=== PATIENT | male | born 1935 | race Caucasian/White ===

== ENCOUNTER → 2017-06-21 | Day surgery (SDC) | payer OTHER ==
[2017-05-25 10:30] VITALS: Ht 170.2 cm; Wt 83.2 kg
[~2017-06-21] VITALS: Ht 170.2 cm; Wt 83.2 kg
[~2017-06-21] MED LIST: 500ML BSS 0.3ML EPI 1:1000PF IRRIG ONE; ACETAMINOPHEN 325 MG TAB PO PRN; AMVISC PLUS 0.8ML SYRINGE INT OCU ONE; ASPEC81 PO; ATOR-24 PO; ATROPINE SULFATE 0.1 MG/ML 5ML SYR IV PRN; BSS FLUSH ONE; CINN500T PO; DORZ1SOL OPB; EpHEDrine SULFATE INJ 50 MG/ML AMP IV PRN; EpINEphrine INJ 1MG/ML AMP 1 MG/ML AMP ONE; FENTANYL CITRATE INJ 50 MCG/1 ML 2 ML VIAL IV PRN; FLV1 PO; GLC/500 PO; Glyburide PO; LACTATED RINGER'S 1000ML 500 ML IV SCH; LIDOCAINE 3.5% OPH GEL PER APPLICATION CHARGE ONE; LIDOCAINE HCL 1% MPF 2 ML VIAL ONE; LISI40TA PO; MIDAZOLAM HCL 1 MG/ML 2ML VIAL ONE; MULT-506 PO; OCUCOAT 1 ML SOLN IO ONE; OMEG10007 PO; ONDANSETRON INJ 2 MG/ML 2 ML VIAL IV PRN; POVIDONE-IODINE OP SOLN 30 ML BTL ONE; PROPARACAINE 0.5% OP SOLN PER DROP CHARGE OPL SCH; TOBRAMYCIN/DEXAMETHASONE OPH OINT PER APPLN CHARGE ONE
[2017-06-21] MEDS: PHENYLEPHRINE HCL 2.5% OP SOLN PER DROP CHARGE OPL SCH ×2 (06:40→06:46)
[2017-06-21] MEDS: TROPICAMIDE 1% OP SOLN PER DROP CHARGE OPL SCH ×2 (06:41→06:48)
[2017-06-21] MEDS: CYCLOPENTOLATE HCL 1% OP SOLN PER DROP CHARGE OPL SCH ×2 (06:43→06:49)
[2017-06-21] MEDS: KETOROLAC 0.5% OP SOLN PER DROP CHARGE OPL SCH ×2 (06:44→06:50)
[2017-06-21] MEDS: GATIFLOXACIN OP SOLN PER DROP CHARGE OPL SCH ×2 (06:45→07:02)
--- NOTE | 2017-06-21 06:56 | History & Physical Bridge - [place] ---
H&P Re-Evaluation Bridge Note: I have examined the patient, reviewed the History & Physical and in the interval since the performance of the History & Physical I have noted the following changes of clinical significance: No changes noted
--- NOTE | 2017-06-21 07:46 | Discharge Instructions-SurgCtr ---
Discharge Instructions Date of Service Jun 21, 2017. Visit Reason for Visit: Cataract Left Eye Discharge Discharge Diagnosis / Problem: cataract Discharge Goals Goal(s): Improve function Activity Recommendations Activity Limitations: per Instructions/Follow-up section Anesthesia . Post Anesthesia Instructions: If you have had General Anesthesia or IV Sedation: * Do not drive today. * Resume driving when surgeon permits. * Do not make important decisions or sign legal documents today. * Call surgeon for: 1. Temperature elevations greater than 101 degrees F. 2. Uncontrollable pain. 3. Excessive bleeding. 4. Persistent nausea and vomiting. 5. Medication intolerance (nausea, vomiting or rash). * For nausea and vomiting use only clear liquids such as: tea, soda, bouillon until nausea subsides, then gradually increase diet as tolerated. * If you have any concerns or questions, call your surgeon's office. If physician is unavailable and it is an emergency, call 911 or go to the nearest emergency room. . Diet Recommendations Home Diet: resume previous diet Procedures Procedures Performed: Left Cataract Phacoemulsification With Intraocular Lens Implant Pending Studies Studies pending at discharge: no Medical Emergencies . Who to Call and When: Medical Emergencies: If at any time you feel your situation is an emergency, please call 911 immediately. . Non-Emergent Contact Non-Emergency issues call your: Systems Specialist . . "Provider Documentation" section prepared by Ruperto Tran. .
--- NOTE | 2017-06-21 07:47 | [facility] Operative Report ---
Operative Report Date of Service Jun 21, 2017. Operative Report 1. PREOPERATIVE DIAGNOSIS: Cataract of the left eye. 2. POSTOPERATIVE DIAGNOSIS: Same. 3. PROCEDURE: Phacoemulsification with intraocular lens implantation of the left eye. SURGEON: Dr. Ruperto Tran. ANESTHESIA: Topical Lidocaine gel, 1% Non- Preserved intracameral Lidocaine, and monitored intravenous sedation. INDICATIONS FOR THE PROCEDURE: The patient is a 82 - year-old male with a history of cataract of the left eye causing significant visual impairment. The details of the proposed procedure were explained to the patient who asked appropriate questions and following discussion of all risks, benefits and alternatives agreed to have the procedure done. 4. OPERATION AND FINDINGS: DESCRIPTION OF PROCEDURE: After informed consent was obtained, the patient was brought to the Operating Room at the [facility]. The patient was placed in a supine position and then the left eye was prepped and draped in the usual sterile fashion for intraocular surgery. A drop of topical Lidocaine gel was placed in the operative eye. A wire lid speculum was then placed in the fornices. A corneal paracentesis was then created temporally. The Non-Preserved Lidocaine was then instilled into the anterior chamber. The anterior chamber was then pressurized with viscoelastic. A 2.0 mm clear corneal incision was then created temporally. A cystotome was inserted into the anterior chamber and used to create a tear in the anterior lens capsule. This capsular tear was then used to create a small flap and the flap was dragged in a counterclockwise direction in order to create a continuous curvilinear capsulorrhexis. Hydrodissection was accomplished with balanced salt solution. Phacoemulsification of the lens nucleus was then performed in a standard [id number] technique. The phaco time was 27 seconds with an average power of 12 %. The remaining cortical material was removed using irrigation aspiration. The capsular bag was then filled with viscoelastic. A [employer] MI60L +19.0 diopters lens was then loaded into the injector and injected into the capsular bag. The remaining viscoelastic was removed with the irrigation aspiration handpiece. The wound was hydrated and then checked and found to be watertight. The intraocular pressure was checked and found to be adequate. The wire lid speculum was removed and the patient's face was cleaned and dried. TobraDex ointment was placed in the inferior fornix. The patient was discharged to the Recovery Room having tolerated the procedure well. There were no complications. The patient will be seen tomorrow in the office for follow-up. I attest to the content of the Intraoperative Record and any orders documented therein. Any exceptions are noted below.
[2017-06-21 07:48] VITALS: TEMP 36.6
--- NOTE | 2017-06-21 08:06 | Anesthesia Progress Nt - [facility] ---
Anesthesia Post Op Note Date & Time Jun 21, 2017 at 08:06 Vital Signs Pain Intensity: 0 Vital Signs Past 12 Hours Date Time Temp Pulse Resp B/P (MAP) Pulse Ox O2 Delivery O2 Flow Rate FiO2 06/21/17 07:48 36.6 52 16 171/74 (106) 97 Room Air 06/21/17 06:32 37.0 62 18 161/78 (105) 95 Room Air Notes Mental Status: alert / awake / arousable, participated in evaluation Pt Amnestic to Procedure: Yes Nausea / Vomiting: adequately controlled Pain: adequately controlled Airway Patency, RR, SpO2: stable & adequate BP & HR: stable & adequate Hydration State: stable & adequate Anesthetic Complications: no major complications apparent
[2017-06-21 08:12] VITALS: BP 173/73; PULSE 52; O2SAT 96
== END | disposition home or self-care (01) ==
LOC: X.SURG 06:10
PROVIDERS: ATTEND Ophthalmology
DX: H26.9 Unspecified cataract (principal); E11.9 Type 2 diabetes mellitus without complications; I10 Essential (primary) hypertension; N52.9 Male erectile dysfunction, unspecified; I35.0 Nonrheumatic aortic (valve) stenosis; H90.3 Sensorineural hearing loss, bilateral; E78.5 Hyperlipidemia, unspecified; Z85.46 Personal history of malignant neoplasm of prostate; Z79.82 Long term (current) use of aspirin; E78.00 Pure hypercholesterolemia, unspecified

== ENCOUNTER 2020-09-06 02:44 | Inpatient (IN) ==
--- OUTSIDE RECORDS SUMMARY | 2020-09-06 02:50 | External Medical Summary | Continuity of Care Document ---
:1935 Author Name Raven Obrien Address Unavailable Unavailable , Care Team Providers Name Role Phone Raven Obrien Unavailable [email or web address] PCP, UNKNOWN Unavailable Unavailable Problems Active medical history not documented Allergies and Adverse Reactions Allergy history not documented Medications Medications not documented Procedures Procedures not documented Immunizations Immunizations not documented Plan of Treatment Planned Observations Planned Goals not documented Results No Known Results Results not documented
[2020-09-06] MEDS ORDERED: FAMOTIDINE 20MG/5ML IV PUSH IV STA (02:57)
[2020-09-06] MEDS ORDERED: SODIUM CHLORIDE 0.9% 1000ML 1,000 ML IV SCH (03:00)
--- NOTE | 2020-09-06 03:17 | Emergency Department Note ---
History of Present Illness General Chief complaint: Unresponsive Stated complaint: UNRESPONSIVE Time Seen by Provider: 09/06/20 02:51 Source: EMS Mode of arrival: EMS Limitations: altered mental status History of Present Illness Provider complaint: Unresponsive episode This is an 85-year-old male brought in from home via EMS due to a sudden change in mental status leading to unresponsiveness witnessed by the . The reported to EMS he had been having difficulty swallowing for 3 days, this evening suddenly appeared to be choking or gagging and then went unresponsive in front of her. She noted he did not appear to be breathing so she started doing CPR and called 911. On EMS arrival patient had a pulse and was hypertensive although had agonal respirations. They inserted an OPA without difficulty and began bagging the patient. denies any prior GI history. Stated he does have a history of dementia but has been fairly active and independent otherwise. No recent illness or change in medications. They did call for medical command for orders for etomidate in order to secure the patient's airway as even with bagging and improving oxygenation he continued to be unresponsive. Patient was intubated by EMS prior to arrival with a 7.5 ET tube. EMS did note that while they had a clear visualization of the airway there appeared to be emesis in the posterior oropharynx that required suctioning. No blood was noted. No other evidence of airway edema or foreign body. Patient given Versed 7.5 mg and fentanyl 150 mcg post intubation for sedation in route. There was additional emesis that required in line suctioning. Patient's blood pressure was improved upon arrival here, patient being bagged easily, and was still unresponsive. Pt seen during a time of high acuity and national emergency pandemic while wearing PPE. Home Medications Medication Instructions Recorded Confirmed Type amlodipine 5 mg PO DAILY 09/06/20 09/06/20 History aspirin [Children's Aspirin] 81 mg PO DAILY 09/06/20 09/06/20 History atorvastatin 40 mg PO DAILY 09/06/20 09/06/20 History cinnamon bark [Cinnamon] 500 mg PO DAILY 09/06/20 09/06/20 History folic acid 1 mg PO DAILY 09/06/20 09/06/20 History lisinopril 40 mg PO DAILY 09/06/20 09/06/20 History multivitamin 1 tab PO DAILY 09/06/20 09/06/20 History omega-3 fatty acids 1,000 mg PO DAILY 09/06/20 09/06/20 History Allergies Allergy/AdvReac Type Severity Reaction Status Date / Time Penicillins Allergy Unknown UNKNOWN Verified 09/06/20 03:06 REACTION - HAPPENED A CHILD Past Med/Surg History Social History Smoking Status: Unknown if ever smoked Preferred Language: Bengali Feels Safe at Home: Yes Review of Systems Unobtainable due to cognitive status and Unobtainable due to endotracheal tube Physical Exam Vital Signs Vital Signs - 24 hr 09/06/20 02:50 09/06/20 02:52 09/06/20 03:01 Pulse Rate 55 L 53 L 52 L Pulse Rate from SpO2 Sensor 53 L 52 L Respiratory Rate 20 Respiratory Effort / Characteristics Mechanically Ventilated Blood Pressure 132/55 L 132/55 L 111/76 Blood Pressure Mean 80 65 81 Pulse Oximetry 98 98 100 Oxygen Delivery Method Mechanical Vent Mechanical Vent Fraction of Inspired Oxygen Sepsis Recent Fever Within 48 Hours No Sepsis New/Unexplained Change in Mental Status Yes Sepsis Action Taken by Nursing No Action Required End-Tidal CO2 36 40 09/06/20 03:10 09/06/20 03:45 09/06/20 03:51 Pulse Rate 53 L 50 L 52 L Pulse Rate from SpO2 Sensor 53 L 50 L Respiratory Rate 13 17 Respiratory Effort / Characteristics Blood Pressure 113/50 L 161/61 H 189/175 H Blood Pressure Mean 60 83 179 Pulse Oximetry 97 100 100 Oxygen Delivery Method Mechanical Vent Mechanical Vent Mechanical Vent Fraction of Inspired Oxygen Sepsis Recent Fever Within 48 Hours Sepsis New/Unexplained Change in Mental Status Sepsis Action Taken by Nursing End-Tidal CO2 30 09/06/20 03:52 09/06/20 04:01 09/06/20 04:11 Pulse Rate 53 L 50 L 52 L Pulse Rate from SpO2 Sensor 51 L Respiratory Rate 19 14 12 Respiratory Effort / Characteristics Blood Pressure 176/63 H 183/68 H Blood Pressure Mean 85 89 Pulse Oximetry 97 100 100 Oxygen Delivery Method Mechanical Vent Mechanical Vent Fraction of Inspired Oxygen 50 Sepsis Recent Fever Within 48 Hours Sepsis New/Unexplained Change in Mental Status Sepsis Action Taken by Nursing End-Tidal CO2 38 09/06/20 04:20 09/06/20 04:30 09/06/20 04:40 Pulse Rate 70 50 L 50 L Pulse Rate from SpO2 Sensor 52 L 50 L Respiratory Rate 14 15 12 Respiratory Effort / Characteristics Blood Pressure 180/80 H 187/72 H 185/76 H Blood Pressure Mean 92 100 116 Pulse Oximetry 100 100 99 Oxygen Delivery Method Mechanical Vent Mechanical Vent Mechanical Vent Fraction of Inspired Oxygen Sepsis Recent Fever Within 48 Hours Sepsis New/Unexplained Change in Mental Status Sepsis Action Taken by Nursing End-Tidal CO2 09/06/20 04:50 09/06/20 05:00 09/06/20 05:10 Pulse Rate 67 48 L 48 L Pulse Rate from SpO2 Sensor 53 L 48 L 48 L Respiratory Rate 17 13 12 Respiratory Effort / Characteristics Blood Pressure 169/78 H 151/62 H 144/65 H Blood Pressure Mean 95 89 79 Pulse Oximetry 100 100 100 Oxygen Delivery Method Mechanical Vent Mechanical Vent Mechanical Vent Fraction of Inspired Oxygen Sepsis Recent Fever Within 48 Hours Sepsis New/Unexplained Change in Mental Status Sepsis Action Taken by Nursing End-Tidal CO2 GENERAL: unresponsive, intubated EYE EXAM: normal conjunctiva, pupils constricted and minimally reactive b/l OROPHARYNX: ETT in place, MMM NECK: supple, no nuchal rigidity, no adenopathy, non-tender LUNGS: Clear to auscultation. Normal chest wall mechanics, no w/r/r HEART: NAIDA noted, S1 normal and S2 normal ABDOMEN: abdomen soft, non-tender, normo-active bowel sounds, no masses, no rebound or guarding. Evidence of resolving ecchymosis at left costal margin BACK: Back is symmetrical on inspection and there is no deformity, no midline tenderness, no CVA tenderness. SKIN: no rashes and no bruising UPPER EXTREMITIES: upper extremities are grossly normal. nml pulses b/l. LOWER EXTREMITIES: No pitting edema. nml pulses b/l. NEURO EXAM: GCS 3 Course Course 0350: Pt's now here. VS stable. Hypothermia noted by staff. Will start rewarming. 0412: Discussed with patient's . She describes episodes of difficulty swallowing and choking over the last 2 weeks. She states she is perform the Heimlich maneuver on him several times as a result. She states her sister is up visiting from [place] and heard him get up in the middle the night and came and got her stating that he did not look well. She stated he appeared to be motioning as though he could not swallow or something was stuck again, however her sister had noted that it did not appear that he had been trying to eat anything. She states she again tried the Heimlich maneuver, and then tried to take him into the bathroom. States while trying to get him into the bathroom he became unresponsive and slumped to the floor and did not appear to be breathing normally. She denies that he is ever needed or had an EGD. He has no history of any esophageal or stomach problems. She denies any recent change in medication, other recent illness, or known sick contacts. 0426: Staff attempting to place madrigal. Pt hypertensive again. No response otherwise. Staff did state he did show some responsiveness when they performed COVID nasal swab. 0436: Discussed with Dr. Foster. 0511: Repeat ABg improved, discussed changes with RT Jody. 0547: VS stable. going home. Awaiting bed in ICU. Dr. Foster has seen the patient at bedside. Administered Medications Sodium Chloride (Nss 1000ml) 1,000 mls @ 125 mls/hr IV .Q8H MAYO Stop: 10/06/20 06:08 Last Admin: 09/06/20 06:37 Dose: 125 mls/hr Documented by: [id number] Propofol (Diprivan) 1,000 mg in 100 mls @ 2.328 mls/hr IV .Q24H MAYO; Protocol Stop: 09/09/20 06:08 Last Titration: 09/06/20 06:48 Dose: 5 mcg/kg/min, 2.3 mls/hr Documented by: [id number] Admin: 09/06/20 06:20 Dose: 20 mcg/kg/min, 9.3 mls/hr Documented by: [id number] Cosigned by: [id number] Fentanyl Citrate (Fentanyl Drip) 1,250 mcg in 250 mls @ 5 mls/hr IV .Q50H MAYO; Protocol Stop: 09/20/20 06:08 Last Admin: 09/06/20 06:19 Dose: 25 mcg/hr, 5 mls/hr Documented by: [id number] Cosigned by: [id number] Ertapenem 1,000 mg/ Sodium (Chloride) 60 mls @ 100 mls/hr IV ONE ONE Stop: 09/06/20 07:20 Last Admin: 09/06/20 06:44 Dose: 100 mls/hr Documented by: [id number] Discontinued Medications Famotidine (Famotidine 20mg/5ml Iv Push) 20 mg IV ONE STA Stop: 09/06/20 02:58 Last Admin: 09/06/20 03:47 Dose: 20 mg Documented by: [id number] Sodium Chloride (Nss 1000ml) 1,000 mls @ 125 mls/hr IV .Q8H MAYO Stop: 10/06/20 02:59 Last Admin: 09/06/20 03:48 Dose: 125 mls/hr Documented by: [id number] Piperacillin Sod/Tazobactam Sod (Zosyn) 4.5 gm in 120 mls @ 240 mls/hr IV NOW ONE Stop: 09/06/20 04:45 Last Infusion: 09/06/20 06:31 Dose: 0 mls/hr Documented by: [id number] Admin: 09/06/20 05:11 Dose: 240 mls/hr Documented by: [id number] Pantoprazole Sodium 40 mg/ (Syringe) 10 mls @ 5 mls/min IV NOW ONE Stop: 09/06/20 04:38 Last Admin: 09/06/20 05:11 Dose: 5 mls/min Documented by: [id number] Ioversol (Optiray 320 125ml) 120 ml IV ONCE ONE Stop: 09/06/20 03:46 Last Admin: 09/06/20 03:45 Dose: 120 ml Documented by: [id number] Critical Care Time Critical Care Time: Yes Total Critical Care Time: 52 Critical care of 52 min performed to assess and manage high likelihood of life- threatening ams, involving labs and imaging performed with assessment to eval uate ams diagnosis with frequent reassessment. This time includes bedside time, treatment discussions with patient/family/consultants, documentation time and excludes procedure time. Medical Decision Making Differential Diagnosis Differential diagnoses includes but is not limited to toxic, metabolic, infectious, traumatic, cardiac, neurologic, hematologic, psychiatric and inflammatory etiologies. Medical Records Attestation: I reviewed the patient's medical records. Home Medications Current Medication List: was personally reviewed by me Laboratory Data Attestation: I reviewed the patient's lab results. Result diagrams: 09/06/20 03:12 09/06/20 03:12 Lab Results 09/06/20 09/06/20 09/06/20 Range/Units 03:03 03:12 03:12 WBC 6.98 (4.8-10.8) K/uL RBC 3.82 L (4.7-6.1) M/uL Hgb 12.3 L (14.0-18.0) g/dL POC Hgb 11.6 L (14.0-18.0) g/dl Hct 36.7 L (42-52) % POC Hct 34 L (42-52) % MCV 96.1 (80-100) fL MCH 32.2 (25-34) pg MCHC 33.5 (32-36) g/dL RDW Std Deviation 45.0 (36.4-46.3) fL RDW Coeff of Ailyn 12.9 (11.5-14.5) % Plt Count 202 (130-400) K/uL MPV 10.1 (7.4-10.4) fL Immature Gran % (Auto) 0.1 % Neut % (Auto) 63.7 % Lymph % (Auto) 25.4 % [place] % (Auto) 8.2 % Eos % (Auto) 2.3 % Baso % (Auto) 0.3 % Neut # (Auto) 4.45 (1.4-6.5) K/uL Lymph # (Auto) 1.77 (1.2-3.4) K/uL [place] # (Auto) 0.57 (0.11-0.59) K/uL Eos # (Auto) 0.16 (0-0.5) K/uL Baso # (Auto) 0.02 (0-0.2) K/uL Immature Gran # (Auto) 0.01 (0.00-0.02) K/uL PT (9.0-12.0) Seconds INR (0.9-1.1) POC pH 7.26 L (7.35-7.45) POC pCO2 59 H (35-46) mmHg POC pO2 339 H (80-95) mmHg POC HCO3 27 H (19-24) sharron/L POC Total CO2 28 (24-31) mmol/L POC Base Excess -1.0 (-9-1.8) sharron/L POC ABG O2 Sat 100.0 H (90-95) % POC Sodium 139 (135-144) mmol/L Sodium 140 (136-145) mmol/L POC Potassium 3.6 (3.3-5.0) mmol/L Potassium 4.1 (3.5-5.1) mmol/L POC Chloride (101-112) mmol/L Chloride 109 H (98-107) mmol/L Carbon Dioxide 27 (21-32) mmol/L Anion Gap 4.0 (3-11) POC Anion Gap (16-25) mmol/L POC BUN (7-18) mg/dl BUN 38 H (7-18) mg/dl Creatinine 1.25 (0.6-1.4) mg/dl POC Creatinine (0.6-1.3) mg/dl Est Cr Clr Drug Dosing Not Reportable Est GFR ( Amer) 60.5 Est GFR (Non-Af Amer) 52.2 BUN/Creatinine Ratio 30.5 H (10-20) Glucose 154 H (70-99) mg/dl POC Glucose (other) (70-99) mg/dl Lactate (0.4-2.0) mmol/L Calcium 8.0 L (8.5-10.1) mg/dl POC Ioniz Calcium Jamia (1.12-1.32) mmol/l Magnesium 2.5 H (1.8-2.4) mg/dl Total Bilirubin 0.4 (0.2-1) mg/dl AST 23 (15-37) U/L ALT 24 (12-78) U/L Alkaline Phosphatase 105 (45-117) U/L Troponin I 0.027 (0-0.045) ng/ml NT-Pro-B Natriuret Pep 881 (0-1800) pg/ml Total Protein 6.7 (6.4-8.2) gm/dl Albumin 3.3 L (3.4-5.0) gm/dl Globulin 3.4 (2.5-4.0) gm/dl Albumin/Globulin Ratio 1.0 (0.9-2) Lipase 279 (73-393) U/L Procalcitonin (0-0.5) ng/ml TSH 3.140 (0.300-4.500) uIu/ml COVID-19 Eval Order SARS-CoV-2, RNA, NAAT (NEGATIVE) 09/06/20 09/06/20 09/06/20 Range/Units 03:12 03:12 03:12 WBC (4.8-10.8) K/uL RBC (4.7-6.1) M/uL Hgb (14.0-18.0) g/dL POC Hgb (14.0-18.0) g/dl Hct (42-52) % POC Hct (42-52) % MCV (80-100) fL MCH (25-34) pg MCHC (32-36) g/dL RDW Std Deviation (36.4-46.3) fL RDW Coeff of Ailyn (11.5-14.5) % Plt Count (130-400) K/uL MPV (7.4-10.4) fL Immature Gran % (Auto) % Neut % (Auto) % Lymph % (Auto) % [place] % (Auto) % Eos % (Auto) % Baso % (Auto) % Neut # (Auto) (1.4-6.5) K/uL Lymph # (Auto) (1.2-3.4) K/uL [place] # (Auto) (0.11-0.59) K/uL Eos # (Auto) (0-0.5) K/uL Baso # (Auto) (0-0.2) K/uL Immature Gran # (Auto) (0.00-0.02) K/uL PT 11.2 (9.0-12.0) Seconds INR 1.1 (0.9-1.1) POC pH (7.35-7.45) POC pCO2 (35-46) mmHg POC pO2 (80-95) mmHg POC HCO3 (19-24) sharron/L POC Total CO2 (24-31) mmol/L POC Base Excess (-9-1.8) sharron/L POC ABG O2 Sat (90-95) % POC Sodium (135-144) mmol/L Sodium (136-145) mmol/L POC Potassium (3.3-5.0) mmol/L Potassium (3.5-5.1) mmol/L POC Chloride (101-112) mmol/L Chloride (98-107) mmol/L Carbon Dioxide (21-32) mmol/L Anion Gap (3-11) POC Anion Gap (16-25) mmol/L POC BUN (7-18) mg/dl BUN (7-18) mg/dl Creatinine (0.6-1.4) mg/dl POC Creatinine (0.6-1.3) mg/dl Est Cr Clr Drug Dosing Est GFR ( Amer) Est GFR (Non-Af Amer) BUN/Creatinine Ratio (10-20) Glucose (70-99) mg/dl POC Glucose (other) (70-99) mg/dl Lactate 2.0 (0.4-2.0) mmol/L Calcium (8.5-10.1) mg/dl POC Ioniz Calcium Jamia (1.12-1.32) mmol/l Magnesium (1.8-2.4) mg/dl Total Bilirubin (0.2-1) mg/dl AST (15-37) U/L ALT (12-78) U/L Alkaline Phosphatase (45-117) U/L Troponin I (0-0.045) ng/ml NT-Pro-B Natriuret Pep (0-1800) pg/ml Total Protein (6.4-8.2) gm/dl Albumin (3.4-5.0) gm/dl Globulin (2.5-4.0) gm/dl Albumin/Globulin Ratio (0.9-2) Lipase (73-393) U/L Procalcitonin < 0.05 (0-0.5) ng/ml TSH (0.300-4.500) uIu/ml COVID-19 Eval Order SARS-CoV-2, RNA, NAAT (NEGATIVE) 09/06/20 09/06/20 09/06/20 Range/Units 03:14 03:20 03:20 WBC (4.8-10.8) K/uL RBC (4.7-6.1) M/uL Hgb (14.0-18.0) g/dL POC Hgb 12.2 L (14.0-18.0) g/dl Hct (42-52) % POC Hct 36 L (42-52) % MCV (80-100) fL MCH (25-34) pg MCHC (32-36) g/dL RDW Std Deviation (36.4-46.3) fL RDW Coeff of Ailyn (11.5-14.5) % Plt Count (130-400) K/uL MPV (7.4-10.4) fL Immature Gran % (Auto) % Neut % (Auto) % Lymph % (Auto) % [place] % (Auto) % Eos % (Auto) % Baso % (Auto) % Neut # (Auto) (1.4-6.5) K/uL Lymph # (Auto) (1.2-3.4) K/uL [place] # (Auto) (0.11-0.59) K/uL Eos # (Auto) (0-0.5) K/uL Baso # (Auto) (0-0.2) K/uL Immature Gran # (Auto) (0.00-0.02) K/uL PT (9.0-12.0) Seconds INR (0.9-1.1) POC pH (7.35-7.45) POC pCO2 (35-46) mmHg POC pO2 (80-95) mmHg POC HCO3 (19-24) sharron/L POC Total CO2 25 (24-31) mmol/L POC Base Excess (-9-1.8) sharron/L POC ABG O2 Sat (90-95) % POC Sodium 139 (135-144) mmol/L Sodium (136-145) mmol/L POC Potassium 4.0 (3.3-5.0) mmol/L Potassium (3.5-5.1) mmol/L POC Chloride 105 (101-112) mmol/L Chloride (98-107) mmol/L Carbon Dioxide (21-32) mmol/L Anion Gap (3-11) POC Anion Gap 15.0 L (16-25) mmol/L POC BUN 37 H (7-18) mg/dl BUN (7-18) mg/dl Creatinine (0.6-1.4) mg/dl POC Creatinine 1.2 (0.6-1.3) mg/dl Est Cr Clr Drug Dosing Est GFR ( Amer) Est GFR (Non-Af Amer) BUN/Creatinine Ratio (10-20) Glucose (70-99) mg/dl POC Glucose (other) 156 H (70-99) mg/dl Lactate (0.4-2.0) mmol/L Calcium (8.5-10.1) mg/dl POC Ioniz Calcium Jamia 1.18 (1.12-1.32) mmol/l Magnesium (1.8-2.4) mg/dl Total Bilirubin (0.2-1) mg/dl AST (15-37) U/L ALT (12-78) U/L Alkaline Phosphatase (45-117) U/L Troponin I (0-0.045) ng/ml NT-Pro-B Natriuret Pep (0-1800) pg/ml Total Protein (6.4-8.2) gm/dl Albumin (3.4-5.0) gm/dl Globulin (2.5-4.0) gm/dl Albumin/Globulin Ratio (0.9-2) Lipase (73-393) U/L Procalcitonin (0-0.5) ng/ml TSH (0.300-4.500) uIu/ml COVID-19 Eval [email or web address] SARS-[facility]-2, RNA, NAAT NEGATIVE (NEGATIVE) 09/06/20 Range/Units 05:13 WBC (4.8-10.8) K/uL RBC (4.7-6.1) M/uL Hgb (14.0-18.0) g/dL POC Hgb 11.9 L (14.0-18.0) g/dl Hct (42-52) % POC Hct 35 L (42-52) % MCV (80-100) fL MCH (25-34) pg MCHC (32-36) g/dL RDW Std Deviation (36.4-46.3) fL RDW Coeff of Ailyn (11.5-14.5) % Plt Count (130-400) K/uL MPV (7.4-10.4) fL Immature Gran % (Auto) % Neut % (Auto) % Lymph % (Auto) % [place] % (Auto) % Eos % (Auto) % Baso % (Auto) % Neut # (Auto) (1.4-6.5) K/uL Lymph # (Auto) (1.2-3.4) K/uL [place] # (Auto) (0.11-0.59) K/uL Eos # (Auto) (0-0.5) K/uL Baso # (Auto) (0-0.2) K/uL Immature Gran # (Auto) (0.00-0.02) K/uL PT (9.0-12.0) Seconds INR (0.9-1.1) POC pH 7.30 L (7.35-7.45) POC pCO2 51 H (35-46) mmHg POC pO2 106 H (80-95) mmHg POC HCO3 25 H (19-24) sharron/L POC Total CO2 27 (24-31) mmol/L POC Base Excess -1.0 (-9-1.8) sharron/L POC ABG O2 Sat 97.0 H (90-95) % POC Sodium 139 (135-144) mmol/L Sodium (136-145) mmol/L POC Potassium 3.9 (3.3-5.0) mmol/L Potassium (3.5-5.1) mmol/L POC Chloride (101-112) mmol/L Chloride (98-107) mmol/L Carbon Dioxide (21-32) mmol/L Anion Gap (3-11) POC Anion Gap (16-25) mmol/L POC BUN (7-18) mg/dl BUN (7-18) mg/dl Creatinine (0.6-1.4) mg/dl POC Creatinine (0.6-1.3) mg/dl Est Cr Clr Drug Dosing Est GFR ( Amer) Est GFR (Non-Af Amer) BUN/Creatinine Ratio (10-20) Glucose (70-99) mg/dl POC Glucose (other) (70-99) mg/dl Lactate (0.4-2.0) mmol/L Calcium (8.5-10.1) mg/dl POC Ioniz Calcium Jamia (1.12-1.32) mmol/l Magnesium (1.8-2.4) mg/dl Total Bilirubin (0.2-1) mg/dl AST (15-37) U/L ALT (12-78) U/L Alkaline Phosphatase (45-117) U/L Troponin I (0-0.045) ng/ml NT-Pro-B Natriuret Pep (0-1800) pg/ml Total Protein (6.4-8.2) gm/dl Albumin (3.4-5.0) gm/dl Globulin (2.5-4.0) gm/dl Albumin/Globulin Ratio (0.9-2) Lipase (73-393) U/L Procalcitonin (0-0.5) ng/ml TSH (0.300-4.500) uIu/ml COVID-19 Eval Order SARS-CoV-2, RNA, NAAT (NEGATIVE) Imaging Data Radiologist's Impression: CT head: No ICH, mass-effect or edema. No evidence of acute cortical stroke. Visualized sinuses and mastoid air cells are clear. CTA chest: Heart is mildly enlarged. There are mild atherosclerotic changes in the thoracic aorta with some distention of the ascending aorta measuring 4 cm. There is no dissection. There is no pulmonary embolism. There is thickening and mild distention of the thoracic esophagus. There is an endotracheal tube within the thoracic trachea. The tip is 3.8 cm superior to the rima. There is some linear groundglass densities at the lung bases suggesting subsegmental atelectasis. Impression: No pulmonary embolism. Distention of the thoracic esophagus possibly related to reflux, or distal stricture. Groundglass density at the lung base may reflect atelectasis, or possibly aspiration. CT abdomen and pelvis with contrast: Liver spleen pancreas and gallbladder appear normal. Stomach and small bowel appear normal. There is a large amount of retained fecal material distal colon. The adrenals kidneys ureters and bladder appear normal. There are moderate atherosclerotic changes in the abdominal aorta. There is no free peritoneal air or fluid. Impression: Constipation. Radiologist: Jose Torres MD ECG Data Attestation: I personally reviewed and interpreted this ECG as follows: Indication: + altered mental status Rate (beats per minute): 56 Rhythm: + sinus bradycardia ECG Intervals/blocks: + First degree AV block, + Normal QRS and + Normal QT ECG Hines: + Normal ECG ST segments: + Normal ST segments MDM Narrative This is an 85-year-old male brought in by EMS after an abrupt episode of unresponsiveness and respiratory failure at home. Patient intubated prehospital with emesis noted and concern for likely aspiration. Labs are drawn and sent, patient transition to ventilator on arrival here however patient still unresponsive. While patient was given Versed and fentanyl by EMS post intubation prehospital, no additional medications were given here. No improvement in the patient's level of mentation by arrival despite stable vital signs and improved oxygenation. Patient had no recurrent episodes of emesis once here. After obtaining additional IV access sites and labs, patient sent for CT imaging. Stat chest x-ray bedside did confirm tube placement, no obvious pulmonary edema, pneumothorax, or focal consolidation noted. ET tube appeared to be in good position. Maintenance IV fluids were started, and patient remained hemodynamically stable and transferred to CT and back. Upon arrival patient's , I discussed with her the events of this evening as well as her findings so far. CT imaging did not reveal any other acutely concerning pathology. Likely 's description of recent difficulty swallowing with episodes of choking and gagging will require additional GI evaluation and likely endoscopy. At this time there is no evidence for bacteremia/sepsis. CT did not reveal acute ICH, tumor, or obvious stroke. Patient was a stable H&H, stable creatinine although appearance of likely dehydration given ratio of BUN to creatinine, negative troponin and reassuring EKG. No other ectopy or dysrhythmia noted on telemetry. Patient's updated at bedside. Repeat ABG performed to continue to make adjustments to the ventilator. Patient seen and evaluated by hospitalist at bedside patient transferred to ICU. Patient was noted to be hypothermic, a warming blanket was placed. At the time patient was being transferred to the ICU, he began to show more purposeful movement, opened eyes spontaneously, and was moving extremities. Nursing staff did attempt to place madrigal catheter several times and given resistance of enlarged prostate, could not successfully pass this. Due to concern for trauma and unclear etiology of other symptoms at that time, a condom catheter was placed to monitor urine output and urology can be consulted at a later time. An order was placed for continuous cardiac monitoring. The monitor shows a rate of _56_ with _sinus bradycardia_ rhythm. Impression & Plan Unresponsive, Respiratory failure, Aspiration into airway, Hypothermia, Bradycardia Discharge Plan Visit Data Chief Complaint: Unresponsive Stated Complaint: UNRESPONSIVE ED Provider: Reyna Elmore Discharge Problem: Unresponsive, Respiratory failure, Aspiration into airway, Hypothermia, Bradycardia Patient Disposition: Admitted As Inpatient Discharge Instructions Interventions: ED Discharge Assessment Last Done: 09/06/20 06:32 Discharge Problem: Respiratory failure Qualifiers: Chronicity: acute Respiratory failure complication: hypoxia and hypercapnia Qualified Code(s): J96.01 - Acute respiratory failure with hypoxia Aspiration into airway Qualifiers: Encounter type: initial encounter Qualified Code(s): T17.908A - Unspecified foreign body in respiratory tract, part unspecified causing other injury, initial encounter Hypothermia Qualifiers: Encounter type: initial encounter Qualified Code(s): T68.XXXA - Hypothermia, initial encounter
[2020-09-06 03:19] LABS: iSTAT Arterial Blood Gas HCO3 27 meg/L (19-24); iSTAT Arterial Blood Gas pCO2 59 mmHg (35-46); iSTAT Arterial Blood Gas pH 7.26 (7.35-7.45); iSTAT Arterial Blood Gas pO2 339 mmHg (80-95); iSTAT Carbon Dioxide 28 mmol/L (24-31); iSTAT Hematocrit 34 % (42-52); iSTAT Hemoglobin 11.6 g/dl (14.0-18.0); iSTAT Potassium 3.6 mmol/L (3.3-5.0); iSTAT Sodium 139 mmol/L (135-144)
[2020-09-06 03:21] LABS: Basophils # (auto) 0.02 K/uL (0-0.2); Basophils % (auto) 0.3 %; Eosinophils # (auto) 0.16 K/uL (0-0.5); Eosinophils % (auto) 2.3 %; Hematocrit (blood only) 36.7 % (42-52); Hemoglobin 12.3 g/dL (14.0-18.0); Immature Granulocytes # (auto) 0.01 K/uL (0.00-0.02); Immature Granulocytes % (auto) 0.1 %; Lymphocytes # (auto) 1.77 K/uL (1.2-3.4); Lymphocytes % (auto) 25.4 %; Mean Corpuscular Hemoglobin 32.2 pg (25-34); Mean Corpuscular Hgb Conc 33.5 g/dL (32-36); Mean Corpuscular Volume 96.1 fL (80-100); Mean Platelet Volume 10.1 fL (7.4-10.4); Monocytes # (auto) 0.57 K/uL (0.11-0.59); Monocytes % (auto) 8.2 %; Neutrophils # (auto) 4.45 K/uL (1.4-6.5); Neutrophils % (auto) 63.7 %; Platelet Count 202 K/uL (130-400); RDW Coefficient of Variation 12.9 % (11.5-14.5); Red Blood Count 3.82 M/uL (4.7-6.1); White Blood Count 6.98 K/uL (4.8-10.8)
[2020-09-06 03:31] LABS: iSTAT Creatinine 1.2 mg/dl (0.6-1.3); iSTAT Hemoglobin 12.2 g/dl (14.0-18.0); iSTAT Ionized Calcium 1.18 mmol/l (1.12-1.32)
[2020-09-06 03:37] LABS: INR 1.1 (0.9-1.1); Prothrombin Time 11.2 Seconds (9.0-12.0)
[2020-09-06 03:39] LABS: Alanine Aminotransferase 24 U/L (12-78); Albumin Level 3.3 gm/dl (3.4-5.0); Aspartate Aminotransferase 23 U/L (15-37); BUN Creatinine Ratio 30.5 (10-20); Blood Urea Nitrogen 38 mg/dl (7-18); Carbon Dioxide 27 mmol/L (21-32); Chloride 109 mmol/L (98-107); Est GFR (African American) 60.5; Est GFR (Non-African American) 52.2; Glucose 154 mg/dl (70-99); Lipase 279 U/L (73-393); Magnesium 2.5 mg/dl (1.8-2.4); Potassium 4.1 mmol/L (3.5-5.1); Sodium 140 mmol/L (136-145)
[2020-09-06] MEDS ORDERED: OPTIRAY 320 125ml IV ONE (03:45)
[2020-09-06 03:50] LABS: Alkaline Phosphatase 105 U/L (45-117); Bilirubin,Total 0.4 mg/dl (0.2-1); Globulin 3.4 gm/dl (2.5-4.0); NT Pro B Type Natriuretic Pept 881 pg/ml (0-1800); Total Protein 6.7 gm/dl (6.4-8.2); Troponin I 0.027 ng/ml (0-0.045)
[2020-09-06] MEDS ORDERED: PIPERACILL/TAZOBAC CONSULT ACTIVE PRN (04:16)
[2020-09-06] MEDS ORDERED: PIPERACILLIN/TAZOBACTAM 4.5 GM/120 ML BAG IV ONE (04:16)
[2020-09-06] MEDS ORDERED: PANTOprazole 40 MG in SYRINGE 0 ML IV ONE (04:37)
[2020-09-06 05:27] LABS: iSTAT Arterial Blood Gas HCO3 25 meg/L (19-24); iSTAT Arterial Blood Gas pCO2 51 mmHg (35-46); iSTAT Arterial Blood Gas pO2 106 mmHg (80-95); iSTAT Carbon Dioxide 27 mmol/L (24-31); iSTAT Hematocrit 35 % (42-52); iSTAT Hemoglobin 11.9 g/dl (14.0-18.0); iSTAT Potassium 3.9 mmol/L (3.3-5.0); iSTAT Sodium 139 mmol/L (135-144)
[2020-09-06] MEDS ORDERED: ICU PROTOCOL FOR HYPERGLYCEMIA PRN (06:09)
[2020-09-06] MEDS ORDERED: fentaNYL DRIP 1,250 MCG/250 ML BAG IV SCH (06:09)
[2020-09-06] MEDS ORDERED: PROPOFOL BOLUS FROM BAG IV PRN (06:09)
[2020-09-06] MEDS ORDERED: hydrALAZINE HCL 20 MG/ML VIAL IV PRN (06:09)
[2020-09-06] MEDS ORDERED: LORazepam 0.5 MG/1 ML VIAL IV PRN (06:09)
[2020-09-06] MEDS ORDERED: STAT IV Infusion **Titration per Protocol STA ×5 (06:09→12:11)
[2020-09-06] MEDS: propofoL 1,000 MG/100 ML VIAL IV SCH ×2 (06:20→15:01)
[2020-09-06] MEDS ORDERED: ERTAPENEM CONSULT ACTIVE PRN (06:29)
[2020-09-06] MEDS ORDERED: CARBOHYDRATES FOR HYPOGLYCEMIA PO PRN (06:30)
[2020-09-06] MEDS ORDERED: GLUCAGON FOR INJ 1 MG VIAL SQ PRN (06:30)
[2020-09-06] MEDS ORDERED: PATIENT'S HEIGHT AND/OR WEIGHT NEEDED SCH (06:30)
[2020-09-06] MEDS ORDERED: GLUCOSE 40% GEL 15 GM TUBE PO PRN (06:30)
[2020-09-06] MEDS ORDERED: DEXTROSE 50% 50 ML SYRINGE IV PRN (06:30)
[2020-09-06] MEDS ORDERED: GLUCOSE 10 TABS/TUBE PO PRN (06:30)
[2020-09-06] MEDS: SODIUM CHLORIDE 0.9% 1000ML 1,000 ML IV SCH ×3 (06:37→19:04)
[2020-09-06] MEDS ORDERED: ERTAPENEM SODIUM 1,000 MG in SODIUM CHLORIDE 0.9% 50 ML IV ONE (06:45)
[2020-09-06] MEDS: INSULIN ASPART 100 UNITS/ML 3 ML PEN SC SCH ×4 (08:02→21:32)
--- NOTE | 2020-09-06 08:09 | CT Scan Report ---
CT OF THE HEAD WITHOUT CONTRAST CLINICAL HISTORY: Altered mental status. COMPARISON STUDY: Head CT December 12, 2010. TECHNIQUE: Helical axial images of the head were obtained without IV contrast. Automated exposure con trol was utilized for the study. A dose lowering technique was utilized adhering to the principles o f ALARA. FINDINGS: No acute intracranial hemorrhage, midline shift or mass effect is present. Mild ventricular dilatation is due to atrophy. Basal cisterns are patent. There are no extra axial collections. Exten sive white matter hypodensity suggests small vessel disease. There are no findings to suggest acute d ural sinus thrombosis or acute territorial infarct. There is no calvarial fracture. Postoperative fin dings within the facial bones are noted. IMPRESSION: No acute intracranial findings. ACT 112: Negative or not required by law. Electronically signed by: Justin Penaloza M.D. 09/06/2020 8:07 AM
--- NOTE | 2020-09-06 08:18 | XRay Report ---
XR chest 1V portable CLINICAL HISTORY: Respiratory failure. Unresponsive patient. COMPARISON STUDY: December 2010 FINDINGS: There is an endotracheal tube 44 mm above the rima. The heart is enlarged. There are incr eased markings at the left lung base, atelectatic versus infectious/inflammatory. No pneumothorax is visualized.[ IMPRESSION: 1. Endotracheal 2 44 mm above the rima 2. Left basilar opacities, atelectatic versus infectious/inflammatory. ACT 112: Negative or not required by law. Electronically signed by: Sagar Randle M.D. 09/06/2020 8:17 AM
--- NOTE | 2020-09-06 08:20 | XRay Report ---
XR KUB/Abdomen 1 view CLINICAL HISTORY: vomiting COMPARISON STUDY: No previous studies for comparison. FINDINGS: 2 portable views are provided for interpretation. The lateral aspect of the left abdomen is not included. There are no transition zones to indicate bowel obstruction. There is moderate stool a t the level of the hepatic flexure. There is a lumbar levoscoliosis. There are dense calcifications i n the region of the mitral valve annulus. IMPRESSION: 1. Technically limited study 2. Nonobstructive bowel gas pattern 3. Moderate stool at the level of the hepatic flexure ACT 112: Negative or not required by law. Electronically signed by: Sagar Randle M.D. 09/06/2020 8:19 AM
--- NOTE | 2020-09-06 08:20 | CT Scan Report ---
CT ANGIOGRAPHY OF THE CHEST, PULMONARY EMBOLUS PROTOCOL CLINICAL HISTORY: unresponsive, hx aneurysm COMPARISON STUDY: Chest radiograph December 12, 2010 and September 06, 2020. TECHNIQUE: Following IV administration of 120 mL of Optiray-320, helical axial images of the chest we re obtained utilizing the pulmonary embolus protocol. Maximal intensity projections and sagittal and coronal reformats were viewed on an independent 3D workstation. IV contrast was administered withou t complication. Automated exposure control was utilized for the study. A dose lowering technique wa s utilized adhering to the principles of ALARA. CT DOSE: 2000.93 mGy.cm FINDINGS: The tip of the endotracheal tube is 4 cm above the rima. No pulmonary emboli are identif ied. The ascending aorta is dilated, measuring 4.3 cm. Moderate cardiomegaly is noted. There is exten sive mitral annular calcification and moderate coronary artery calcification. There is no pericardial effusion. No enlarged thoracic lymph nodes are present. The esophagus is moderately distended and de bris-filled. Central airways are patent. There is mild emphysema. Mild to moderate multifocal groundg lass opacities are noted within the lungs. There are multiple age-indeterminate but likely old bilate ral anterior rib fractures. The abdomen and pelvis will be reported separately. IMPRESSION: 1. No pulmonary emboli identified. 2. Multifocal groundglass opacities within the lungs which favor an infectious process or sequela of aspiration. 3. Moderately distended debris-filled esophagus. 4. Moderate cardiomegaly. 5. Ectatic ascending aorta, measuring 4.3 cm. 6. Tip of endotracheal tube 4 cm above the rima. ACT 112: Negative or not required by law. Electronically signed by: Justin Penaloza M.D. 09/06/2020 8:19 AM
--- NOTE | 2020-09-06 08:32 | CT Scan Report ---
CT OF THE ABDOMEN AND PELVIS WITH CONTRAST CLINICAL HISTORY: abn xray, vomiting COMPARISON STUDY: KUB performed earlier today. TECHNIQUE: Following IV administration of 120 mL of Optiray-320, axial images of the abdomen and pelv is were obtained from the lung bases to the proximal femurs. Images were reviewed in the axial, sagit jasmyne, and coronal planes. IV contrast was administered without complication. Automated exposure contr ol was utilized for the study. A dose lowering technique was utilized adhering to the principles of ALARA. FINDINGS: Please note that the chest will be reported separately. No pneumatosis, free air or portal venous gas is present. There is no biliary or pancreatic ductal dilatation. Exam is mildly compromise d by artifact. There is mild left renal atrophy. No hydronephrosis is present. The spleen, adrenal gl ands are unremarkable. There is no evidence for a bowel obstruction. There is a moderate to large higinio unt stool within the colon and rectum. There is no ascites. No lymphadenopathy is present. No acute f racture or suspicious lesion is identified within visualized skeletal structures. There is extensive plaque of the abdominal aorta. IMPRESSION: 1. Moderate to large amount of stool within the colon and rectum. 2. No bowel obstruction. No bowel wall thickening. ACT 112: Negative or not required by law. Electronically signed by: Justin Penaloza M.D. 09/06/2020 8:30 AM
[2020-09-06] MEDS: PANTOprazole 40 MG in SYRINGE 0 ML IV SCH ×2 (09:21→21:27)
--- NOTE | 2020-09-06 09:52 | History and Physical Report ---
DATE OF ADMISSION: 09/06/2020 CHIEF COMPLAINT: Unresponsive episode, possible aspiration. HISTORY OF PRESENT ILLNESS: This is an 85-year-old male with past medical history significant for type 2 diabetes, not on any medications, hyperlipidemia, chronic rhinitis, ascending aortic dilatation, severe aortic valve stenosis, history of mitral valve vegetation, hypertension, mitral valve insufficiency, benign neoplasm of colon, nocturnal enuresis, sensorineural hearing loss, Alzheimer's dementia, history of prostate cancer, who lives with his . As per , the patient has significant dementia. He knows his name, knows his , but keeps on repeating the same thing. His appetite is good, he is supposed to use cane while walking, but ambulates without any support and is lately falling frequently and for last few weeks ago, he is also having some episodes of choking after eating. His asked him to use his dentures before eating but does not use them and he complains of food stuck in his throat and she has to do Heimlich maneuver few times.Tonight he had a good dinner and he used his dentures tonight and he went to sleep. He sleeps downstairs in his cave and in the middle of night around 2:00-2:30 a.m., he woke up and came upstairs and his sister who is visiting noticed him and she called his that he is not looking good and when she came and saw the patient, he was pointing his hand to his throat and chest. He was not able to speak, when they asked whether he ate anything, they took him to the bathroom to make him vomit, but in the bathroom suddenly he collapsed and became unresponsive. They called EMS and when the EMS came, and there was a pulse and they started bagging him and his oxygen saturation was okay and BP was somewhat high, but as he was still unresponsive, they decided to intubate him to protect his airway. He was intubated without any difficulty. They found some vomitus in the back of his throat, which was aspirated and the patient was given Versed and fentanyl after that the patient was brought into the hospital.Patient was still unresponsive in the ER. His labs were unremarkable. His imaging studies, he had CT of the head,CTA chest and CT of abdomen and pelvis were done which showed mid thoracic dilatation and possible atelectasis with aspiration. Currently trying to open his eyes, but still mostly unresponsive. Vitals are stable on the monitor. His initial ABG with point of care pH of 7.26, pCO2 was 59, pO2 was 339 and bicarbonate was 27, oxygen was 100% on vent. Initial labs were okay. SARS-CoV-2 were negative. in the room. She is okay with full code for short term, but does not want him to be on it group home if no chance of recovery. ER also gave him Zosyn and fluids. ALLERGIES: PENICILLIN, UNKNOWN REACTION HAPPENED A CHILD LOOKS LIKE HAD HIVES PER THE [facility]. PAST MEDICAL HISTORY: As mentioned above. PAST SURGICAL HISTORY: Bone marrow harvest, colonoscopy, hysteroscopy, facial reconstruction, cryo prostate procedure, prostrate punch biopsy, lumbar disc excision, removal of the pilonidal cyst, tonsillectomy and adenoidectomy, right rotator cuff repair. MEDICATIONS: The patient is on amlodipine 5 mg p.o. daily, aspirin 81 mg p.o. daily, atorvastatin 40 mg p.o. daily, cinnamon bark 50 mg p.o. daily, folic acid 1 mg p.o. daily, lisinopril 40 mg p.o. daily, multivitamin 1 tablet p.o. daily, omega 3 fatty acids 1000 mg p.o. daily. FAMILY HISTORY: Significant for mother had heart disorder at age 60 of abdominal aortic aneurysm. Sister had leukemia, at age of 56. Father had stroke, at age of 22. SOCIAL HISTORY: . Former smoker, quit in 1973. Smoked 3 packs a day for 10 years. Alcoholism, one or two drinks every month. No drug use. REVIEW OF SYMPTOMS: As per HPI. Rest of review of symptoms, the patient is unresponsive and could not get any review of symptoms, all the history got from the and as per no recent complaint of any fever, chills, no complaints of any chest pain or abdominal pain or headache. No nausea, vomiting. No diarrhea or constipation. PHYSICAL EXAMINATION: GENERAL: The patient is status post intubation and sedated. VITAL SIGNS: Temperature afebrile, pulse 61, respiratory rate 17, blood pressure 169/70, oxygen 100% on mechanical vent. HEENT: Pupils pinpoint sluggish to react to light, patient is status post intubation. NECK: No neck masses seen. CARDIOVASCULAR: S1, S2, regular, no murmur, no gallop. RESPIRATORY SYSTEM: Normal AP diameter. No accessory muscle use. No wheezing, no crackles. ABDOMEN: Soft, bowel sounds present. No distention. CENTRAL NERVOUS SYSTEM: The patient is currently intubated and sedated, moves his left foot to painful stimuli. EXTREMITIES: No edema, no erythema. LABORATORY DATA: WBC 6.9, hemoglobin 12.3, hematocrit 11.9, platelets 202. PT 11.2, INR 1.1. Repeat ABGs: Point of care pH of 7.3, point of care pCO2 51.8, pO2 106, point of care bicarbonate 125, oxygen 97%. Sodium 140, potassium 4.1, chloride 109, CO2 27, BUN 38, creatinine 1.2, serum glucose 154. Lactate 2, calcium 8, magnesium 2.5, total bilirubin 0.4, AST 23, ALT 24, alkaline phosphatase 105. Troponin I 0.02. BNP 881, lipase 279. Procalcitonin less than 0.05. TSH 3.4. SARS-CoV-[address] head, on the preliminary report, no acute findings seen. CT of the chest, heart is mildly enlarged. There are mild atherosclerotic changes in thoracic aorta with some distention of the ascending aorta, measuring 4 cm. There is no dissection. There is no pulmonary embolism. There is thickening and mild distention of the thoracic esophagus. Endotracheal tube within the thoracic trachea 3.8 cm superior to the rima, linear ground-glass densities at the lung bases suggesting subsegmental atelectasis. IMPRESSION: No pulmonary embolism, distention of the thoracic esophagus, possibly related to reflux distal stricture, ground-glass densities at the lung bases may reflect atelectasis or possibly aspiration. CT abdomen and pelvis, constipation; large amount of retained fecal material in the distal colon. Chest x-ray, no acute findings. EKG: Sinus bradycardia, rate of 56, first degree AV block, nonspecific T-wave abnormalities, no acute ST changes seen. ASSESSMENT AND PLAN: This is an 85-year-old male presented unresponsive and shortness of breath. 1. Unresponsiveness episode possibly secondary to aspiration. The patient was having choking episodes for last of couple of weeks as per his and today when he woke up at 2:30 a.m., he was pointing his hand to his throat before he became unresponsive.Imaging studies show dilated esophagus, possibly aspiration. Currently, still intubated and nonresponsive. CT of head is unremarkable. CT abdomen and pelvis also unremarkable except for constipation. CTA of the chest, no PE, no dissection,possible dilated thoracic esophagus. ERl empirically start Zosyn as the patient is allergic to penicillin(hives), will change to Invanz. Consult GI and IV Protonix .Patient will be monitored in ICU, Critical care doctor notified. Continue with vent management for now. The patient is going to be started on Diprivan and further vent management as per critical care. Close monitor in ICU.Follow ABG. 2. Severe aortic stenosis. Getting fluids. Monitor for any volume overload. Previously had echocardiogram in 07/2020. 3. Type 2 diabetes, not on any medications, we will start him on insulin sliding scale.Follow hba1c levles and blood sugars. 4. Hypertension, on lisinopril and amlodipine which we are holding . iv hydralazine prn. No beta blockers because of hx of resting bradycardia 5. Alzheimer's dementia: Monitor for any delirium. 6. Hyperlipidemia: Holding statin for now. 7. Deep venous thrombosis prophylaxis, sequential compression devices for now. 8. Disposition, closely monitor in the ICU. Level 1 full code as per my discussion with only if there is chance of recovery. PT and OT prior to discharge. Social service to help with discharge planning. SAVI
--- NOTE | 2020-09-06 10:08 | Urology Consultation ---
Date of Consultation September 06, 2020 Assessment & Plan (1) Respiratory failure: (2) BPH (benign prostatic hyperplasia): At the bedside, cystoscopy was performed. A false passage was noted within the prostatic urethra. A 16F [place] madrigal catheter was placed over a wire. Clear urine then drained. Rec leaving the catheter in place until pt is medically stable. History of Present Illness Attending Physician: Lenny Aviles MD 85 y/o male admitted with ICU on vent for possible aspiration and resp failure. Attempts were made a placing a madrigal catheter but were unsuccessful. Urology was then consulted. No other hx was obtained due to the patient being intubated. Prior attempts were made by nursing with coudes. PVR was >600cc. Allergies Allergy/AdvReac Type Severity Reaction Status Date / Time Penicillins Allergy Unknown UNKNOWN Verified 09/06/20 03:06 REACTION - HAPPENED A CHILD Home Medications Medication Instructions Recorded Confirmed Type amlodipine 5 mg PO DAILY 09/06/20 09/06/20 History aspirin [Children's Aspirin] 81 mg PO DAILY 09/06/20 09/06/20 History atorvastatin 40 mg PO DAILY 09/06/20 09/06/20 History cinnamon bark [Cinnamon] 500 mg PO DAILY 09/06/20 09/06/20 History folic acid 1 mg PO DAILY 09/06/20 09/06/20 History lisinopril 40 mg PO DAILY 09/06/20 09/06/20 History multivitamin 1 tab PO DAILY 09/06/20 09/06/20 History omega-3 fatty acids 1,000 mg PO DAILY 09/06/20 09/06/20 History Patient History Social History Smoking Status: Unknown if ever smoked Hx Alcohol Use: No Hx Substance Use: No Preferred Language: [place]ian Communication Ability: Impaired Annual [employer] Required: No Beliefs That Will Affect Care: None Current Living Situation: Spouse Other Information That Helps Us Care for You: No Feels Safe at Home: Yes Safety Concerns: Feels Safe At This Time Assistive Devices: Oxygen - Continuous Review of Systems Review of Systems: All systems reviewed & are unremarkable except as noted in HPI & below Physical Exam Constitutional: + ill appearing Eyes: PERRL, conjunctivae normal, anicteric sclerae Neck: trachea midline, no thyromegaly Respiratory: normal respiratory effort, lungs clear to auscultation Cardiovascular: RRR, no murmur, no edema Musculoskeletal: no cyanosis or clubbing, extremities motor strength 5/5 Neurologic: patellar DTR's 2+ bilat, sensation intact Genitourinary: + circumcised Lymphatic: no cervical or axillary lymphadenopathy Results & Data ([facility]) Vital Signs (Past 12 Hours) Vital Signs Temp Pulse Pulse Resp BP BP Pulse Ox 09/06/20 08:00 57 L 121/51 L 100 09/06/20 07:53 56 L 136/54 L 100 09/06/20 07:45 59 L 21 152/55 H 98 09/06/20 07:00 36.4 C L 52 L 97/48 L 100 09/06/20 06:46 53 L 98/49 L 100 09/06/20 06:38 36.3 C L 54 L 100/51 L 100 09/06/20 06:20 36.3 C L 54 L 20 100/51 L 100 09/06/20 06:00 18 100 09/06/20 05:50 34.9 C L 53 L 19 131/84 100 09/06/20 05:40 47 L 14 119/54 L 99 09/06/20 05:31 48 L 24 100 09/06/20 05:30 47 L 21 124/57 L 100 09/06/20 05:20 47 L 13 139/57 L 100 09/06/20 05:10 48 L 12 144/65 H 100 09/06/20 05:00 48 L 13 151/62 H 100 09/06/20 04:50 67 17 169/78 H 100 09/06/20 04:40 50 L 12 185/76 H 99 09/06/20 04:30 50 L 15 187/72 H 100 09/06/20 04:20 70 14 180/80 H 100 09/06/20 04:11 52 L 12 183/68 H 100 09/06/20 04:01 50 L 14 176/63 H 100 09/06/20 03:52 53 L 19 97 09/06/20 03:51 52 L 17 189/175 H 100 09/06/20 03:45 50 L 13 161/61 H 100 09/06/20 03:10 53 L 113/50 L 97 09/06/20 03:01 52 L 111/76 100 09/06/20 02:52 53 L 132/55 L 98 09/06/20 02:50 55 L 20 132/55 L 98 PG Care Time/CCT Total # of Minutes Spent Total Time Spent with Patient: Total time spent is greater than 50% in coordination of care (as documented) at patient's floor/unit and/or counseling patient: Coding Level of Care Code 08101 Inpt Consult Level 3 Diagnoses Respiratory failure J96.01; J96.02 Chronicity: acute Respiratory failure complication: hypoxia and hypercapnia BPH (benign prostatic hyperplasia) N40.0 (1) Respiratory failure Chronicity: acute Respiratory failure complication: hypoxia and hypercapnia Qualified Code(s): J96.01 - Acute respiratory failure with hypoxia; J96.02 - Acute respiratory failure with hypercapnia
--- NOTE | 2020-09-06 10:59 | Critical Care Consultation ---
Date of Consultation September 06, 2020 Assessment & Plan (1) Admitted to intensive care unit: Reason Critically Ill: Mr. Hernandez is an 85 yo M who was admitted after becoming unresponsive at home following a suspected aspiration event. Suspect aspiration event caused transient hypoxia and subsequent hypercapnia. He was intubated by EMS prior to hospital arrival and directly transferred to the ICU for ventilator management. He is maintaining goal MAPs without vasopressor support. Cat scan of the chest showed a dilated, food-filled esophagus. An OG tube was placed and connected to wall suction. Gastroenterology was consulted. Neuro: [facility] ICU: * Unresponsiveness - Head CT negative on admission - TSH 3.1. Na 139. Ca corrects to 8.6. BG 150s on admission. WBC normal, lactate normal. Ammonia level not checked. - history of likely aspiration event per report of family (see HPI). Suspect patient was transiently hypoxic from the aspiration --> hypercapnia - currently sedated on ventilator * Hx Alzheimer's Dementia - baseline per , knows name Cardiac: * Hx severe aortic stenosis - murmur appreciated on exam - last echo 07/2020 ([facility]) - monitor for volume overload * Hx hyperlipidemia - on atorvastatin at home; currently on hold while NPO - EKG: Sinus bradycardia, rate of 56, first degree AV block, nonspecific T-wave abnormalities, no acute ST changes seen. Respiratory: * VDRF - suspect secondary to aspiration event (see HPI) - CXR showing L basilar opacity - CT chest showing no PE, but multifocal ground glass opacities consist with aspiration event - Zosyn given in ED for anaerobic coverage; abx changed to Ertapenem GI: * Dysphagia - report of 2 weeks of dysphagia preceding admission. - no history of GI issues, never had EGD - A/P CT scan showed moderate constipation, otherwise unremarkable - Chest CT showing moderately dilated esophagus filled with debris. - OG tube placed and attached to suction - GI consulted, anticipate scope - continue Protonix 40mg, BID, IV RENAL/LYTES: - Cr 1.25, electrolytes normal - no issues : - nursing reported difficulty with Madrigal catheter placement - urology consulted and performed cystoscopy and placed madrigal over a guide wire ENDO: * Hx diabetes mellitus - not on any home anti-glycemic medications - high dose statin on hold while NPO - home MASOUD inhibitor on hold while NPO - ICU protocol for hypoglycemia HEME: * Normocytic anemia - Hgb 12.3, MCV 96 - trend CBC ID: - WBC normal, procal neg. Blood cultures pending. COVID neg Nasal MRSA neg. - patient is febrile at 37.6 - antibiotics added given history of aspiration event LINES/IV ACCESS: 3 PIVs, madrigal CODE STATUS: Full DVT PROPHYLAXIS: SCDs Thank you for allowing us to participate in the care of this patient. Please refer to my attending physician's documentation for any further recommendations. Supervising Physician Co-Signing Physician Notes Dr. Sarah Was the resident-physician during care of patient. I separately evaluated patient for sagastume portions of the history and the exam. I was present during the critical portion of medical decision making, and I discussed the case with the resident. I generally agree with the findings and plan except for any additions/exceptions noted. Patient seen and examined at bedside. Intubated. Sedated. The reason of patient's intubation was airway protection as the patient was unresponsive most likely from aspiration. His BNP 881, TSH 3.1. OSCAR Patient was hypercapnic on the ABG. Respiratory rate was increased. Patient most likely has aspiration pneumonia. Patient is allergic to penicillin. Continue with ertapenem. Patient does have significant dilatation of the esophagus. He has history of aspiration. We will try to see how the patient is doing later today. Trial of extubation will be done if mentally patient is responding. Patient has underlying dementia this will be playing a role especially during extubation trial. We will start the patient on Precedex when I plan to extubate. GI consultation has been made. Patient also has BPH and had difficulty passing the urinary catheter. Urology were consulted who put Madrigal catheter in and 600 mL of urine came out. I have personally spent 63 minutes of critical care time in the direct management of this patient. This is a life/limb threatening event. This includes time spent evaluating patient, direct bedside care, chart review, placing orders, interpretation of diagnostic studies, discussion with consultants, patient, and/or family members regarding treatment decisions, as we ll as other required patient management activities. This time is exclusive of all separately billable procedures, and teaching time and separate from and in addition to any other critical care service time. History of Present Illness Attending Physician: Lenny Aviles MD History of Present Illness Mr. Hernandez is an 85 yo M who was admitted overnight after he became unresponsive at home. For the preceding 2 weeks, Mr. Hernandez has struggled with dysphagia - his has reportedly performed the Heimlich maneuver on him several times. Last night while at him, his sister in law noticed he seemed to be choking (although he was apparently not eating at the time) and altered his . Mrs. Hernandez took him to bathroom, at which time he slumped over and became unresponsive. EMS was called, and on their arrival, Mr. Hernandez had a pulse but demonstrated agonal respirations. Vomitus was noted in the back of his throat, which was aspirated. He was intubated without difficulty by EMS prior to his arrival to the [facility] emergency department. His reports no prior GI history. He has never had an EGD. He was transferred to the ICU for ventilatory management. Allergies Allergy/AdvReac Type Severity Reaction Status Date / Time Penicillins Allergy Unknown UNKNOWN Verified 09/06/20 03:06 REACTION - HAPPENED A CHILD Home Medications Medication Instructions Recorded Confirmed Type amlodipine 5 mg PO DAILY 09/06/20 09/06/20 History aspirin [Children's Aspirin] 81 mg PO DAILY 09/06/20 09/06/20 History atorvastatin 40 mg PO DAILY 09/06/20 09/06/20 History cinnamon bark [Cinnamon] 500 mg PO DAILY 09/06/20 09/06/20 History folic acid 1 mg PO DAILY 09/06/20 09/06/20 History lisinopril 40 mg PO DAILY 09/06/20 09/06/20 History multivitamin 1 tab PO DAILY 09/06/20 09/06/20 History omega-3 fatty acids 1,000 mg PO DAILY 09/06/20 09/06/20 History Patient History Social History Smoking Status: Unknown if ever smoked Hx Alcohol Use: No Hx Substance Use: No Preferred Language: Bruneian Communication Ability: Unable 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 Beliefs That Will Affect Care: None Current Living Situation: Spouse Other Information That Helps Us Care for You: No Feels Safe at Home: Yes Safety Concerns: Feels Safe At This Time Assistive Devices: Oxygen - Continuous Review of Systems Review of Systems: Unobtainable due to endotracheal tube Physical Exam Constitutional: well developed, well nourished and + mechanically ventilated Eyes: + anicteric sclerae ENMT: external ear and nose normal, oropharynx normal Neck: normal visual inspection Respiratory: Auscultation: + rhonchi Cardiovascular: Rate/Rhythm: regular rate and regular rhythm Heart Sounds: normal S1, normal S2 and + murmur (systolic ejection ) Gastrointestinal (Abdomen): normal bowel sounds, soft, nontender, no hepatosplenomegaly Skin: no rashes, warm and dry Genitourinary: Madrigal catheter in place, draining yellow urine without visible blood clots Results & Data Results & Data ([facility]) Vital Signs (Past 12 Hours) Vital Signs Temp Pulse Pulse Resp BP BP Pulse Ox 09/06/20 10:00 62 128/54 L 100 09/06/20 09:00 36.7 C 57 L 125/52 L 100 09/06/20 08:00 57 L 121/51 L 100 09/06/20 07:53 56 L 136/54 L 100 09/06/20 07:45 59 L 21 152/55 H 98 09/06/20 07:00 36.4 C L 52 L 97/48 L 100 09/06/20 06:46 53 L 98/49 L 100 09/06/20 06:38 36.3 C L 54 L 100/51 L 100 09/06/20 06:20 36.3 C L 54 L 20 100/51 L 100 09/06/20 06:00 18 100 09/06/20 05:50 34.9 C L 53 L 19 131/84 100 09/06/20 05:40 47 L 14 119/54 L 99 09/06/20 05:31 48 L 24 100 09/06/20 05:30 47 L 21 124/57 L 100 09/06/20 05:20 47 L 13 139/57 L 100 09/06/20 05:10 48 L 12 144/65 H 100 09/06/20 05:00 48 L 13 151/62 H 100 09/06/20 04:50 67 17 169/78 H 100 09/06/20 04:40 50 L 12 185/76 H 99 09/06/20 04:30 50 L 15 187/72 H 100 09/06/20 04:20 70 14 180/80 H 100 09/06/20 04:11 52 L 12 183/68 H 100 09/06/20 04:01 50 L 14 176/63 H 100 09/06/20 03:52 53 L 19 97 09/06/20 03:51 52 L 17 189/175 H 100 09/06/20 03:45 50 L 13 161/61 H 100 09/06/20 03:10 53 L 113/50 L 97 09/06/20 03:01 52 L 111/76 100 09/06/20 02:52 53 L 132/55 L 98 09/06/20 02:50 55 L 20 132/55 L 98 Resident Activity Tracking Resident Involvement: Resident Care Provided Care Provided: Adult Hospital Medicine
[2020-09-06 11:00] LABS: Appearance Urine Clear (Clear); Bacteria Urine Automated Negative (Negative); Bilirubin Urine Negative (Negative); Blood Urine 3+ (Negative); Color Urine Yellow; Glucose Urine UA Negative (Negative); Ketones Urine Negative (Negative); Leukocyte Esterase Urine Negative (Negative); Nitrite Urine Negative (Negative); Protein Urine Negative (Negative); RBC Urine Automated >30 /hpf (0-4); Specific Gravity Urine 1.039 (1.000-1.030); Urobilinogen Urine Negative (Negative)
--- NOTE | 2020-09-06 11:28 | Gastrointestinal Consultation ---
Date of Consultation September 06, 2020 History of Present Illness Attending Physician: Lenny Aviles MD Reason for consult: aspiration, dysphagia, abnl CT Source: History obtained from chart review; pt intubated HPI: 85 yo M with PMH sig for Alzheimer's dementia capable of inependent ADL's with recent history of occasional dysphagia. Per chart, pt ate dinner without difficulty, then woke last night indicating that he might be choking. He then had syncope while vomiting. He was intubated in the field by EMS for respiratory difficulty, and was noted to have vomitus in the back of his throat. He underwent chest CT which showed dilated, food filled esophagus. At present, he remains on mechanical ventilation. PE: intubated,sedated CV: RRR Resp: Coarse BS throughout Abd: soft, NT A/P: Aspiration pneumonia - The description of the patient completing his dinner, then going to sleep comfortably and waking several hours later suggests that aspiration that has resulted from an esohagus that may have some reservoir capacity; an esopahgeal food impaction seems less likely. Plan eventual EGD, NGT in the interim. Allergies Allergy/AdvReac Type Severity Reaction Status Date / Time Penicillins Allergy Unknown UNKNOWN Verified 09/06/20 03:06 REACTION - HAPPENED A CHILD Home Medications Medication Instructions Recorded Confirmed Type amlodipine 5 mg PO DAILY 09/06/20 09/06/20 History aspirin [Children's Aspirin] 81 mg PO DAILY 09/06/20 09/06/20 History atorvastatin 40 mg PO DAILY 09/06/20 09/06/20 History cinnamon bark [Cinnamon] 500 mg PO DAILY 09/06/20 09/06/20 History folic acid 1 mg PO DAILY 09/06/20 09/06/20 History lisinopril 40 mg PO DAILY 09/06/20 09/06/20 History multivitamin 1 tab PO DAILY 09/06/20 09/06/20 History omega-3 fatty acids 1,000 mg PO DAILY 09/06/20 09/06/20 History Patient History Social History Smoking Status: Unknown if ever smoked Hx Alcohol Use: No Hx Substance Use: No Preferred Language: Welsh Communication Ability: Unable Microsoft 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 Beliefs That Will Affect Care: None Current Living Situation: Spouse Other Information That Helps Us Care for You: No Feels Safe at Home: Yes Safety Concerns: Feels Safe At This Time Assistive Devices: Oxygen - Continuous Results & Data ([facility]) Vital Signs (Past 12 Hours) Vital Signs Temp Pulse Pulse Resp BP BP Pulse Ox 09/06/20 10:48 63 20 99 09/06/20 10:00 62 128/54 L 100 09/06/20 09:00 36.7 C 57 L 125/52 L 100 09/06/20 08:00 57 L 121/51 L 100 09/06/20 07:53 56 L 136/54 L 100 09/06/20 07:45 59 L 21 152/55 H 98 09/06/20 07:00 36.4 C L 52 L 97/48 L 100 09/06/20 06:46 53 L 98/49 L 100 09/06/20 06:38 36.3 C L 54 L 100/51 L 100 09/06/20 06:20 36.3 C L 54 L 20 100/51 L 100 09/06/20 06:00 18 100 09/06/20 05:50 34.9 C L 53 L 19 131/84 100 09/06/20 05:40 47 L 14 119/54 L 99 09/06/20 05:31 48 L 24 100 09/06/20 05:30 47 L 21 124/57 L 100 09/06/20 05:20 47 L 13 139/57 L 100 09/06/20 05:10 48 L 12 144/65 H 100 09/06/20 05:00 48 L 13 151/62 H 100 09/06/20 04:50 67 17 169/78 H 100 09/06/20 04:40 50 L 12 185/76 H 99 09/06/20 04:30 50 L 15 187/72 H 100 09/06/20 04:20 70 14 180/80 H 100 09/06/20 04:11 52 L 12 183/68 H 100 09/06/20 04:01 50 L 14 176/63 H 100 09/06/20 03:52 53 L 19 97 09/06/20 03:51 52 L 17 189/175 H 100 09/06/20 03:45 50 L 13 161/61 H 100 09/06/20 03:10 53 L 113/50 L 97 09/06/20 03:01 52 L 111/76 100 09/06/20 02:52 53 L 132/55 L 98 09/06/20 02:50 55 L 20 132/55 L 98
[2020-09-06] MEDS ORDERED: DEXMEDETOMIDINE HCL 200 MCG in SODIUM CHLORIDE 0.9% 48 ML IV SCH (12:15)
--- NOTE | 2020-09-06 12:31 | Hospitalist Progress Note ---
Date of Service September 06, 2020 Assessment & Plan (1) Aspiration into airway: Unresponsiveness at home likely due to aspiration -as per ED notes "This is an 85-year-old male brought in from home via EMS due to a sudden change in mental status leading to unresponsiveness witnessed by the . The reported to EMS he had been having difficulty swallowing for 3 days, this evening suddenly appeared to be choking or gagging and then went unresponsive in front of her. She noted he did not appear to be breathing so she started doing CPR and called 911. On EMS arrival patient had a pulse and was hypertensive although had agonal respirations. They inserted an OPA without difficulty and began bagging the patient. denies any prior GI history. Stated he does have a history of dementia but has been fairly active and independent otherwise. No recent illness or change in medications. They did call for medical command for orders for etomidate in order to secure the patient's airway as even with bagging and improving oxygenation he continued to be unresponsive. Patient was intubated by EMS prior to arrival with a 7.5 ET tube. EMS did note that while they had a clear visualization of the airway there appeared to be emesis in the posterior oropharynx that required suc tioning. No blood was noted. No other evidence of airway edema or foreign body. Patient given Versed 7.5 mg and fentanyl 150 mcg post intubation for sedation in route. There was additional emesis that required in line suctioning. Patient's blood pressure was improved upon arrival here, patient being bagged easily, and was still unresponsive." -admission CTA: No pulmonary emboli identified, Multifocal groundglass opacities within the lungs which favor an infectious process or sequela of aspiration, Moderately distended debris-filled esophagus. -he was given initially Zosyn and Ertapenem, will defer to ICU physician on further antibiotic adjustments -management of mechanical ventilation and extubation plans as per ICU physician (2) Alzheimer's dementia: History of Alzheimer's dementia (3) BPH (benign prostatic hyperplasia): -madrigal placed by urology service on 09/06/2020 while under ICU level of care (4) Aortic stenosis: -history of severe aortic stenosis, last echo 07/2020 ([facility]) History of Hypertension -management of blood pressures off oral medications at this time Type 2 diabetes mellitus -on ICU protocol for glucose management Full Code Status on admission Admission and Anticipated Discharge Date Admission Date: September 06, 2020 Subjective Patient seen and examined the ICU. Review of systems cannot be performed because patient is sedated and he remains on mechanical ventilator. ICU nurse reported difficulties with madrigal placement but madrigal is in place. Review of Systems Review of Systems: Unobtainable due to cognitive status Physical Exam Eyes: pupils minimally responsive to light Neck: normal visual inspection Respiratory: on mechanical ventilation, intubated Cardiovascular: Rate/Rhythm: + bradycardic Gastrointestinal (Abdomen): normal bowel sounds, soft, nontender, no hepatos plenomegaly Musculoskeletal: Head/Neck/Chest: normocephalic and head atraumatic Neurologic: sedated Genitourinary: madrigal Results & Data Results & Data ([facility]) Vital Signs (Past 12 Hours) Vital Signs Temp Pulse Pulse Resp BP BP Pulse Ox 09/06/20 10:48 63 20 99 09/06/20 10:00 62 128/54 L 100 09/06/20 09:00 36.7 C 57 L 125/52 L 100 09/06/20 08:00 57 L 121/51 L 100 09/06/20 07:53 56 L 136/54 L 100 09/06/20 07:45 59 L 21 152/55 H 98 09/06/20 07:00 36.4 C L 52 L 97/48 L 100 09/06/20 06:46 53 L 98/49 L 100 09/06/20 06:38 36.3 C L 54 L 100/51 L 100 09/06/20 06:20 36.3 C L 54 L 20 100/51 L 100 09/06/20 06:00 18 100 09/06/20 05:50 34.9 C L 53 L 19 131/84 100 09/06/20 05:40 47 L 14 119/54 L 99 09/06/20 05:31 48 L 24 100 09/06/20 05:30 47 L 21 124/57 L 100 09/06/20 05:20 47 L 13 139/57 L 100 09/06/20 05:10 48 L 12 144/65 H 100 09/06/20 05:00 48 L 13 151/62 H 100 09/06/20 04:50 67 17 169/78 H 100 09/06/20 04:40 50 L 12 185/76 H 99 09/06/20 04:30 50 L 15 187/72 H 100 09/06/20 04:20 70 14 180/80 H 100 09/06/20 04:11 52 L 12 183/68 H 100 09/06/20 04:01 50 L 14 176/63 H 100 09/06/20 03:52 53 L 19 97 09/06/20 03:51 52 L 17 189/175 H 100 09/06/20 03:45 50 L 13 161/61 H 100 09/06/20 03:10 53 L 113/50 L 97 09/06/20 03:01 52 L 111/76 100 09/06/20 02:52 53 L 132/55 L 98 09/06/20 02:50 55 L 20 132/55 L 98 (1) Aspiration into airway Encounter type: initial encounter Qualified Code(s): T17.908A - Unspecified foreign body in respiratory tract, part unspecified causing other injury, initial encounter
--- NOTE | 2020-09-06 13:36 | Electrocardiogram Report ---
Test Reason : Blood Pressure : / mmHG Vent. Rate : 056 BPM Atrial Rate : 056 BPM P-R Int : 232 ms QRS Dur : 094 ms QT Int : 480 ms P-R-T Axes : 079 012 056 degrees QTc Int : 463 ms Sinus bradycardia with 1st degree A-V block Otherwise normal ECG When compared with ECG of 13-DEC-2010 08:21, TX interval has increased Nonspecific T wave abnormality has replaced inverted T waves in Lateral leads Confirmed by Fermín Brenner ([id number]) on 09/06/2020 1:36:00 PM Referred By: REFERRED SELF Confirmed By:Fermín Brenner
[2020-09-06] MEDS: DEXMEDETOMIDINE HCL 200 MCG in SODIUM CHLORIDE 0.9% 48 ML IV SCH ×3 (15:44→21:26)
[2020-09-06] MEDS ORDERED: Nursing to Pharmacy Communication SCH (15:45)
--- NOTE | 2020-09-06 18:20 | Billing Data ---
Date of Service September 06, 2020 Coding Level of Care Code Critical Care 1st 30-74 mins Time Spent (min) 63
--- NOTE | 2020-09-06 19:53 | Communication Note ---
Date of Service: September 06, [id number] - Attempted to contact patient's , My ([phone]). No answer. Left message to return call. Will provide update at that time and discuss code status as well. 1954 - Started with dysphagia ~1wk ago. Hasn't been wearing his teeth. Patient has been choking on meals. She reports that they do have a living will and reports that they would not want a live in a vegetative state, however she would wish to undergo heroic measures initially. We will keep CODE STATUS is full code at this point. Coding Level of Care Code None
[2020-09-07] MEDS: DEXMEDETOMIDINE HCL 200 MCG in SODIUM CHLORIDE 0.9% 48 ML IV SCH ×3 (03:46→19:59)
[2020-09-07] MEDS: SODIUM CHLORIDE 0.9% 1000ML 1,000 ML IV SCH (03:46)
[2020-09-07 05:29] LABS: Basophils # (auto) 0.03 K/uL (0-0.2); Basophils % (auto) 0.2 %; Eosinophils # (auto) 0.12 K/uL (0-0.5); Eosinophils % (auto) 0.8 %; Hematocrit (blood only) 36.6 % (42-52); Hemoglobin 11.7 g/dL (14.0-18.0); Immature Granulocytes # (auto) 0.03 K/uL (0.00-0.02); Immature Granulocytes % (auto) 0.2 %; Lymphocytes # (auto) 1.65 K/uL (1.2-3.4); Lymphocytes % (auto) 11.1 %; Mean Corpuscular Volume 97.1 fL (80-100); Mean Platelet Volume 10.5 fL (7.4-10.4); Monocytes # (auto) 1.12 K/uL (0.11-0.59); Monocytes % (auto) 7.5 %; Neutrophils # (auto) 11.92 K/uL (1.4-6.5); Neutrophils % (auto) 80.2 %; Platelet Count 147 K/uL (130-400); RDW Coefficient of Variation 13.3 % (11.5-14.5); RDW Standard Deviation 47.1 fL (36.4-46.3); Red Blood Count 3.77 M/uL (4.7-6.1); White Blood Count 14.87 K/uL (4.8-10.8)
[2020-09-07 05:53] LABS: BUN Creatinine Ratio 24.6 (10-20); Calcium 7.9 mg/dl (8.5-10.1); Est GFR (African American) 76.4; Est GFR (Non-African American) 65.9; Magnesium 2.3 mg/dl (1.8-2.4); Phosphorus 3.5 mg/dl (2.5-4.9); Potassium 4.1 mmol/L (3.5-5.1)
--- NOTE | 2020-09-07 07:58 | Hospitalist Progress Note ---
Date of Service September 07, 2020 Assessment & Plan (1) Aspiration into airway: Unresponsiveness at home likely due to aspiration -as per ED notes "This is an 85-year-old male brought in from home via EMS due to a sudden change in mental status leading to unresponsiveness witnessed by the . The reported to EMS he had been having difficulty swallowing for 3 days, this evening suddenly appeared to be choking or gagging and then went unresponsive in front of her. She noted he did not appear to be breathing so she started doing CPR and called 911. On EMS arrival patient had a pulse and was hypertensive although had agonal respirations. They inserted an OPA without difficulty and began bagging the patient. denies any prior GI history. Stated he does have a history of dementia but has been fairly active and independent otherwise. No recent illness or change in medications. They did call for medical command for orders for etomidate in order to secure the patient's airway as even with bagging and improving oxygenation he continued to be unresponsive. Patient was intubated by EMS prior to arrival with a 7.5 ET tube. EMS did note that while they had a clear visualization of the airway there appeared to be emesis in the posterior oropharynx that required suc tioning. No blood was noted. No other evidence of airway edema or foreign body. Patient given Versed 7.5 mg and fentanyl 150 mcg post intubation for sedation in route. There was additional emesis that required in line suctioning. Patient's blood pressure was improved upon arrival here, patient being bagged easily, and was still unresponsive." -admission CTA: No pulmonary emboli identified, Multifocal groundglass opacities within the lungs which favor an infectious process or sequela of aspiration, Moderately distended debris-filled esophagus. -he was given initially Zosyn and Ertapenem, currently on Ertapenem alone since the day time of 09/06/2020 -Patient was extubated on 09/06/2020 -currently on nasal cannula oxygen Dysphagia -09/07/2020 ICU physician expressed concerns of overall prognosis of the patient despite recent extubation because of history of dysphagia. will await further gastroenterology evaluation. (2) Alzheimer's dementia: History of Alzheimer's dementia (3) BPH (benign prostatic hyperplasia): -madrigal placed by urology service on 09/06/2020 while under ICU level of care (4) Aortic stenosis: -history of severe aortic stenosis, last echo 07/2020 ([facility]) -likely is the reason for audible heart murmur on asucultation History of Hypertension -management of blood pressures off oral medications at this time Type 2 diabetes mellitus -on ICU protocol for glucose management Full Code Status on admission Admission and Anticipated Discharge Date Admission Date: September 06, 2020 Subjective Patient on nasal cannula while under ICU level of care. He is alert and hospitalist can carry extended conversation with the patient who denies acute pain and currently he does not feel acutely dyspneic. Patient is able to affirm that he lives with his family and his hometown. He was recounted the hospital course to date to orient him further. Patient denies of feeling any acute pain or any symptoms on review of systems. Review of Systems Review of Systems: All systems reviewed & are unremarkable except as noted in Subjective Physical Exam Constitutional: cooperative and comfortable Eyes: PERRL, conjunctivae normal, anicteric sclerae EOM intact bilaterally ENMT: external ear and nose normal, oropharynx normal Neck: normal visual inspection Respiratory: normal respiratory effort Cardiovascular: Rate/Rhythm: + bradycardic Heart Sounds: + murmur Gastrointestinal (Abdomen): normal bowel sounds, soft, nontender, no hepatosplenomegaly Musculoskeletal: Head/Neck/Chest: normocephalic and head atraumatic Neurologic: awake Psychiatric: Orientation: alert Results & Data Results & Data ([facility]) Vital Signs (Past 12 Hours) Vital Signs Temp Pulse Resp BP Pulse Ox 09/07/20 06:06 44 L 14 138/55 L 100 09/07/20 05:10 100 09/07/20 05:06 45 L 18 130/54 L 100 09/07/20 04:00 36.6 C 09/07/20 03:43 44 L 24 99 09/07/20 03:39 43 L 22 132/54 L 100 09/07/20 03:09 45 L 16 132/55 L 100 09/07/20 02:39 44 L 18 133/51 L 100 09/07/20 02:09 44 L 16 127/52 L 100 09/07/20 01:39 44 L 18 127/51 L 100 09/07/20 01:09 50 L 21 127/51 L 100 09/07/20 00:39 45 L 20 120/51 L 100 09/07/20 00:09 45 L 16 118/49 L 100 09/07/20 00:00 36.4 C L 09/06/20 23:54 44 L 22 120/50 L 99 09/06/20 23:39 45 L 20 115/49 L 99 09/06/20 23:12 45 L 24 99 09/06/20 23:09 46 L 18 112/48 L 98 09/06/20 22:39 45 L 18 107/48 L 98 09/06/20 22:09 46 L 21 111/46 L 98 09/06/20 21:38 48 L 18 113/50 L 98 09/06/20 21:08 48 L 20 112/48 L 98 09/06/20 20:38 49 L 22 104/45 L 98 09/06/20 20:17 79 22 97 09/06/20 20:08 36.5 C 49 L 20 103/44 L 96 09/06/20 20:00 50 L (1) Aspiration into airway Encounter type: initial encounter Qualified Code(s): T17.908A - Unspecified foreign body in respiratory tract, part unspecified causing other injury, initial encounter
[2020-09-07] MEDS: INSULIN ASPART 100 UNITS/ML 3 ML PEN SC SCH ×4 (08:23→21:16)
[2020-09-07] MEDS: ERTAPENEM SODIUM 1,000 MG in SODIUM CHLORIDE 0.9% 50 ML IV SCH (08:30)
[2020-09-07] MEDS ORDERED: ENOXAPARIN INJ 40 MG/0.4 ML SYR SQ SCH (09:00)
[2020-09-07] MEDS: PANTOprazole 40 MG in SYRINGE 0 ML IV SCH (10:37)
--- NOTE | 2020-09-07 12:33 | Critical Care Progress Note ---
Date of Service September 07, 2020 Assessment & Plan (1) Aortic stenosis: --S/p VDRF The reason of intubation was unresponsiveness likely from aspiration Patient was successfully extubated 09/06/2020 Continue with BiPAP nightly and as needed shortness of breath Continue with aspiration precautions --Alzheimer's dementia Patient is oriented to only self He has been asking to go home. May require one-to-one sitter if there is any worsening of mental status --Aspiration pneumonia Patient has questionable history to penicillin Currently on ertapenem Can de-escalate antibiotics in the next 24 hours Procalcitonin negative, COVID-19 - 09/06/2020 --Esophageal dilatation With history of dysphagia GI has been consulted --BPH Patient had difficulty getting Lara catheter in Urology were consulted and Lara was placed on 09/06/2020 Discontinue Lara in the next 24-48 hours --Prophylaxis VTE: Lovenox GI: Protonix Lines: Peripheral Diet: N.p.o. Plan: In/out +2.3 L, urine output 1621 DC IV fluids If the patient gets hypoxic will give a dose of Lasix. Patient's mental status will be an issue. Patient is on Precedex as needed. He has not been on it since the morning. We will try to discontinue Precedex totally. Patient might need 1 is to 1 sitter. QTC is 463. If there is agitation Seroquel 25 mg for haloperidol 2.5 mg could be considered. Patient is hemodynamically stable to be sent to a medical floor. Continue monitoring for aspiration precautions. Please note the above document was generated using voice recognition software. It may contain grammatical, syntax or spelling errors.Any formal questions or concerns about the content, text or information contained within the body of this dictation should be directly addressed to the provider for clarification. (2) Alzheimer's dementia: (3) BPH (benign prostatic hyperplasia): (4) Respiratory failure: (5) Bradycardia: Admission and Anticipated Discharge Date Admission Date: September 06, 2020 Subjective Patient seen and examined at bedside. No acute distress, no adverse events overnight. Patient was extubated 09/06/2020. He did pretty well on BiPAP overnight. He does have bouts of restlessness and agitation this is most likely from his underlying dementia. He is wanting to go home. Afebrile. Denies any headache, no chest pain, no headache, no nausea, no vomiting. Review of Systems Review of Systems: All systems reviewed & are unremarkable except as noted in Subjective Physical Exam Physical Exam: Constitutional: No acute distress HEENT: EOMI, PERRLA, arcus senilis bilaterally Respiratory system: Decreased air entry bilaterally, positive crackles bilateral lower lobes, no wheeze, no rhonchi CVS: S1-S2 positive, positive 3 out of 6 systolic murmur appreciated best at the aorta Abdomen: Soft, nontender, nondistended, positive bowel sounds x4 Extremities: +2 pulses bilaterally radialis/ dorsalis pedis, no cyanosis, no edema Neuro: Awake alert oriented to self Psych: Normal mood and affect G/U: Positive Lara Skin: no rashes, warm and dry Lymphatic: no cervical or axillary lymphadenopathy Results & Data Results & Data ([facility]) Vital Signs (Past 12 Hours) Vital Signs Temp Pulse Resp BP Pulse Ox 09/07/20 09:07 49 L 3 L 141/60 H 96 09/07/20 09:00 50 L 12 96 09/07/20 08:06 44 L 16 137/58 L 96 09/07/20 08:00 36.7 C 43 L 11 L 96 09/07/20 07:06 43 L 16 136/56 L 100 09/07/20 07:00 43 L 12 100 09/07/20 06:07 49 L 11 L 100 09/07/20 06:06 44 L 14 138/55 L 100 09/07/20 05:10 100 09/07/20 05:06 45 L 18 130/54 L 100 09/07/20 04:00 36.6 C 09/07/20 03:43 44 L 24 99 09/07/20 03:39 43 L 22 132/54 L 100 09/07/20 03:09 45 L 16 132/55 L 100 09/07/20 02:39 44 L 18 133/51 L 100 09/07/20 02:09 44 L 16 127/52 L 100 09/07/20 01:39 44 L 18 127/51 L 100 09/07/20 01:09 50 L 21 127/51 L 100 09/07/20 00:39 45 L 20 120/51 L 100 09/07/20 04:59 09/07/20 04:59 Coding Level of Care Code 45538 Subseq Hosp Care Lvl 3 Diagnoses Aortic stenosis I35.0 Alzheimer's dementia G30.9; F02.80 BPH (benign prostatic hyperplasia) N40.0 Respiratory failure J96.01; J96.02 Chronicity: acute Respiratory failure complication: hypoxia and hypercapnia Bradycardia R00.1 (1) Respiratory failure Chronicity: acute Respiratory failure complication: hypoxia and hypercapnia Qualified Code(s): J96.01 - Acute respiratory failure with hypoxia; J96.02 - Acute respiratory failure with hypercapnia
[2020-09-07] MEDS ORDERED: HALOPERIDOL LACTATE 5 MG/ML 1 ML VIAL IV PRN (13:00)
--- NOTE | 2020-09-07 15:56 | Gastroenterology Progress Note ---
Date of Service September 07, 2020 Assessment & Plan Admission and Anticipated Discharge Date Admission Date: September 06, 2020 Subjective Events noted. Pt extubated, remains NPO. Will request speech eval and then esophagram. Results & Data ([facility]) Vital Signs (Past 12 Hours) Vital Signs Temp Pulse Resp BP Pulse Ox 09/07/20 15:00 75 09/07/20 14:06 67 133/73 93 09/07/20 14:00 61 94 09/07/20 13:07 51 L 98 09/07/20 13:06 50 L 143/55 H 98 09/07/20 13:00 50 L 97 09/07/20 12:07 59 L 16 144/55 H 09/07/20 12:00 65 29 H 09/07/20 11:06 50 L 13 153/58 H 97 09/07/20 11:00 49 L 14 95 09/07/20 10:06 52 L 18 151/65 H 98 09/07/20 10:00 53 L 23 98 09/07/20 09:08 52 L 5 L 96 09/07/20 09:07 49 L 3 L 141/60 H 96 09/07/20 09:00 50 L 12 96 09/07/20 08:06 44 L 16 137/58 L 96 09/07/20 08:00 36.7 C 43 L 11 L 96 09/07/20 07:06 43 L 16 136/56 L 100 09/07/20 07:00 43 L 12 100 09/07/20 06:07 49 L 11 L 100 09/07/20 06:06 44 L 14 138/55 L 100 09/07/20 05:10 100 09/07/20 05:06 45 L 18 130/54 L 100 09/07/20 04:00 36.6 C
[2020-09-07] MEDS ORDERED: ACETAMINOPHEN 1,000 MG/100 ML VIAL IV PRN (17:31)
[2020-09-08] MEDS ORDERED: Nursing to Pharmacy Communication SCH ×2 (02:30→19:00)
[2020-09-08] MEDS ORDERED: hydrALAZINE HCL 20 MG/ML VIAL IV ONE (04:42)
[2020-09-08 06:07] LABS: Estimated Average Glucose 114 mg/dl; Hemoglobin A1C 5.6 % (4.5-5.6)
[2020-09-08] MEDS: INSULIN ASPART 100 UNITS/ML 3 ML PEN SC SCH ×4 (06:15→21:25)
[2020-09-08 06:51] LABS: Basophils # (auto) 0.03 K/uL (0-0.2); Basophils % (auto) 0.2 %; Eosinophils # (auto) 0.02 K/uL (0-0.5); Eosinophils % (auto) 0.1 %; Hematocrit (blood only) 39.6 % (42-52); Hemoglobin 13.3 g/dL (14.0-18.0); Immature Granulocytes # (auto) 0.02 K/uL (0.00-0.02); Immature Granulocytes % (auto) 0.1 %; Lymphocytes # (auto) 1.22 K/uL (1.2-3.4); Lymphocytes % (auto) 8.5 %; Mean Corpuscular Hemoglobin 31.8 pg (25-34); Mean Corpuscular Hgb Conc 33.6 g/dL (32-36); Mean Corpuscular Volume 94.7 fL (80-100); Mean Platelet Volume 10.4 fL (7.4-10.4); Monocytes # (auto) 1.28 K/uL (0.11-0.59); Monocytes % (auto) 8.9 %; Neutrophils # (auto) 11.81 K/uL (1.4-6.5); Neutrophils % (auto) 82.2 %; Platelet Count 204 K/uL (130-400); RDW Standard Deviation 44.9 fL (36.4-46.3); Red Blood Count 4.18 M/uL (4.7-6.1); White Blood Count 14.38 K/uL (4.8-10.8)
[2020-09-08] MEDS ORDERED: D5W AND 1/2NSS 1,000 ML IV SCH (07:15)
[2020-09-08 07:19] LABS: Albumin Level 2.9 gm/dl (3.4-5.0); BUN Creatinine Ratio 21.5 (10-20); Calcium 8.5 mg/dl (8.5-10.1); Est GFR (African American) 78.2; Est GFR (Non-African American) 67.5; Magnesium 2.1 mg/dl (1.8-2.4); Potassium 3.5 mmol/L (3.5-5.1)
[2020-09-08 07:23] LABS: Albumin Globulin Ratio 0.8 (0.9-2); Globulin 3.8 gm/dl (2.5-4.0); Phosphorus 2.7 mg/dl (2.5-4.9); Total Protein 6.7 gm/dl (6.4-8.2)
[2020-09-08] MEDS: ERTAPENEM SODIUM 1,000 MG in SODIUM CHLORIDE 0.9% 50 ML IV SCH (07:53)
[2020-09-08] MEDS: PANTOprazole 40 MG in SYRINGE 0 ML IV SCH (09:03)
--- NOTE | 2020-09-08 09:49 | Hospitalist Progress Note ---
Date of Service September 08, 2020 Assessment & Plan (1) Aspiration into airway: Unresponsiveness at home likely due to aspiration -as per ED notes "This is an 85-year-old male brought in from home via EMS due to a sudden change in mental status leading to unresponsiveness witnessed by the . The reported to EMS he had been having difficulty swallowing for 3 days, this evening suddenly appeared to be choking or gagging and then went unresponsive in front of her. She noted he did not appear to be breathing so she started doing CPR and called 911. On EMS arrival patient had a pulse and was hypertensive although had agonal respirations. They inserted an OPA without difficulty and began bagging the patient. denies any prior GI history. Stated he does have a history of dementia but has been fairly active and independent otherwise. No recent illness or change in medications. They did call for medical command for orders for etomidate in order to secure the patient's airway as even with bagging and improving oxygenation he continued to be unresponsive. Patient was intubated by EMS prior to arrival with a 7.5 ET tube. EMS did note that while they had a clear visualization of the airway there appeared to be emesis in the posterior oropharynx that required suc tioning. No blood was noted. No other evidence of airway edema or foreign body. Patient given Versed 7.5 mg and fentanyl 150 mcg post intubation for sedation in route. There was additional emesis that required in line suctioning. Patient's blood pressure was improved upon arrival here, patient being bagged easily, and was still unresponsive." -admission CTA: No pulmonary emboli identified, Multifocal groundglass opacities within the lungs which favor an infectious process or sequela of aspiration, Moderately distended debris-filled esophagus. -he was given initially Zosyn and Ertapenem, currently on Ertapenem alone since the day time of 09/06/2020 -Patient was extubated on 09/06/2020 -currently on room air oxygen Dysphagia -09/07/2020 ICU physician expressed concerns of overall prognosis of the patient despite recent extubation because of history of dysphagia. -currently on IV fluids with dextrose and is NPO. will await further speech and swallow evaluation (2) Alzheimer's dementia: History of Alzheimer's dementia -currently with chief nursing executive staff to reorient him as needed (3) BPH (benign prostatic hyperplasia): -madrigal placed by urology service on 09/06/2020 while under ICU level of care (4) Aortic stenosis: -history of severe aortic stenosis, last echo 07/2020 (amaer) -likely is the reason for audible heart murmur on auscultation History of Hypertension -management of blood pressures off oral medications at this time. currently there is IV hydralazine prn Type 2 diabetes mellitus -monitor blood sugars. sliding scale insulin as needed Full Code Status on admission Admission and Anticipated Discharge Date Admission Date: September 06, 2020 Subjective -currently on IV fluids with dextrose and is NPO. will await further speech and swallow evaluation. currently with chief nursing executive staff to reorient him as needed. patient is breathing on room air. no acute distress. patient denies being in acute pain. he was explained the hospital plans. patient denies other symptoms when asked on review of systems Review of Systems Review of Systems: All systems reviewed & are unremarkable except as noted in Subjective Physical Exam Constitutional: cooperative and comfortable Eyes: PERRL, conjunctivae normal, anicteric sclerae EOM intact bilaterally ENMT: external ear and nose normal, oropharynx normal Neck: normal visual inspection Respiratory: normal respiratory effort Cardiovascular: Rate/Rhythm: regular rate and regular rhythm Heart Sounds: + murmur Gastrointestinal (Abdomen): normal bowel sounds, soft, nontender, no hepatosplenomegaly Musculoskeletal: Head/Neck/Chest: normocephalic and head atraumatic Neurologic: awake Psychiatric: Orientation: alert Results & Data Results & Data ([facility]) Vital Signs (Past 12 Hours) Vital Signs Temp Pulse Pulse Pulse Resp BP BP 09/08/20 07:34 37.1 C 74 20 09/08/20 07:00 80 09/08/20 05:30 170/65 H 09/08/20 04:37 178/81 H 09/08/20 03:15 36.8 C 73 18 180/72 H 09/08/20 01:00 36.6 C 09/07/20 23:06 77 136/82 09/07/20 22:06 82 161/68 H BP Pulse Ox 09/08/20 07:34 172/61 H 100 09/08/20 07:00 09/08/20 05:30 09/08/20 04:37 09/08/20 03:15 194/72 H 95 09/08/20 01:00 09/07/20 23:06 95 09/07/20 22:06 94 (1) Aspiration into airway Encounter type: initial encounter Qualified Code(s): T17.908A - Unspecified foreign body in respiratory tract, part unspecified causing other injury, initial encounter
--- NOTE | 2020-09-08 10:22 | Gastroenterology Progress Note ---
Date of Service September 08, 2020 Assessment & Plan (1) Aspiration into airway: 75 year old male with Alzheimer, report of dysphagia admitted w/ aspiration PNA, to undergo [employer] evaluation. Of note, 50 second run of SVT now undergoing cardiac work up. Pending results of cardiac testing and [employer] evaluation, GI to consider PEG tube placement. Will follow peripherally. Thank you for allowing us to participate in the care of this patient. Please call with any acute changes, questions or concerns. Please see addendum below with additional recommendation from my supervising physician. Attg add: I interviewed and examined pt, reviewed chart and labs. Pt without new complaint. Await results of [employer] eval. Admission and Anticipated Discharge Date Admission Date: September 06, 2020 Subjective Yet to have formal eval from [employer] Denies acute concerns this AM Per chart review, 50 second run of SVT. This was after my time of evaluation Underdoing cardiac workup Review of Systems Constitutional: no fever Respiratory: no cough and no dyspnea Cardiovascular: no chest pain and no dyspnea Physical Exam Constitutional: no acute distress Neck: trachea midline Skin: no rashes, warm and dry Results & Data ([facility]) Vital Signs (Past 12 Hours) Vital Signs Temp Pulse Pulse Pulse Resp BP BP 09/08/20 09:55 36.8 C 71 14 172/68 H 09/08/20 07:34 37.1 C 74 20 09/08/20 07:00 80 09/08/20 05:30 170/65 H 09/08/20 04:37 178/81 H 09/08/20 03:15 36.8 C 73 18 180/72 H 09/08/20 01:00 36.6 C 09/07/20 23:06 77 136/82 BP Pulse Ox 09/08/20 09:55 98 09/08/20 07:34 172/61 H 100 09/08/20 07:00 09/08/20 05:30 09/08/20 04:37 09/08/20 03:15 194/72 H 95 09/08/20 01:00 09/07/20 23:06 95 (1) Aspiration into airway Encounter type: initial encounter Qualified Code(s): T17.908A - Unspecified foreign body in respiratory tract, part unspecified causing other injury, initial encounter
--- NOTE | 2020-09-08 11:36 | Cardiology Consultation ---
Date of Consultation September 08, 2020 Assessment & Plan (1) PSVT (paroxysmal supraventricular tachycardia): (2) Aspiration into airway: (3) Unresponsive: (4) Aortic stenosis: Complex 85-year-old patient admitted with an unresponsive episode related to aspiration/choking with subsequent hypoxia. Successfully extubated without difficulty. CT demonstrating distended esophagus with debris. Swallow eval pending. Gastroenterology considering PEG tube placement at this time. Isolated 50 beat liborio of paroxysmal supraventricular tachycardia noted on telemetry. Resting heart rate borderline bradycardic. Without associated symptoms, recommend continued observation at this time. Maintain adequate electrolyte replacement (potassium greater than 4.0, magnesium greater than 2.0). Patient will receive 20 mEq of IV potassium today. I have ordered serum magnesium level as well. TSH within normal limits. Patient carries history of severe asymptomatic aortic stenosis. He has been managed conservatively due to underlying dementia. Repeat echocardiogram demonstrates stable aortic valve indices. Blood pressure remains elevated. Amlodipine and lisinopril currently on hold due to n.p.o. status. 1/2 inch topical nitrates ordered. Resume oral antihypertensive medications pending speech/swallow evaluation. History of Present Illness Reason for Consultation: PSVT Requesting Physician: Dr. Aviles Attending Physician: Lenny Aviles MD History of Present Illness Complex 85-year-old [facility] with episode of unresponsiveness and aspiration. Per chart review, patient began choking while eating dinner. attempted to perform the Heimlich maneuver. According to notes, patient was not breathing. EMS was summoned ventilated the patient with bag mask. Ultimately patient was intubated in route to the ER. CT performed demonstrating groundglass opacities consistent with infectious process or aspiration. Distended, debris-filled esophagus noted on CT. Patient seen and examined the bedside. He is a poor historian due to underlying dementia. He does not recall the events preceding hospitalization. I discussed history with patient's via telephone. States patient has suffered multiple choking episodes over the past 7 to 10 days. She has utilized the Heimlich maneuver on several occasions. Otherwise, patient has been in his usual state of health. He is able to complete activities of daily living without restriction. No reported shortness of breath, lightheadedness, dizziness, syncope, near syncope, palpitations, orthopnea, PND, lower extremity edema, or chest discomfort. Telemetry reviewed demonstrating isolated 50 beat liborio of paroxysmal supraventricular tachycardia. Allergies Allergy/AdvReac Type Severity Reaction Status Date / Time Penicillins Allergy Unknown UNKNOWN Verified 09/06/20 03:06 REACTION - HAPPENED A CHILD Home Medications Medication Instructions Recorded Confirmed Type amlodipine 5 mg PO DAILY 09/06/20 09/06/20 History aspirin [Children's Aspirin] 81 mg PO DAILY 09/06/20 09/06/20 History atorvastatin 40 mg PO DAILY 09/06/20 09/06/20 History cinnamon bark [Cinnamon] 500 mg PO DAILY 09/06/20 09/06/20 History folic acid 1 mg PO DAILY 09/06/20 09/06/20 History lisinopril 40 mg PO DAILY 09/06/20 09/06/20 History multivitamin 1 tab PO DAILY 09/06/20 09/06/20 History omega-3 fatty acids 1,000 mg PO DAILY 09/06/20 09/06/20 History Patient History Social History Smoking Status: Unknown if ever smoked Hx Alcohol Use: No Hx Substance Use: No Preferred Language: [place] Citizen Communication Ability: Unable Enrollment Advisor Required: No Beliefs That Will Affect Care: None Current Living Situation: Spouse Other Information That Helps Us Care for You: No Feels Safe at Home: Yes Safety Concerns: Feels Safe At This Time Assistive Devices: None Review of Systems Review of Systems: All systems reviewed & are unremarkable except as noted in HPI & below Physical Exam Constitutional: well nourished; no acute distress and not ill appearing Respiratory: Auscultation: + rhonchi (Scattered); no crackles, no rales and no wheezes Cardiovascular: Heart Sounds: normal S1 and + murmur (3/6 systolic ejection murmur heard best at the cardiac base); + abnormal S2 (Diminished) and no cardiac rub Vessels: no JVD and no carotid bruit Extremities: no edema Gastrointestinal (Abdomen): Inspection/Auscultation: abdomen normal to inspection and normal bowel sounds; abdomen not distended Percussion/Palpation: abdomen soft; abdomen nontender, no guarding and abdomen not rigid Skin: no rashes, warm and dry Neurologic: moves all extremities; no focal motor deficits Motor/Sensory: no tremor Psychiatric: Orientation: oriented to person and cooperative Insight: + poor insight Results & Data ([place]) Vital Signs (Past 12 Hours) Vital Signs Temp Pulse Pulse Pulse Resp BP BP 09/08/20 09:55 36.8 C 71 14 172/68 H 09/08/20 07:34 37.1 C 74 20 172/61 H 09/08/20 07:00 80 09/08/20 05:30 170/65 H 09/08/20 04:37 178/81 H 09/08/20 03:15 36.8 C 73 18 180/72 H 194/72 H 09/08/20 01:00 36.6 C Pulse Ox 09/08/20 09:55 98 09/08/20 07:34 100 09/08/20 07:00 09/08/20 05:30 09/08/20 04:37 09/08/20 03:15 95 09/08/20 01:00 Diagnostic Findings July 25, 2020 TTE Report summary: The left ventricular cavity size is normal. The LV wall thickness is severely increased (concentric). The left ventricular wall motion is normal. The qualitative LV ejection fraction is 65-69% (normal). The aortic valve is moderately calcified. The aortic valve opening is severely reduced. Image and Doppler assessment of aortic stenosis severity is discordant: Severe aorticstenosis is present. Mild aortic valve regurgitation is present. There is moderate mitral annular calcification. Moderate tricuspid regurgitation is present. The estimated pulmonary artery systolic pressure is 35-40mm Hg. (1) Aortic stenosis Cardiac valve disease etiology: nonrheumatic Qualified Code(s): I35.0 - Nonrheumatic aortic (valve) stenosis (2) Aspiration into airway Encounter type: initial encounter Qualified Code(s): T17.908A - Unspecified foreign body in respiratory tract, part unspecified causing other injury, initial encounter
--- NOTE | 2020-09-08 14:01 | Fluoroscopy Report ---
FL video swallow HISTORY: Pneumonia. Assess for aspiration TECHNIQUE: Video fluoroscopic evaluation of swallowing was performed in the AP and lateral projection s by the speech pathology staff. The patient is fed nectar-thick and thin liquid barium, a barium coa oleg wafer, and barium pudding. FLUOROSCOPY TIME: 2.1 minutes. A cine loop submitted. COMPARISON STUDY: None. FINDINGS: There is normal hyoid excursion and epiglottic deflection. There is significant residue at the vallecula and piriform sinuses. This results in delayed aspiration of the barium. IMPRESSION: 1. Significant residue within the hypopharynx resulting in delayed aspiration. 2. Please see the speech pathologist report for detailed findings and recommendations. ACT 112: Negative or not required by law. Electronically signed by: Jesse Koehler M.D. 09/08/2020 2:00 PM
[2020-09-08] MEDS: NITROGLYCERIN 2% OINTMENT 30GM TUBE EXT SCH ×2 (14:02→20:19)
--- NOTE | 2020-09-08 18:31 | Electrocardiogram Report ---
Test Reason : Blood Pressure : / mmHG Vent. Rate : 079 BPM Atrial Rate : 079 BPM P-R Int : 210 ms QRS Dur : 080 ms QT Int : 408 ms P-R-T Axes : 053 016 055 degrees QTc Int : 467 ms Sinus rhythm with 1st degree A-V block with Premature supraventricular complexes Minimal voltage criteria for LVH, may be normal variant Borderline ECG When compared with ECG of 06-SEP-2020 02:51, Premature supraventricular complexes are now Present Confirmed by Aris Sanon ([id number]) on 09/08/2020 6:30:58 PM Referred By: REFERRED SELF Confirmed By:John Sanon
--- NOTE | 2020-09-08 18:37 | Electrocardiogram Report ---
Test Reason : Blood Pressure : / mmHG Vent. Rate : 065 BPM Atrial Rate : 065 BPM P-R Int : 212 ms QRS Dur : 092 ms QT Int : 432 ms P-R-T Axes : 056 -08 062 degrees QTc Int : 449 ms Sinus rhythm with 1st degree A-V block Minimal voltage criteria for LVH, may be normal variant Borderline ECG When compared with ECG of 08-SEP-2020 06:41, (unconfirmed) Premature supraventricular complexes are no longer Present Confirmed by Aris Sanon ([id number]) on 09/08/2020 6:36:55 PM Referred By: REFERRED SELF Confirmed By:John Sanon
[2020-09-08] MEDS ORDERED: METOPROLOL TARTRATE 1 MG/ML VIAL IV PRN (22:13)
[2020-09-09] MEDS ORDERED: LORazepam 0.25 MG/0.5 ML VIAL IV STA (01:03)
[2020-09-09] MEDS: NITROGLYCERIN 2% OINTMENT 30GM TUBE EXT SCH ×5 (01:20→23:54)
[2020-09-09] MEDS: ERTAPENEM SODIUM 1,000 MG in SODIUM CHLORIDE 0.9% 50 ML IV SCH (07:30)
[2020-09-09 08:30] LABS: Basophils # (auto) 0.01 K/uL (0-0.2); Basophils % (auto) 0.1 %; Eosinophils # (auto) 0.07 K/uL (0-0.5); Eosinophils % (auto) 0.6 %; Hematocrit (blood only) 39.3 % (42-52); Hemoglobin 13.2 g/dL (14.0-18.0); Immature Granulocytes # (auto) 0.02 K/uL (0.00-0.02); Immature Granulocytes % (auto) 0.2 %; Lymphocytes # (auto) 1.28 K/uL (1.2-3.4); Lymphocytes % (auto) 11.9 %; Mean Corpuscular Hemoglobin 31.6 pg (25-34); Mean Corpuscular Hgb Conc 33.6 g/dL (32-36); Mean Platelet Volume 10.2 fL (7.4-10.4); Monocytes % (auto) 12.1 %; Neutrophils # (auto) 8.09 K/uL (1.4-6.5); Neutrophils % (auto) 75.1 %; Platelet Count 217 K/uL (130-400); RDW Coefficient of Variation 12.9 % (11.5-14.5); RDW Standard Deviation 44.7 fL (36.4-46.3); Red Blood Count 4.18 M/uL (4.7-6.1); White Blood Count 10.77 K/uL (4.8-10.8)
[2020-09-09 08:48] LABS: BUN Creatinine Ratio 21.4 (10-20); Calcium 8.9 mg/dl (8.5-10.1); Creatinine Clr Calc Pharmacy 56.1 ml/min; Est GFR (African American) 89.9; Est GFR (Non-African American) 77.6; Magnesium 2.1 mg/dl (1.8-2.4); Potassium 3.6 mmol/L (3.5-5.1)
[2020-09-09 08:49] LABS: Phosphorus 2.8 mg/dl (2.5-4.9)
[2020-09-09] MEDS ORDERED: METOPROLOL TARTRATE 1 MG/ML VIAL IV STA (09:23)
[2020-09-09] MEDS: PANTOprazole 40 MG in SYRINGE 0 ML IV SCH (09:30)
[2020-09-09] MEDS: INSULIN ASPART 100 UNITS/ML 3 ML PEN SC SCH ×4 (09:30→20:48)
--- NOTE | 2020-09-09 09:56 | Hospitalist Progress Note ---
Date of Service September 09, 2020 Assessment & Plan (1) Aspiration into airway: Unresponsiveness at home likely due to aspiration Possible aspiration pneumonia -as per ED notes "This is an 85-year-old male brought in from home via EMS due to a sudden change in mental status leading to unresponsiveness witnessed by the . The reported to EMS he had been having difficulty swallowing for 3 days, this evening suddenly appeared to be choking or gagging and then went unresponsive in front of her. She noted he did not appear to be breathing so she started doing CPR and called 911. On EMS arrival patient had a pulse and was hypertensive although had agonal respirations. They inserted an OPA without difficulty and began bagging the patient. denies any prior GI history. Stated he does have a history of dementia but has been fairly active and independent otherwise. No recent illness or change in medications. They did call for medical command for orders for etomidate in order to secure the patient's airway as even with bagging and improving oxygenation he continued to be unresponsive. Patient was intubated by EMS prior to arrival with a 7.5 ET tube. EMS did note that while they had a clear visualization of the airway there appeared to be emesis in the posterior oropharynx that required suctioning. No blood was noted. No other evidence of airway edema or foreign body. Patient given Versed 7.5 mg and fentanyl 150 mcg post intubation for sedation in route. There was additional emesis that required in line suctioning. Patient's blood pressure was improved upon arrival here, patient being bagged easily, and was still unresponsive." -admission CTA: No pulmonary emboli identified, Multifocal groundglass opacities within the lungs which favor an infectious process or sequela of aspiration, Moderately distended debris-filled esophagus. -he was given initially Zosyn and Ertapenem, currently on Ertapenem alone since the day time of 09/06/2020, can continue for now -Patient was extubated on 09/06/2020, currently on room air oxygen Dysphagia -09/07/2020 ICU physician expressed concerns of overall prognosis of the patient despite recent extubation because of history of dysphagia. -09/08/2020 speech therapist informed hospitalist that patient is not outright choking based on the video swallow study but the risk of aspiration in future is still present because patient is impulsive with eating the food. hospitalist accepted recommendations from speech therapist that with an oral diet, the patient will have to be closely supervised and this has been done by nursing staff -09/09/2020: defer to gastroenterology service on evaluating patient and family on PEG placement (2) Alzheimer's dementia: History of Alzheimer's dementia -currently with nursing surgical services director staff to reorient him as needed (3) BPH (benign prostatic hyperplasia): -madrigal placed by urology service on 09/06/2020 while under ICU level of care (4) Aortic stenosis: -history of severe aortic stenosis, last echo 07/2020 ([facility]) -likely is the reason for audible heart murmur on auscultation PSVT (paroxysmal supraventricular tachycardia) -09/08/2020 Patient noted to have run of SVT and cardiology was consulted -09/09/2020 Patient had on 5:03 AM to 5:23 AM runs of SVT. cardiology following the patient and the strategy for now will be scheduled IV metoprolol and additional prn if needed History of Hypertension -on IV metoprolol Type 2 diabetes mellitus -monitor blood sugars. sliding scale insulin as needed Full Code Status on admission Admission and Anticipated Discharge Date Admission Date: September 06, 2020 Subjective -09/08/2020 speech therapist informed hospitalist that patient is not outright choking based on the video swallow study but the risk of aspiration in future is still present because patient is impulsive with eating the food. hospitalist accepted recommendations from speech therapist that with an oral diet, the patient will have to be closely supervised and this has been done by nursing staff -09/09/2020: defer to gastroenterology service on evaluating patient and family on PEG placement Patient had on 5:03 AM to 5:23 AM runs of SVT. Patient apparently was not symptomatic. Patient has dementia but denies acute systems on review of systems Review of Systems Review of Systems: All systems reviewed & are unremarkable except as noted in Subjective Physical Exam Constitutional: cooperative and comfortable Eyes: PERRL, conjunctivae normal, anicteric sclerae EOM intact bilaterally ENMT: external ear and nose normal, oropharynx normal Neck: normal visual inspection Respiratory: normal respiratory effort Cardiovascular: Rate/Rhythm: regular rate and regular rhythm Heart Sounds: + murmur Gastrointestinal (Abdomen): normal bowel sounds, soft, nontender, no hepatosplenomegaly Musculoskeletal: Head/Neck/Chest: normocephalic and head atraumatic Neurologic: awake Psychiatric: Orientation: alert Results & Data Results & Data ([facility]) Vital Signs (Past 12 Hours) Vital Signs Temp Pulse Pulse Pulse Resp BP BP 09/09/20 07:24 79 20 159/79 H 09/09/20 05:17 160 H 09/09/20 03:00 37.6 C H 88 18 166/68 H 09/08/20 23:21 37.5 C 69 20 171/72 H 09/08/20 22:07 120/74 Pulse Ox 09/09/20 07:24 94 09/09/20 05:17 09/09/20 03:00 94 09/08/20 23:21 95 09/08/20 22:07 (1) Aspiration into airway Encounter type: initial encounter Qualified Code(s): T17.908A - Unspecified foreign body in respiratory tract, part unspecified causing other injury, initial encounter (2) Aortic stenosis Cardiac valve disease etiology: nonrheumatic Qualified Code(s): I35.0 - Nonrheumatic aortic (valve) stenosis
--- NOTE | 2020-09-09 11:42 | Cardiology Progress Note ---
Date of Service September 09, 2020 Assessment & Plan (1) PSVT (paroxysmal supraventricular tachycardia): (2) Aspiration into airway: (3) Unresponsive: (4) Aortic stenosis: Complex 85-year-old patient admitted with an unresponsive episode related to aspiration/choking with subsequent hypoxia. Successfully extubated without difficulty. CT demonstrating distended esophagus with debris. Videofluoroscopic swallow evaluation demonstrating significant residue within the hypopharynx resulting in delayed aspiration. Gastroenterology considering PEG tube placement at this time. Recurrent episodes of supraventricular tachycardia recorded overnight. Recommend addition of low-dose beta-carolyn therapy. Patient n.p.o. at this time. I will add Lopressor 2.5 mg IV every 6 hours. Transition to metoprolol tartrate 12.5 mg twice daily when PEG tube placed. Maintain adequate electrolyte replacement (potassium greater than 4.0, magnesium greater than 2.0). 20 mEq of IV potassium today. Patient carries history of severe asymptomatic aortic stenosis. He has been managed conservatively due to underlying dementia. Repeat echocardiogram demonstrates stable aortic valve indices. Blood pressure remains elevated. Amlodipine and lisinopril currently on hold due to n.p.o. status. Increased topical nitrates to 1 inch every 6 hours. Resume oral antihypertensive medications pending speech/swallow evaluation. Admission and Anticipated Discharge Date Admission Date: September 06, 2020 Subjective Patient seen and examined at the bedside. Poor historian due to underlying dementia. Denies chest pain, palpitations, shortness of breath. Remains n.p.o. in anticipation of possible PEG tube placement. Telemetry reveals episodes of paroxysmal supraventricular tachycardia with heart rate as high as 150 bpm overnight. No associated symptoms. Currently sinus rhythm in the 70s. Review of Systems Review of Systems: Unobtainable due to cognitive status Physical Exam Constitutional: well nourished; no acute distress and not ill appearing Respiratory: Auscultation: + rhonchi (Scattered); no crackles, no rales and no wheezes Cardiovascular: Heart Sounds: normal S1 and + murmur (3/6 systolic ejection murmur heard best at the cardiac base); + abnormal S2 (Diminished) and no cardiac rub Vessels: no JVD and no carotid bruit Extremities: no edema Gastrointestinal (Abdomen): Inspection/Auscultation: abdomen normal to inspection and normal bowel sounds; abdomen not distended Percussion/Palpation: abdomen soft; abdomen nontender, no guarding and abdomen not rigid Skin: no rashes, warm and dry Neurologic: moves all extremities; no focal motor deficits Motor/Sensory: no tremor Psychiatric: Orientation: oriented to person and cooperative Insight: + poor insight Results & Data ([facility]) Vital Signs (Past 12 Hours) Vital Signs Temp Pulse Pulse Pulse Resp BP BP 09/09/20 10:11 77 09/09/20 10:00 77 77 173/82 H 173/82 H 09/09/20 07:24 79 20 159/79 H 09/09/20 05:17 160 H 09/09/20 03:00 37.6 C H 88 18 166/68 H Pulse Ox 09/09/20 10:11 09/09/20 10:00 09/09/20 07:24 94 09/09/20 05:17 09/09/20 03:00 94 (1) Aortic stenosis Cardiac valve disease etiology: nonrheumatic Qualified Code(s): I35.0 - Nonrheumatic aortic (valve) stenosis (2) Aspiration into airway Encounter type: initial encounter Qualified Code(s): T17.908A - Unspecified foreign body in respiratory tract, part unspecified causing other injury, initial encounter
--- NOTE | 2020-09-09 11:47 | Communication Note ---
Date of Service: September 09, 2020 Discussed with hospitalist and attending PEG deferred today given discussion [employer]LE [employer]ER had w/ hospitalist team. Also pt ate breakfast. Can consider EGD this admission. Did try to contact family to update. Please keep NPO after midnight. Attg add: I interviewed and examined pt, reviewed chart and labs. METAL RECLAMATION KETTLE TENDER note reviewed - pt high risk for aspiration, but ok for supervised PO intake. Given CT findins, will plan EGD r/o esophageal obstruction tomorrow. No plans for PEG at this time.
[2020-09-09] MEDS: POTASSIUM ACETATE 10 MEQ in 0.9 % SODIUM CHLORIDE 100 ML IV SCH ×2 (12:05→13:10)
[2020-09-09] MEDS: METOPROLOL TARTRATE 1 MG/ML VIAL IV SCH ×3 (12:05→23:41)
--- NOTE | 2020-09-09 15:03 | Electrocardiogram Report ---
Test Reason : Blood Pressure : / mmHG Vent. Rate : 070 BPM Atrial Rate : 070 BPM P-R Int : 202 ms QRS Dur : 080 ms QT Int : 418 ms P-R-T Axes : 099 -13 062 degrees QTc Int : 451 ms Normal sinus rhythm with 1st degree AV block Minimal voltage criteria for LVH, may be normal variant Borderline ECG When compared with ECG of 08-SEP-2020 10:34, No significant change was found Confirmed by Aris Sanon ([id number]) on 09/09/2020 3:03:26 PM Referred By: REFERRED SELF Confirmed By:John Sanon
[2020-09-10] MEDS ORDERED: hydrALAZINE HCL 20 MG/ML VIAL IV ONE (05:14)
[2020-09-10] MEDS: METOPROLOL TARTRATE 1 MG/ML VIAL IV SCH ×4 (05:19→23:20)
[2020-09-10] MEDS: NITROGLYCERIN 2% OINTMENT 30GM TUBE EXT SCH ×4 (05:29→23:26)
[2020-09-10 05:50] LABS: Basophils # (auto) 0.01 K/uL (0-0.2); Basophils % (auto) 0.1 %; Eosinophils # (auto) 0.19 K/uL (0-0.5); Eosinophils % (auto) 2.5 %; Hemoglobin 12.1 g/dL (14.0-18.0); Immature Granulocytes # (auto) 0.01 K/uL (0.00-0.02); Immature Granulocytes % (auto) 0.1 %; Lymphocytes # (auto) 1.13 K/uL (1.2-3.4); Lymphocytes % (auto) 14.8 %; Mean Corpuscular Hemoglobin 31.4 pg (25-34); Mean Corpuscular Hgb Conc 33.6 g/dL (32-36); Mean Corpuscular Volume 93.5 fL (80-100); Mean Platelet Volume 9.7 fL (7.4-10.4); Monocytes # (auto) 1.03 K/uL (0.11-0.59); Monocytes % (auto) 13.5 %; Neutrophils # (auto) 5.27 K/uL (1.4-6.5); Platelet Count 185 K/uL (130-400); RDW Coefficient of Variation 12.7 % (11.5-14.5); RDW Standard Deviation 43.6 fL (36.4-46.3); Red Blood Count 3.85 M/uL (4.7-6.1); White Blood Count 7.64 K/uL (4.8-10.8)
[2020-09-10 06:08] LABS: Albumin Level 2.8 gm/dl (3.4-5.0); BUN Creatinine Ratio 24.4 (10-20); Calcium 8.4 mg/dl (8.5-10.1); Creatinine Clr Calc Pharmacy 69.2 ml/min; Est GFR (Non-African American) 84.6; Potassium 3.6 mmol/L (3.5-5.1)
[2020-09-10 06:11] LABS: Albumin Globulin Ratio 0.8 (0.9-2); Bilirubin,Total 0.7 mg/dl (0.2-1); Globulin 3.3 gm/dl (2.5-4.0); Total Protein 6.1 gm/dl (6.4-8.2)
[2020-09-10] MEDS: ERTAPENEM SODIUM 1,000 MG in SODIUM CHLORIDE 0.9% 50 ML IV SCH (08:16)
[2020-09-10] MEDS: INSULIN ASPART 100 UNITS/ML 3 ML PEN SC SCH ×4 (08:19→20:43)
[2020-09-10] MEDS: PANTOprazole 40 MG in SYRINGE 0 ML IV SCH (08:34)
--- NOTE | 2020-09-10 10:16 | Urology Progress Note ---
Date of Service September 10, 2020 Assessment & Plan (1) Urethral stricture, traumatic: (2) BPH (benign prostatic hyperplasia): Leave catheter indwelling for 1 week or can remove this Tuesday. Remove only if patient able to stand to void. Start finasteride for possible BPH. Admission and Anticipated Discharge Date Admission Date: September 06, 2020 Subjective Patient had Lara placed last Tuesday with a cystoscopy because of a false passage. Patient with some dementia seen today with catheter indwelling. Would leave catheter in for at least 1 week and until he is ambulating. Tentatively start patient on finasteride and make sure the patient is voiding by checking a postvoid residual after removing catheter .. If patient has difficulty voiding please let us know. Taped catheter in place. Again would not remove catheter prior to Tuesday or until he is ambulating. Make sure patient denies not tugging on Lara catheter. Results & Data ([facility]) Vital Signs (Past 12 Hours) Vital Signs Temp Pulse Pulse Resp BP BP Pulse Ox 09/10/20 07:24 36.9 C 59 L 18 162/71 H 96 09/10/20 06:12 62 151/67 H 09/10/20 05:19 106 H 09/10/20 02:44 37 C 61 18 184/78 H 96 09/09/20 23:41 56 L 09/09/20 23:02 36.5 C 57 L 18 152/74 H 96 PG Care Time/CCT Total # of Minutes Spent Total Time Spent with Patient: Total time spent is greater than 50% in coordination of care (as documented) at patient's floor/unit and/or counseling patient: Coding Level of Care Code 39519 Subseq Hosp Care Lvl 1 Diagnoses Urethral stricture, traumatic BPH (benign prostatic hyperplasia) N40.0
[2020-09-10] MEDS ORDERED: LIDOCAINE HCL 2% 2 ML VIAL/AMP(20MG/ML) INFIL ONE (10:50)
[2020-09-10] MEDS ORDERED: ONDANSETRON INJ 2 MG/ML 2 ML VIAL ONE (10:50)
[2020-09-10] MEDS ORDERED: fentaNYL citrate 100 MCG/2 ML VIAL ONE (10:50)
[2020-09-10] MEDS ORDERED: PROPOFOL IV EMULSION 10 MG/ML 20 ML VIAL IV ONE (10:50)
[2020-09-10] MEDS ORDERED: ETOMIDATE 2 MG/ML 20 ML VIAL IV ONE (10:50)
--- NOTE | 2020-09-10 10:57 | Cardiology Progress Note ---
Date of Service September 10, 2020 Assessment & Plan (1) PSVT (paroxysmal supraventricular tachycardia): (2) Aspiration into airway: (3) Unresponsive: (4) Aortic stenosis: No recurrent supraventricular tachycardia overnight. Continue low-dose IV metoprolol. Transition to metoprolol tartrate 12.5 mg twice daily when able. Resume amlodipine and lisinopril when able to take oral medications and/or feeding tube placed. Admission and Anticipated Discharge Date Admission Date: September 06, 2020 Subjective Patient seen and examined at the bedside. Poor historian due to underlying dementia. No recurrent supraventricular tachycardia on telemetry. Evening in a.m. dose of metoprolol held due to bradycardia. Patient without complaints. EGD scheduled today. Review of Systems Review of Systems: Unobtainable due to cognitive status Physical Exam Constitutional: well nourished; no acute distress and not ill appearing Respiratory: Auscultation: + rhonchi (Scattered); no crackles, no rales and no wheezes Cardiovascular: Heart Sounds: normal S1 and + murmur (3/6 systolic ejection murmur heard best at the cardiac base); + abnormal S2 (Diminished) and no cardiac rub Vessels: no JVD and no carotid bruit Extremities: no edema Gastrointestinal (Abdomen): Inspection/Auscultation: abdomen normal to inspection and normal bowel sounds; abdomen not distended Percussion/Palpation: abdomen soft; abdomen nontender, no guarding and abdomen not rigid Skin: no rashes, warm and dry Neurologic: moves all extremities; no focal motor deficits Motor/Sensory: no tremor Psychiatric: Orientation: oriented to person and cooperative Insight: + poor insight Results & Data ([facility]) Vital Signs (Past 12 Hours) Vital Signs Temp Pulse Pulse Resp BP BP Pulse Ox 09/10/20 07:24 36.9 C 59 L 18 162/71 H 96 09/10/20 06:12 62 151/67 H 09/10/20 05:19 106 H 09/10/20 02:44 37 C 61 18 184/78 H 96 09/09/20 23:41 56 L 09/09/20 23:02 36.5 C 57 L 18 152/74 H 96 (1) Aortic stenosis Cardiac valve disease etiology: nonrheumatic Qualified Code(s): I35.0 - Nonrheumatic aortic (valve) stenosis (2) Aspiration into airway Encounter type: initial encounter Qualified Code(s): T17.908A - Unspecified foreign body in respiratory tract, part unspecified causing other injury, initial encounter
--- NOTE | 2020-09-10 11:09 | History & Physical Report ---
Date of Service September 10, 2020 Assessment & Plan (1) Dysphagia: EGD today in the OR Admission and Anticipated Discharge Date Admission Date: September 06, 2020 History of Present Illness Chief Complaint: dysphagia ?esophageal dysmotility Primary Care Provider: Juan Michel DO dysphagia Allergies Allergy/AdvReac Type Severity Reaction Status Date / Time Penicillins Allergy Unknown UNKNOWN Verified 09/06/20 03:06 REACTION - HAPPENED A CHILD Home Medications Medication Instructions Recorded Confirmed Type amlodipine 5 mg PO DAILY 09/06/20 09/06/20 History aspirin [Children's Aspirin] 81 mg PO DAILY 09/06/20 09/06/20 History atorvastatin 40 mg PO DAILY 09/06/20 09/06/20 History cinnamon bark [Cinnamon] 500 mg PO DAILY 09/06/20 09/06/20 History folic acid 1 mg PO DAILY 09/06/20 09/06/20 History lisinopril 40 mg PO DAILY 09/06/20 09/06/20 History multivitamin 1 tab PO DAILY 09/06/20 09/06/20 History omega-3 fatty acids 1,000 mg PO DAILY 09/06/20 09/06/20 History Past Med/Surg History Social History Smoking Status: Unknown if ever smoked Hx Alcohol Use: No Hx Substance Use: No Preferred Language: Serbian Communication Ability: Unable Interviewing Clerk Required: No Beliefs That Will Affect Care: None Current Living Situation: Spouse Other Information That Helps Us Care for You: No Feels Safe at Home: Yes Safety Concerns: Feels Safe At This Time Assistive Devices: Denture - Upper and Denture - Lower Review of Systems All systems reviewed & are unremarkable except as noted in HPI & below Results & Data ([facility]) Vital Signs (Past 12 Hours) Vital Signs Temp Pulse Pulse Resp BP BP Pulse Ox 09/10/20 07:24 36.9 C 59 L 18 162/71 H 96 09/10/20 06:12 62 151/67 H 09/10/20 05:19 106 H 09/10/20 02:44 37 C 61 18 184/78 H 96 09/09/20 23:41 56 L Code Status & VTE Plan VTE Prophylaxis Plan VTE Prophylaxis will be ordered: Yes
--- NOTE | 2020-09-10 11:13 | Anesthesiology Consultation ---
Date of Service September 10, 2020 Assessment & Plan (1) Encounter for pre-operative examination: Chart Review Chart Review: Acceptable Risk for Surgery and Patient NOT seen in Pre Admission Testing Consults Requested none History Surgery Operation Date: 09/10/20 07:00 Proposed Procedures p Esophagogastroduodenoscopy - Jody Corbett DO Operation Date: 09/10/20 16:00 Proposed Procedures p Esophagogastroduodenoscopy Dr Roxana Weaver MD s Peg Tube Placement Dr Meg Weaver MD Height/Weight Height: 5 ft 7 in Weight: 69.9 kg Allergies Allergy/AdvReac Type Severity Reaction Status Date / Time Penicillins Allergy Unknown UNKNOWN Verified 09/06/20 03:06 REACTION - HAPPENED A CHILD Medications Home Medications Medication Instructions Recorded Confirmed Last Taken amlodipine 5 mg PO DAILY 09/06/20 09/06/20 Unknown aspirin [Children's Aspirin] 81 mg PO DAILY 09/06/20 09/06/20 Unknown atorvastatin 40 mg PO DAILY 09/06/20 09/06/20 Unknown cinnamon bark [Cinnamon] 500 mg PO DAILY 09/06/20 09/06/20 Unknown folic acid 1 mg PO DAILY 09/06/20 09/06/20 Unknown lisinopril 40 mg PO DAILY 09/06/20 09/06/20 Unknown multivitamin 1 tab PO DAILY 09/06/20 09/06/20 Unknown omega-3 fatty acids 1,000 mg PO DAILY 09/06/20 09/06/20 Unknown Active Medications Generic Name Dose Route Start Last Admin Trade Name Donovanq PRN Reason Stop Dose Admin Dextrose 25 - 50 ml 09/06/20 06:30 09/08/20 05:51 Dextrose 50% 50 Ml Syringe IV 10/06/20 06:29 25 ml UD PRN Administration Hypoglycemia Protocol Protocol Ertapenem 1,000 mg/ Sodium 60 mls @ 100 mls/hr 09/07/20 07:00 09/10/20 09:12 Chloride IV 09/14/20 06:59 Infused Q24H MAYO Infusion Protocol Pantoprazole Sodium 40 mg/ 10 mls @ 5 mls/min 09/07/20 09:00 09/10/20 08:34 Syringe IV 10/07/20 08:59 5 mls/min DAILY MAYO Administration Insulin Aspart 0 units 09/08/20 21:00 09/10/20 08:19 Insulin Aspart 100 Units/Ml 3 Ml Pen SC 10/08/20 20:59 Not Given ACHS MAYO Metoprolol Tartrate 2.5 mg 09/08/20 22:13 09/09/20 05:17 Metoprolol Tartrate 1 Mg/Ml Vial IV 10/09/20 00:00 2.5 mg Q6 PRN Administration Tachycardia Metoprolol Tartrate 2.5 mg 09/09/20 12:00 09/10/20 05:19 Metoprolol Tartrate 1 Mg/Ml Vial IV 10/09/20 11:59 Not Given Q6 MAYO Nitroglycerin 1 inch 09/09/20 12:00 09/10/20 05:29 Nitroglycerin 2% Ointment 30gm Tube EXT 10/09/20 11:59 1 inch Q6H MAYO Administration Past Medical History Medical History (Updated 09/10/20 @ 11:21 by Viktor Kaye MD) Alzheimer's dementia Aortic stenosis Aspiration into airway BPH (benign prostatic hyperplasia) Bradycardia PSVT (paroxysmal supraventricular tachycardia) Respiratory failure This is an 85-year-old male with past medical history significant for type 2 diabetes, not on any medications, hyperlipidemia, chronic rhinitis, ascending aortic dilatation, severe aortic valve stenosis, history of mitral valve vegetation, hypertension, mitral valve insufficiency, benign neoplasm of colon, nocturnal enuresis, sensorineural hearing loss, Alzheimer's dementia, history of prostate cancer. Recent intubation 2/2 likely aspiration. Patient was successfully extubated 09/06/2020 Exercise / Class Metabolic Activity III < 4 Walking/Shop/Light housework Past Surgical History shoulder surgery and cataract surgery. Past Anesthesia History No Hx of Anesthesia Complications History of PONV No Hx of PONV and No Hx of Motion Sickness Social History Smoking Status: Unknown if ever smoked Do You Dip or Chew Tobacco: No Hx Alcohol Use: No Hx Substance Use: No Physical Exam Vital Signs Last Vital Signs Temp 36.5 C 09/10/20 11:14 Pulse 57 L 09/10/20 11:14 Resp 18 09/10/20 11:14 BP 146/64 H 09/10/20 11:14 Pulse Ox 98 09/10/20 11:14 Testing Laboratory Results 09/10/20 05:35 09/10/20 05:35 PT 11.2 Seconds (9.0-12.0) 09/06/20 03:12 INR 1.1 (0.9-1.1) 09/06/20 03:12 Hemoglobin A1c 5.6 % (4.5-5.6) 09/07/20 04:59 Urine Color Yellow 09/06/20 09:55 Urine Appearance Clear (Clear) 09/06/20 09:55 Urine pH 7.0 (4.5-7.5) 09/06/20 09:55 Ur Specific [place] 1.039 (1.000-1.030) H 09/06/20 09:55 Urine Protein Negative (Negative) 09/06/20 09:55 Urine Glucose (UA) Negative (Negative) 09/06/20 09:55 Urine Ketones Negative (Negative) 09/06/20 09:55 Urine Nitrite Negative (Negative) 09/06/20 09:55 Ur Leukocyte Esterase Negative (Negative) 09/06/20 09:55 Urine WBC (Auto) 1-5 /hpf (0-5) 09/06/20 09:55 Urine RBC (Auto) >30 /hpf (0-4) H 09/06/20 09:55 U Hyaline Cast (Auto) 1-5 /lpf (0-5) 09/06/20 09:55 U Epithel Cells (Auto) 5-10 /lpf (0-5) H 09/06/20 09:55 Urine Bacteria (Auto) Negative (Negative) 09/06/20 09:55 09/06/20 03:12 Aerobic Blood Culture - Preliminary Blood No growth in Aerobic bottle after 48 hours. Anaerobic Blood Culture - Preliminary No growth in Anaerobic bottle after 48 hours. 09/06/20 03:12 Aerobic Blood Culture - Preliminary Blood No growth in Aerobic bottle after 48 hours. Anaerobic Blood Culture - Preliminary No growth in Anaerobic bottle after 48 hours. 09/10/20 11:01 POC Glucose 99 Electrocardiogram DICTATED BY: Aris Sanon MD Test Reason : Blood Pressure : / mmHG Vent. Rate : 070 BPM Atrial Rate : 070 BPM P-R Int : 202 ms QRS Dur : 080 ms QT Int : 418 ms P-R-T Axes : 099 -13 062 degrees QTc Int : 451 ms Normal sinus rhythm with 1st degree AV block Minimal voltage criteria for LVH, may be normal variant Borderline ECG When compared with ECG of 08-SEP-2020 10:34, No significant change was found Confirmed by Aris Sanon ([id number]) on 09/09/2020 3:03:26 PM Echocardiogram Severe . EF 70%.
[2020-09-10] MEDS ORDERED: ATROPINE SULFATE 0.1 MG/ML 10ML SYR IV PRN (11:26)
[2020-09-10] MEDS ORDERED: ePHEDrine sulfate 50 MG/ML AMP IV PRN (11:26)
[2020-09-10] MEDS ORDERED: ONDANSETRON INJ 2 MG/ML 2 ML VIAL IV PRN (11:26)
[2020-09-10] MEDS ORDERED: fentaNYL citrate 100 MCG/2 ML VIAL IV PRN (11:26)
--- NOTE | 2020-09-10 11:55 | GI REPORT ---
Patient Name: Dennis Hernandez Procedure Date: 09/10/2020 11:21 AM Date of : 1935 Admit Type: Inpatient Age: 85 Gender: Male Attending MD: Jody Corbett DO Procedure: Upper GI endoscopy Providers: Jody Corbett DO Referring MD: Carlos Roblero Indications: Dysphagia Medicines: Propofol per Anesthesia Complications: No immediate complications. Estimated blood loss: None. Estimated Blood Loss: Estimated blood loss: none. Procedure: Pre-Anesthesia Assessment: - Prior to the procedure, a History and Physical was performed, and patient medications, allergies and sensitivities were reviewed. The patient's tolerance of previous anesthesia was reviewed. - The risks and benefits of the procedure and the sedation options and risks were discussed with the patient. All questions were answered and informed consent was obtained. - Patient identification and proposed procedure were verified prior to the procedure by the physician and the nurse. The procedure was verified in the pre-procedure area in the procedure room. - Mental Status Examination: alert but confused. Airway Examination: normal oropharyngeal airway and neck mobility. Respiratory Examination: clear to auscultation. CV Examination: regular rate and rhythm. Abdominal Examination: bowel sounds present, abdomen soft and non-tender, no masses or organomegaly noted. - ASA Grade Assessment: IV - A patient with severe systemic disease that is a constant threat to life. After obtaining informed consent, the endoscope was passed under direct vision. Throughout the procedure, the patient's blood pressure, pulse, and oxygen saturations were monitored continuously. The Endoscope was introduced through the mouth, and advanced to the third part of duodenum. The upper GI endoscopy was accomplished without difficulty. The patient tolerated the procedure well. Findings: The esophagus was normal. The stomach was normal. The examined duodenum was normal. Impression: - Normal esophagus. No stricture. - Normal stomach. - Normal examined duodenum. - No specimens collected. Recommendation: - Return patient to [facility] for ongoing care. - Diet per speech therapy. Emerson Norman DO 09/10/2020 11:55:25 AM This report has been signed electronically. Note Initiated On: 09/10/2020 11:21 AM Number of Addenda: 0 I attest to the content of the Intraoperative Record and orders documented therein, exceptions below {[id number]}
--- NOTE | 2020-09-10 12:00 | Communication Note ---
Date of Service: September 10, 2020 EGD done in the OR. EGD is normal.
--- NOTE | 2020-09-10 14:06 | Anesthesiology Progress Note ---
Date of Service September 10, 2020 Anesthesia Post Procedure Vital Signs Vital Signs: Temp Pulse Pulse Pulse Resp BP BP 09/10/20 13:54 67 124/57 L 09/10/20 13:50 36 C L 62 18 09/10/20 13:20 36.8 C 64 18 09/10/20 13:05 36.6 C 69 18 09/10/20 12:45 36.6 C 63 13 09/10/20 12:35 59 L 17 09/10/20 12:25 67 16 09/10/20 12:15 58 L 16 09/10/20 12:09 36.0 C L 58 L 12 09/10/20 11:14 36.5 C 57 L 18 146/64 H 09/10/20 11:13 36.5 C 57 L 18 09/10/20 07:24 36.9 C 59 L 18 09/10/20 06:12 62 151/67 H 09/10/20 05:19 106 H 09/10/20 02:44 37 C 61 18 09/09/20 23:41 56 L 09/09/20 23:02 36.5 C 57 L 18 09/09/20 19:17 36.6 C 57 L 20 148/67 H 09/09/20 18:20 65 177/72 H 09/09/20 16:30 36.8 C 65 18 177/72 H BP Pulse Ox 09/10/20 13:54 09/10/20 13:50 143/65 H 95 09/10/20 13:20 124/57 L 94 09/10/20 13:05 139/77 96 09/10/20 12:45 120/58 L 99 09/10/20 12:35 101/59 L 98 09/10/20 12:25 96/51 L 100 09/10/20 12:15 116/56 L 99 09/10/20 12:09 111/48 L 99 09/10/20 11:14 98 09/10/20 11:13 163/70 H 98 09/10/20 07:24 162/71 H 96 09/10/20 06:12 09/10/20 05:19 09/10/20 02:44 184/78 H 96 09/09/20 23:41 09/09/20 23:02 152/74 H 96 09/09/20 19:17 98 09/09/20 18:20 09/09/20 16:30 94 Transfer of Care Handoff Completed per policy Notes Mental Status: alert / awake / arousable and participated in evaluation Patient Amnestic to Procedure: Yes Nausea / Vomiting: adequately controlled Pain: adequately controlled Airway Patency, RR, SpO2: stable & adequate BP & HR: stable & adequate Hydration State: stable & adequate Anesthetic Complications: no major complications apparent and Pt Satisfied with anesthetic care
[2020-09-10] MEDS: OLANZAPINE 2.5 MG TAB PO PRN (21:14)
--- NOTE | 2020-09-10 21:37 | Hospitalist Progress Note ---
Date of Service September 10, 2020 Assessment & Plan (1) Aspiration into airway: Unresponsiveness at home likely due to aspiration Acute hypoxic respiratory failure Possible aspiration pneumonia 09/10 alert, oriented x 1 afebrile, on room air continue Ertapenem IV Dysphagia 09/10 s/p EGD: unremarkable Speech Therapist recommending minced/moist diet tolerating well so far monitor (2) Alzheimer's dementia: History of Alzheimer's dementia - one to one observation - PRN Zyprexa ordered for agitation (3) BPH (benign prostatic hyperplasia): -madrigal placed by urology service on 09/06/2020 while under ICU level of care (4) Aortic stenosis: -history of severe aortic stenosis, last echo 07/2020 ([facility]) History of Hypertension -on IV metoprolol Type 2 diabetes mellitus -monitor blood sugars. sliding scale insulin as needed Full Code Status on admission Admission and Anticipated Discharge Date Admission Date: September 06, 2020 Subjective ff up for aspiration, etc seen s/p EGD per RN, patient somewhat agitated earlier, improved now seen resting in bed, comfortable, sitting up calm, cooperative, occasionally distracted easily oriented x 1 states he feels fine overall no chest pain, dyspnea, abdominal pain, cough states he would like some dinner no other symptoms Review of Systems Review of Systems: All systems reviewed & are unremarkable except as noted in Subjective Physical Exam Physical Exam: General- oriented x 1, not in distress, speaks in sentences with no effort or accessory muscle use Eyes- anicteric Neck- no JVD Lungs- clear breath sounds bilaterally, no rales/wheezes Heart- normal rate, regular rhythm; no murmurs Abdomen- normal bowel sounds, nondistended, soft, nontender Extremities- no pretibial edema, no calf tenderness Neuro- alert, oriented x 1; no gross focal neurologic deficits Skin- warm & dry Results & Data Results & Data ([facility] [place]) Vital Signs (Past 12 Hours) Vital Signs Temp Pulse Pulse Pulse Resp BP BP 09/10/20 16:47 36.8 C 64 20 09/10/20 16:30 57 L 09/10/20 15:48 36.8 C 61 20 09/10/20 14:50 37 C 58 L 20 09/10/20 14:20 36.8 C 54 L 18 09/10/20 13:54 67 124/57 L 09/10/20 13:50 36 C L 62 18 09/10/20 13:20 36.8 C 64 18 09/10/20 13:05 36.6 C 69 18 09/10/20 12:45 36.6 C 63 13 09/10/20 12:35 59 L 17 09/10/20 12:25 67 16 09/10/20 12:15 58 L 16 09/10/20 12:09 36.0 C L 58 L 12 09/10/20 11:14 36.5 C 57 L 18 146/64 H 09/10/20 11:13 36.5 C 57 L 18 BP Pulse Ox 09/10/20 16:47 154/69 H 97 09/10/20 16:30 09/10/20 15:48 129/79 95 09/10/20 14:50 141/58 H 97 09/10/20 14:20 124/59 L 95 09/10/20 13:54 09/10/20 13:50 143/65 H 95 09/10/20 13:20 124/57 L 94 09/10/20 13:05 139/77 96 09/10/20 12:45 120/58 L 99 09/10/20 12:35 101/59 L 98 09/10/20 12:25 96/51 L 100 09/10/20 12:15 116/56 L 99 09/10/20 12:09 111/48 L 99 09/10/20 11:14 98 09/10/20 11:13 163/70 H 98 Laboratory Results Laboratory Results - last 24 hr 09/10/20 09/10/20 09/10/20 05:35 05:35 11:01 WBC 7.64 RBC 3.85 L Hgb 12.1 L Hct 36.0 L MCV 93.5 MCH 31.4 MCHC 33.6 RDW Std Deviation 43.6 RDW Coeff of Ailyn 12.7 Plt Count 185 MPV 9.7 Immature Gran % (Auto) 0.1 Neut % (Auto) 69.0 Lymph % (Auto) 14.8 [place] % (Auto) 13.5 Eos % (Auto) 2.5 Baso % (Auto) 0.1 Neut # (Auto) 5.27 Lymph # (Auto) 1.13 L [place] # (Auto) 1.03 H Eos # (Auto) 0.19 Baso # (Auto) 0.01 Immature Gran # (Auto) 0.01 Sodium 137 Potassium 3.6 Chloride 106 Carbon Dioxide 28 Anion Gap 3.0 BUN 18 Creatinine 0.73 Est Cr Clr Drug Dosing 69.2 Est GFR ( Amer) 98.0 Est GFR (Non-Af Amer) 84.6 BUN/Creatinine Ratio 24.4 H Glucose 106 H POC Glucose 99 Calcium 8.4 L Total Bilirubin 0.7 AST 26 ALT 23 Alkaline Phosphatase 89 Total Protein 6.1 L Albumin 2.8 L Globulin 3.3 Albumin/Globulin Ratio 0.8 L 09/10/20 09/10/20 16:02 20:05 WBC RBC Hgb Hct MCV MCH MCHC RDW Std Deviation RDW Coeff of Aliyn Plt Count MPV Immature Gran % (Auto) Neut % (Auto) Lymph % (Auto) [place] % (Auto) Eos % (Auto) Baso % (Auto) Neut # (Auto) Lymph # (Auto) [place] # (Auto) Eos # (Auto) Baso # (Auto) Immature Gran # (Auto) Sodium Potassium Chloride Carbon Dioxide Anion Gap BUN Creatinine Est Cr Clr Drug Dosing Est GFR ( Amer) Est GFR (Non-Af Amer) BUN/Creatinine Ratio Glucose POC Glucose 91 110 H Calcium Total Bilirubin AST ALT Alkaline Phosphatase Total Protein Albumin Globulin Albumin/Globulin Ratio (1) Aortic stenosis Cardiac valve disease etiology: nonrheumatic Qualified Code(s): I35.0 - Nonrheumatic aortic (valve) stenosis (2) Aspiration into airway Encounter type: initial encounter Qualified Code(s): T17.908A - Unspecified foreign body in respiratory tract, part unspecified causing other injury, initial encounter
[2020-09-11] MEDS: METOPROLOL TARTRATE 1 MG/ML VIAL IV SCH (05:11)
[2020-09-11] MEDS: NITROGLYCERIN 2% OINTMENT 30GM TUBE EXT SCH (05:33)
[2020-09-11] MEDS: ERTAPENEM SODIUM 1,000 MG in SODIUM CHLORIDE 0.9% 50 ML IV SCH (08:04)
[2020-09-11] MEDS: INSULIN ASPART 100 UNITS/ML 3 ML PEN SC SCH ×4 (08:13→22:05)
[2020-09-11] MEDS: amLODIPine BESYLATE 5 MG TAB PO SCH (10:14)
[2020-09-11] MEDS: PANTOprazole 40 MG in SYRINGE 0 ML IV SCH (10:14)
[2020-09-11] MEDS: FINASTERIDE 5 MG TAB PO SCH (10:15)
[2020-09-11] MEDS: lisinopril 40 MG TAB PO SCH (16:29)
--- NOTE | 2020-09-11 16:38 | Cardiology Progress Note ---
Date of Service September 11, 2020 Assessment & Plan (1) PSVT (paroxysmal supraventricular tachycardia): (2) Aspiration into airway: (3) Unresponsive: (4) Aortic stenosis: Transition to metoprolol tartrate 12.5 mg twice daily. Resume amlodipine and lisinopril. No further inpatient cardiac evaluation or intervention. Cardiology will sign off. Please call with questions. Admission and Anticipated Discharge Date Admission Date: September 06, 2020 Subjective Patient seen and examined the bedside. Poor historian. Offers no complaints. EGD performed without complication. No esophageal abnormalities reported. Telemetry reveals isolated liborio of paroxysmal supraventricular tachycardia 09/10/2020. Review of Systems Review of Systems: Unobtainable due to cognitive status Physical Exam Constitutional: well nourished; no acute distress and not ill appearing Respiratory: Auscultation: + rhonchi (Scattered); no crackles, no rales and no wheezes Cardiovascular: Heart Sounds: normal S1 and + murmur (3/6 systolic ejection murmur heard best at the cardiac base); + abnormal S2 (Diminished) and no cardiac rub Vessels: no JVD and no carotid bruit Extremities: no edema Gastrointestinal (Abdomen): Inspection/Auscultation: abdomen normal to inspection and normal bowel sounds; abdomen not distended Percussion/Palpation: abdomen soft; abdomen nontender, no guarding and abdomen not rigid Skin: no rashes, warm and dry Neurologic: moves all extremities; no focal motor deficits Motor/Sensory: no tremor Psychiatric: Orientation: oriented to person and cooperative Insight: + poor insight Results & Data ([facility]) Vital Signs (Past 12 Hours) Vital Signs Temp Pulse Pulse Resp BP Pulse Ox 09/11/20 15:16 36.6 C 68 20 153/73 H 95 09/11/20 11:06 36.5 C 75 20 169/66 H 96 09/11/20 07:26 37.1 C 51 L 18 136/77 96 09/11/20 05:11 51 L 09/11/20 04:30 37.4 C 60 16 142/71 H 97 (1) Aspiration into airway Encounter type: initial encounter Qualified Code(s): T17.908A - Unspecified foreign body in respiratory tract, part unspecified causing other injury, initial encounter (2) Aortic stenosis Cardiac valve disease etiology: nonrheumatic Qualified Code(s): I35.0 - Nonrheumatic aortic (valve) stenosis
[2020-09-11] MEDS: METOPROLOL TARTRATE 25 MG TAB PO SCH (20:31)
--- NOTE | 2020-09-11 20:35 | Hospitalist Progress Note ---
Date of Service September 11, 2020 Assessment & Plan (1) Aspiration into airway: Unresponsiveness at home likely due to aspiration Acute hypoxic respiratory failure Possible aspiration pneumonia -as per ED notes "This is an 85-year-old male brought in from home via EMS due to a sudden change in mental status leading to unresponsiveness witnessed by the . The reported to EMS he had been having difficulty swallowing for 3 days, this evening suddenly appeared to be choking or gagging and then went unresponsive in front of her. She noted he did not appear to be breathing so she started doing CPR and called 911. On EMS arrival patient had a pulse and was hypertensive although had agonal respirations. They inserted an OPA without difficulty and began bagging the patient. denies any prior GI history. Stated he does have a history of dementia but has been fairly active and independent otherwise. No recent illness or change in medications. They did call for medical command for orders for etomidate in order to secure the patient's airway as even with bagging and improving oxygenation he continued to be unresponsive. Patient was intubated by EMS prior to arrival with a 7.5 ET tube. EMS did note that while they had a clear visualization of the airway there appeared to be emesis in the posterior oropharynx that required suctioning. No blood was noted. No other evidence of airway edema or foreign body. Patient given Versed 7.5 mg and fentanyl 150 mcg post intubation for sedation in route. There was additional emesis that required in line suctioning. Patient's blood pressure was improved upon arrival here, patient being bagged easily, and was still unresponsive." -admission CTA: No pulmonary emboli identified, Multifocal groundglass opacities within the lungs which favor an infectious process or sequela of aspiration, Moderately distended debris-filled esophagus. -he was given initially Zosyn and Ertapenem, currently on Ertapenem alone since the day time of 09/06/2020, can continue for now -Patient was extubated on 09/06/2020, currently on room air oxygen 09/11 alert, oriented x 1 afebrile, saturating well on room air Has already received 5 days of ertapenem IV Moderate to severe dysphagia -09/07/2020 ICU physician expressed concerns of overall prognosis of the patient despite recent extubation because of history of dysphagia. -09/08/2020 speech therapist informed hospitalist that patient is not outright choking based on the video swallow study but the risk of aspiration in future is still present because patient is impulsive with eating the food. hospitalist accepted recommendations from speech therapist that with an oral diet, the patient will have to be closely supervised and this has been done by nursing staff s/p EGD: unremarkable GI service does not recommend PEG tube placement at this point Speech Therapist recommending minced/moist diet, strict aspiration precautions tolerating well so far Informed RN to have patient be supervised with his meals at all times (2) Alzheimer's dementia: History of Alzheimer's dementia - one to one observation - PRN Zyprexa ordered for agitation (3) BPH (benign prostatic hyperplasia): -madrigal placed by urology service on 09/06/2020 while under ICU level of care - per Urologist: Leave catheter indwelling for 1 week or can remove this Tuesday. Remove only if patient able to stand to void. Start finasteride for possible BPH. (4) Aortic stenosis: -history of severe aortic stenosis, last echo 07/2020 ([facility]) PSVT (paroxysmal supraventricular tachycardia) -09/08/2020 Patient noted to have run of SVT and cardiology was consulted Given IV metoprolol while n.p.o. -no SVT since yesterday -Transition to metoprolol to 12.5 mg twice daily History of Hypertension -Resume lisinopril and amlodipine Type 2 diabetes mellitus -monitor blood sugars. sliding scale insulin as needed Full Code Status on admission Disposition [facility] when accepted Admission and Anticipated Discharge Date Admission Date: September 06, 2020 Subjective Follow-up for aspiration, dysphagia, etc. Seen sitting up in bed, with new magazine, calm, cooperative Oriented to person and place, but usually becomes confused and repetitive Denies chest pain, shortness of breath, palpitations, dizziness abdominal pain, nausea vomiting Per RN, patient was observed to be eating very fast manner, patient directed to eat more slowly and has been supervised with his meals No other symptoms Review of Systems Review of Systems: All systems reviewed & are unremarkable except as noted in Subjective Physical Exam Physical Exam: General- oriented x 1-2, not in distress, speaks in sentences with no effort or accessory muscle use Eyes- anicteric Neck- no JVD Lungs- clear breath sounds bilaterally Heart- normal rate, regular rhythm; positive grade 4/6 holosystolic murmur Abdomen- normal bowel sounds, nondistended, soft, nontender Extremities- no pretibial edema, no calf tenderness Neuro- alert, oriented x 1-2; no gross focal neurologic deficits Skin- warm & dry Results & Data Results & Data ([facility]) Vital Signs (Past 12 Hours) Vital Signs Temp Pulse Resp BP Pulse Ox 09/11/20 19:14 37.1 C 78 21 152/72 H 97 09/11/20 15:16 36.6 C 68 20 153/73 H 95 09/11/20 11:06 36.5 C 75 20 169/66 H 96 (1) Aspiration into airway Encounter type: initial encounter Qualified Code(s): T17.908A - Unspecified foreign body in respiratory tract, part unspecified causing other injury, initial encounter (2) Aortic stenosis Cardiac valve disease etiology: nonrheumatic Qualified Code(s): I35.0 - Nonrheumatic aortic (valve) stenosis
[2020-09-12] MEDS: lisinopril 40 MG TAB PO SCH (08:23)
[2020-09-12] MEDS: METOPROLOL TARTRATE 25 MG TAB PO SCH ×2 (08:23→22:05)
[2020-09-12] MEDS: amLODIPine BESYLATE 5 MG TAB PO SCH (08:24)
[2020-09-12] MEDS: FINASTERIDE 5 MG TAB PO SCH (08:24)
[2020-09-12] MEDS: INSULIN ASPART 100 UNITS/ML 3 ML PEN SC SCH ×4 (08:29→22:34)
--- NOTE | 2020-09-12 17:47 | Hospitalist Progress Note ---
Date of Service September 12, 2020 Assessment & Plan (1) Aspiration into airway: Unresponsiveness at home likely due to aspiration Acute hypoxic respiratory failure Possible aspiration pneumonia -as per ED notes "This is an 85-year-old male brought in from home via EMS due to a sudden change in mental status leading to unresponsiveness witnessed by the . The reported to EMS he had been having difficulty swallowing for 3 days, this evening suddenly appeared to be choking or gagging and then went unresponsive in front of her. She noted he did not appear to be breathing so she started doing CPR and called 911. On EMS arrival patient had a pulse and was hypertensive although had agonal respirations. They inserted an OPA without difficulty and began bagging the patient. denies any prior GI history. Stated he does have a history of dementia but has been fairly active and independent otherwise. No recent illness or change in medications. They did call for medical command for orders for etomidate in order to secure the patient's airway as even with bagging and improving oxygenation he continued to be unresponsive. Patient was intubated by EMS prior to arrival with a 7.5 ET tube. EMS did note that while they had a clear visualization of the airway there appeared to be emesis in the posterior oropharynx that required suctioning. No blood was noted. No other evidence of airway edema or foreign body. Patient given Versed 7.5 mg and fentanyl 150 mcg post intubation for sedation in route. There was additional emesis that required in line suctioning. Patient's blood pressure was improved upon arrival here, patient being bagged easily, and was still unresponsive." -admission CTA: No pulmonary emboli identified, Multifocal groundglass opacities within the lungs which favor an infectious process or sequela of aspiration, Moderately distended debris-filled esophagus. -he was given initially Zosyn and Ertapenem, currently on Ertapenem alone since the day time of 09/06/2020, can continue for now -Patient was extubated on 09/06/2020, currently on room air oxygen 09/12/19 alert, oriented x 2 afebrile, saturating well on room air Has already received 5 days of ertapenem IV Stable overall Moderate to severe dysphagia -09/07/2020 ICU physician expressed concerns of overall prognosis of the patient despite recent extubation because of history of dysphagia. -09/08/2020 speech therapist informed hospitalist that patient is not outright choking based on the video swallow study but the risk of aspiration in future is still present because patient is impulsive with eating the food. hospitalist accepted recommendations from speech therapist that with an oral diet, the patient will have to be closely supervised and this has been done by nursing staff s/p EGD: unremarkable GI service does not recommend PEG tube placement at this point Speech Therapist recommending minced/moist diet, strict aspiration precautions tolerating well so far Informed RN to have patient be supervised with his meals at all times (2) Alzheimer's dementia: History of Alzheimer's dementia - one to one observation - PRN Zyprexa ordered for agitation - Calm and cooperative (3) BPH (benign prostatic hyperplasia): -madrigal placed by urology service on 09/06/2020 while under ICU level of care - per Urologist: Leave catheter indwelling for 1 week or can remove this Tuesday. Remove only if patient able to stand to void. Start finasteride for possible BPH. (4) Aortic stenosis: -history of severe aortic stenosis, last echo 07/2020 ([facility]) PSVT (paroxysmal supraventricular tachycardia) -09/08/2020 Patient noted to have run of SVT and cardiology was consulted Given IV metoprolol while n.p.o. -no SVT since -Transition to metoprolol to 12.5 mg twice daily History of Hypertension -lisinopril and amlodipine Type 2 diabetes mellitus -monitor blood sugars -sliding scale insulin as needed Full Code Status on admission Disposition [facility] when accepted Admission and Anticipated Discharge Date Admission Date: September 06, 2020 Subjective Follow-up for aspiration pneumonia, dysphagia, etc. Seen sitting up in bed, comfortable, not in distress, in good spirits, conversant States he feels fine overall Denies problems with swallowing today, no chest pain, shortness of breath, palpitations, dizziness, headache, abdominal pain, nausea Per RN, patient tolerating diet well today no signs of aspiration Denies other symptoms Review of Systems Review of Systems: All systems reviewed & are unremarkable except as noted in Subjective Physical Exam Physical Exam: General- oriented x 2, not in distress, speaks in sentences with no effort or accessory muscle use Eyes- anicteric Neck- no JVD Lungs-mild rhonchi at the right base, clear on the left, no wheezing noted Heart- normal rate, regular rhythm; grade 4 out of 6 systolic murmur Abdomen- normal bowel sounds, nondistended, soft, nontender Extremities- no pretibial edema, no calf tenderness Neuro- alert, oriented x 2; no gross focal neurologic deficits Skin- warm & dry Results & Data Results & Data ([facility]) Vital Signs (Past 12 Hours) Vital Signs Temp Pulse Pulse Resp BP BP Pulse Ox 09/12/20 15:18 36.7 C 68 20 177/61 H 94 09/12/20 14:57 66 09/12/20 11:00 37.4 C 58 L 18 127/58 L 94 09/12/20 09:09 64 09/12/20 07:51 37.0 C 64 18 182/65 H 95 (1) Aspiration into airway Encounter type: initial encounter Qualified Code(s): T17.908A - Unspecified foreign body in respiratory tract, part unspecified causing other injury, initial encounter (2) Aortic stenosis Cardiac valve disease etiology: nonrheumatic Qualified Code(s): I35.0 - Nonrheumatic aortic (valve) stenosis
[2020-09-13] MEDS: lisinopril 40 MG TAB PO SCH (08:25)
[2020-09-13] MEDS: amLODIPine BESYLATE 5 MG TAB PO SCH (08:25)
[2020-09-13] MEDS: METOPROLOL TARTRATE 25 MG TAB PO SCH ×2 (08:25→20:37)
[2020-09-13] MEDS: FINASTERIDE 5 MG TAB PO SCH (08:25)
[2020-09-13] MEDS: INSULIN ASPART 100 UNITS/ML 3 ML PEN SC SCH ×4 (08:27→20:17)
--- NOTE | 2020-09-13 11:58 | XRay Report ---
SINGLE VIEW CHEST CLINICAL HISTORY: Aspiration pneumonia. FINDINGS: An AP, portable, upright chest radiograph is compared to chest x-ray and chest CT dated . The examination is degraded by portable technique and patient rotation. The heart is enlar ged noting atherosclerotic calcification of the thoracic aorta. The mitral annulus is densely calcifi ed. The pulmonary vasculature is noncongested. Airspace consolidation is noted at the left lung base. Minimal opacities are seen at the right lung base. Small pleural effusions are noted. No pneumothora x is seen. The skeletal structures are osteopenic. The bony thorax is grossly intact. Advanced arthri tic change is noted in the right shoulder. IMPRESSION: 1. Cardiomegaly without radiographic evidence of congestive failure. 2. There is left basilar consolidation with mild opacities also seen at the right lung base. 3. Small pleural effusions. ACT 112: Negative or not required by law. Electronically signed by: Mart Mclean M.D. 09/13/2020 11:57 AM
--- NOTE | 2020-09-13 17:17 | Hospitalist Progress Note ---
Date of Service September 13, 2020 Assessment & Plan (1) Aspiration into airway: Unresponsiveness at home likely due to aspiration Acute hypoxic respiratory failure Possible aspiration pneumonia -as per ED notes "This is an 85-year-old male brought in from home via EMS due to a sudden change in mental status leading to unresponsiveness witnessed by the . The reported to EMS he had been having difficulty swallowing for 3 days, this evening suddenly appeared to be choking or gagging and then went unresponsive in front of her. She noted he did not appear to be breathing so she started doing CPR and called 911. On EMS arrival patient had a pulse and was hypertensive although had agonal respirations. They inserted an OPA without difficulty and began bagging the patient. denies any prior GI history. Stated he does have a history of dementia but has been fairly active and independent otherwise. No recent illness or change in medications. They did call for medical command for orders for etomidate in order to secure the patient's airway as even with bagging and improving oxygenation he continued to be unresponsive. Patient was intubated by EMS prior to arrival with a 7.5 ET tube. EMS did note that while they had a clear visualization of the airway there appeared to be emesis in the posterior oropharynx that required suctioning. No blood was noted. No other evidence of airway edema or foreign body. Patient given Versed 7.5 mg and fentanyl 150 mcg post intubation for sedation in route. There was additional emesis that required in line suctioning. Patient's blood pressure was improved upon arrival here, patient being bagged easily, and was still unresponsive." -admission CTA: No pulmonary emboli identified, Multifocal groundglass opacities within the lungs which favor an infectious process or sequela of aspiration, Moderately distended debris-filled esophagus. -he was given initially Zosyn and Ertapenem, currently on Ertapenem alone since the day time of 09/06/2020, can continue for now -Patient was extubated on 09/06/2020, currently on room air oxygen 09/12/19 alert, oriented x 2 afebrile, saturating well on room air Has already received 5 days of ertapenem IV Stable overall Moderate to severe dysphagia -09/07/2020 ICU physician expressed concerns of overall prognosis of the patient despite recent extubation because of history of dysphagia. -09/08/2020 speech therapist informed hospitalist that patient is not outright choking based on the video swallow study but the risk of aspiration in future is still present because patient is impulsive with eating the food. hospitalist accepted recommendations from speech therapist that with an oral diet, the patient will have to be closely supervised and this has been done by nursing staff s/p EGD: unremarkable GI service does not recommend PEG tube placement at this point Speech Therapist recommending minced/moist diet, strict aspiration precautions tolerating well so far Informed RN to have patient be supervised with his meals at all times (2) Alzheimer's dementia: History of Alzheimer's dementia - one to one observation - PRN Zyprexa ordered for agitation - Calm and cooperative (3) BPH (benign prostatic hyperplasia): -madrigal placed by urology service on 09/06/2020 while under ICU level of care - per Urologist: Leave catheter indwelling for 1 week or can remove this Tuesday. Remove only if patient able to stand to void. Start finasteride for possible BPH. (4) Aortic stenosis: -history of severe aortic stenosis, last echo 07/2020 ([facility]) PSVT (paroxysmal supraventricular tachycardia) -09/08/2020 Patient noted to have run of SVT and cardiology was consulted Given IV metoprolol while n.p.o. -no SVT since -Transition to metoprolol to 12.5 mg twice daily History of Hypertension -lisinopril and amlodipine Type 2 diabetes mellitus -monitor blood sugars -sliding scale insulin as needed Full Code Status on admission Disposition [facility] when accepted Admission and Anticipated Discharge Date Admission Date: September 06, 2020 Results & Data Results & Data ([facility]) Vital Signs (Past 12 Hours) Vital Signs Temp Pulse Pulse Resp BP Pulse Ox 09/13/20 14:20 66 09/13/20 10:59 36.6 C 57 L 18 145/73 H 97 09/13/20 07:23 36.7 C 58 L 16 123/65 94 09/13/20 07:00 64 (1) Aspiration into airway Encounter type: initial encounter Qualified Code(s): T17.908A - Unspecified foreign body in respiratory tract, part unspecified causing other injury, initial encounter (2) Aortic stenosis Cardiac valve disease etiology: nonrheumatic Qualified Code(s): I35.0 - Nonrheumatic aortic (valve) stenosis
[2020-09-13] MEDS ORDERED: ACETAMINOPHEN 325 MG TAB PO PRN (20:22)
[2020-09-13 21:02] LABS: Basophils # (auto) 0.04 K/uL (0-0.2); Basophils % (auto) 0.4 %; Eosinophils # (auto) 0.11 K/uL (0-0.5); Eosinophils % (auto) 1.1 %; Hematocrit (blood only) 38.3 % (42-52); Hemoglobin 12.6 g/dL (14.0-18.0); Immature Granulocytes # (auto) 0.04 K/uL (0.00-0.02); Immature Granulocytes % (auto) 0.4 %; Lymphocytes # (auto) 1.31 K/uL (1.2-3.4); Lymphocytes % (auto) 13.3 %; Mean Corpuscular Hgb Conc 32.9 g/dL (32-36); Mean Corpuscular Volume 94.3 fL (80-100); Mean Platelet Volume 9.2 fL (7.4-10.4); Monocytes # (auto) 1.23 K/uL (0.11-0.59); Monocytes % (auto) 12.5 %; Neutrophils % (auto) 72.3 %; Platelet Count 239 K/uL (130-400); RDW Coefficient of Variation 12.5 % (11.5-14.5); RDW Standard Deviation 42.9 fL (36.4-46.3); Red Blood Count 4.06 M/uL (4.7-6.1); White Blood Count 9.83 K/uL (4.8-10.8)
[2020-09-13 21:22] LABS: Albumin Level 2.7 gm/dl (3.4-5.0); BUN Creatinine Ratio 22.1 (10-20); Calcium 8.5 mg/dl (8.5-10.1); Creatinine Clr Calc Pharmacy 52.6 ml/min; Est GFR (African American) 83.2; Est GFR (Non-African American) 71.8; Magnesium 2.2 mg/dl (1.8-2.4); Potassium 4.2 mmol/L (3.5-5.1)
[2020-09-13 21:25] LABS: Albumin Globulin Ratio 0.7 (0.9-2); Bilirubin,Total 0.7 mg/dl (0.2-1); Globulin 3.9 gm/dl (2.5-4.0); Total Protein 6.6 gm/dl (6.4-8.2)
[2020-09-13 21:27] LABS: Appearance Urine Clear (Clear); Bacteria Urine Automated Negative (Negative); Bilirubin Urine Negative (Negative); Blood Urine 3+ (Negative); Color Urine Yellow; Epithelial Cell Urine Auto 0-5 /lpf (0-5); Glucose Urine UA Negative (Negative); Ketones Urine Negative (Negative); Leukocyte Esterase Urine 1+ (Negative); Nitrite Urine Negative (Negative); Protein Urine 1+ (Negative); RBC Urine Automated >30 /hpf (0-4); Specific Gravity Urine 1.018 (1.000-1.030); Urobilinogen Urine Negative (Negative)
--- NOTE | 2020-09-13 21:32 | Communication Note ---
Date of Service: September 13, 2020 Made aware by RN of temperature elevation and persistent cough symptoms. CXR (09/13 AM) 1. Cardiomegaly without radiographic evidence of congestive failure. 2. There is left basilar consolidation with mild opacities also seen at the right lung base. 3. Small pleural effusions. AP Persistent aspiration pneumonia Reinitiate Ertapenem. Will relay to AM provider.
[2020-09-13] MEDS ORDERED: SODIUM CHLORIDE 0.9% 1000ML 1,000 ML IV ONE (21:33)
[2020-09-13] MEDS ORDERED: ERTAPENEM SODIUM 1,000 MG in SODIUM CHLORIDE 0.9% 50 ML IV STA (21:37)
[2020-09-13] MEDS ORDERED: ERTAPENEM CONSULT ACTIVE PRN (21:38)
--- NOTE | 2020-09-13 22:07 | Hospitalist Progress Note ---
Date of Service September 13, 2020 Assessment & Plan (1) Dysphagia: (1) Aspiration into airway: Unresponsiveness at home likely due to aspiration Acute hypoxic respiratory failure Possible aspiration pneumonia -as per ED notes "This is an 85-year-old male brought in from home via EMS due to a sudden change in mental status leading to unresponsiveness witnessed by the . The reported to EMS he had been having difficulty swallowing for 3 days, this evening suddenly appeared to be choking or gagging and then went unresponsive in front of her. She noted he did not appear to be breathing so she started doing CPR and called 911. On EMS arrival patient had a pulse and was hypertensive although had agonal respirations. They inserted an OPA without difficulty and began bagging the patient. denies any prior GI history. Stated he does have a history of dementia but has been fairly active and independent otherwise. No recent illness or change in medications. They did call for medical command for orders for etomidate in order to secure the patient's airway as even with bagging and improving oxygenation he continued to be unresponsive. Patient was intubated by EMS prior to arrival with a 7.5 ET tube. EMS did note that while they had a clear visualization of the airway there appeared to be emesis in the posterior oropharynx that required suctioning. No blood was noted. No other evidence of airway edema or foreign body. Patient given Versed 7.5 mg and fentanyl 150 mcg post intubation for sedation in route. There was additional emesis that required in line suctioning. Patient's blood pressure was improved upon arrival here, patient being bagged easily, and was still unresponsive." -admission CTA: No pulmonary emboli identified, Multifocal groundglass opacities within the lungs which favor an infectious process or sequela of aspiration, Moderately distended debris-filled esophagus. -he was given initially Zosyn and Ertapenem, currently on Ertapenem alone since the day time of 09/06/2020, can continue for now -Patient was extubated on 09/06/2020, currently on room air oxygen 09/13/19 alert, oriented x 2 afebrile, saturating well on room air Has already received 5 days of ertapenem IV (+) aspiration signs noted this morning repeat CXR bibasilar infiltrates Speech Tx re-consulted, recommend to continue present diet- strict aspirations precaution permissive aspiration discussed with patiet's to preserve quality of life, agreeable with plan of care Moderate to severe dysphagia -09/07/2020 ICU physician expressed concerns of overall prognosis of the patient despite recent extubation because of history of dysphagia. -09/08/2020 speech therapist informed hospitalist that patient is not outright choking based on the video swallow study but the risk of aspiration in future is still present because patient is impulsive with eating the food. hospitalist accepted recommendations from speech therapist that with an oral diet, the patient will have to be closely supervised and this has been done by nursing staff s/p EGD: unremarkable GI service does not recommend PEG tube placement at this point Speech Therapist recommending minced/moist diet, strict aspiration precautions per above Informed RN to have patient be supervised with his meals at all times (2) Alzheimer's dementia: History of Alzheimer's dementia - one to one observation - PRN Zyprexa ordered for agitation - Calm and cooperative (3) BPH (benign prostatic hyperplasia): -madrigal placed by urology service on 09/06/2020 while under ICU level of care - per Urologist: Leave catheter indwelling for 1 week or can remove this Tuesday. Remove only if patient able to stand to void. Start finasteride for possible BPH. (4) Aortic stenosis: -history of severe aortic stenosis, last echo 07/2020 ([facility]) PSVT (paroxysmal supraventricular tachycardia) -09/08/2020 Patient noted to have run of SVT and cardiology was consulted Given IV metoprolol while n.p.o. -no SVT since -Transition to metoprolol to 12.5 mg twice daily History of Hypertension -lisinopril and amlodipine Type 2 diabetes mellitus -monitor blood sugars -sliding scale insulin as needed Full Code Status on admission Disposition awaiting acceptance to [facility] Admission and Anticipated Discharge Date Admission Date: September 06, 2020 Subjective ff up for aspiration, etc seen sitting up in bed, not in distress alert, oriented x 2, but mostly repetitive states he feels fine, no SOB, chest pain noted to have some signs of aspiration this morning no other symptoms Review of Systems Review of Systems: All systems reviewed & are unremarkable except as noted in Subjective Physical Exam Physical Exam: General- oriented x 1-2, not in distress, speaks in sentences with no effort or accessory muscle use Eyes- anicteric Neck- no JVD Lungs- (+) crackles, bilateral bases Heart- normal rate, regular rhythm; no murmurs Abdomen- normal bowel sounds, nondistended, soft, nontender Extremities- no pretibial edema, no calf tenderness Neuro- alert, oriented x 1-2; no gross focal neurologic deficits Skin- warm & dry Results & Data Results & Data ([facility]) Vital Signs (Past 12 Hours) Vital Signs Temp Pulse Pulse Resp BP Pulse Ox 09/13/20 20:05 37.6 C H 77 20 160/67 H 97 09/13/20 19:00 37.8 C H 77 20 183/80 H 98 09/13/20 14:20 66 09/13/20 10:59 36.6 C 57 L 18 145/73 H 97 Laboratory Results Laboratory Results - last 24 hr 09/13/20 09/13/20 09/13/20 07:53 11:34 16:30 WBC RBC Hgb Hct MCV MCH MCHC RDW Std Deviation RDW Coeff of Ailyn Plt Count MPV Immature Gran % (Auto) Neut % (Auto) Lymph % (Auto) Gray % (Auto) Eos % (Auto) Baso % (Auto) Neut # (Auto) Lymph # (Auto) Gray # (Auto) Eos # (Auto) Baso # (Auto) Immature Gran # (Auto) Sodium Potassium Chloride Carbon Dioxide Anion Gap BUN Creatinine Est Cr Clr Drug Dosing Est GFR ( Amer) Est GFR (Non-Af Amer) BUN/Creatinine Ratio Glucose POC Glucose 110 H 91 107 H Calcium Magnesium Total Bilirubin AST ALT Alkaline Phosphatase Total Protein Albumin Globulin Albumin/Globulin Ratio Urine Color Urine Appearance Urine pH Ur Specific [place] Urine Protein Urine Glucose (UA) Urine Ketones Urine Blood Urine Nitrite Urine Bilirubin Urine Urobilinogen Ur Leukocyte Esterase Urine WBC (Auto) Urine RBC (Auto) U Hyaline Cast (Auto) U Epithel Cells (Auto) Urine Bacteria (Auto) 09/13/20 09/13/20 09/13/20 20:12 20:52 20:52 WBC 9.83 RBC 4.06 L Hgb 12.6 L Hct 38.3 L MCV 94.3 MCH 31.0 MCHC 32.9 RDW Std Deviation 42.9 RDW Coeff of Ailyn 12.5 Plt Count 239 MPV 9.2 Immature Gran % (Auto) 0.4 Neut % (Auto) 72.3 Lymph % (Auto) 13.3 Gray % (Auto) 12.5 Eos % (Auto) 1.1 Baso % (Auto) 0.4 Neut # (Auto) 7.10 H Lymph # (Auto) 1.31 Gray # (Auto) 1.23 H Eos # (Auto) 0.11 Baso # (Auto) 0.04 Immature Gran # (Auto) 0.04 H Sodium 135 L Potassium 4.2 Chloride 103 Carbon Dioxide 26 Anion Gap 6.0 BUN 21 H Creatinine 0.96 Est Cr Clr Drug Dosing 52.6 Est GFR ( Amer) 83.2 Est GFR (Non-Af Amer) 71.8 BUN/Creatinine Ratio 22.1 H Glucose 108 H POC Glucose 117 H Calcium 8.5 Magnesium 2.2 Total Bilirubin 0.7 AST 20 ALT 21 Alkaline Phosphatase 86 Total Protein 6.6 Albumin 2.7 L Globulin 3.9 Albumin/Globulin Ratio 0.7 L Urine Color Urine Appearance Urine pH Ur Specific [place] Urine Protein Urine Glucose (UA) Urine Ketones Urine Blood Urine Nitrite Urine Bilirubin Urine Urobilinogen Ur Leukocyte Esterase Urine WBC (Auto) Urine RBC (Auto) U Hyaline Cast (Auto) U Epithel Cells (Auto) Urine Bacteria (Auto) 09/13/20 21:14 WBC RBC Hgb Hct MCV MCH MCHC RDW Std Deviation RDW Coeff of Ailyn Plt Count MPV Immature Gran % (Auto) Neut % (Auto) Lymph % (Auto) Gray % (Auto) Eos % (Auto) Baso % (Auto) Neut # (Auto) Lymph # (Auto) Gray # (Auto) Eos # (Auto) Baso # (Auto) Immature Gran # (Auto) Sodium Potassium Chloride Carbon Dioxide Anion Gap BUN Creatinine Est Cr Clr Drug Dosing Est GFR ( Amer) Est GFR (Non-Af Amer) BUN/Creatinine Ratio Glucose POC Glucose Calcium Magnesium Total Bilirubin AST ALT Alkaline Phosphatase Total Protein Albumin Globulin Albumin/Globulin Ratio Urine Color Yellow Urine Appearance Clear Urine pH 6.0 Ur Specific [place] 1.018 Urine Protein 1+ H Urine Glucose (UA) Negative Urine Ketones Negative Urine Blood 3+ H Urine Nitrite Negative Urine Bilirubin Negative Urine Urobilinogen Negative Ur Leukocyte Esterase 1+ H Urine WBC (Auto) 1-5 Urine RBC (Auto) >30 H U Hyaline Cast (Auto) 1-5 U Epithel Cells (Auto) 0-5 Urine Bacteria (Auto) Negative
[2020-09-14] MEDS: INSULIN ASPART 100 UNITS/ML 3 ML PEN SC SCH ×4 (08:49→20:37)
[2020-09-14] MEDS: METOPROLOL TARTRATE 25 MG TAB PO SCH ×2 (09:11→20:36)
[2020-09-14] MEDS ORDERED: amLODIPine BESYLATE 5 MG TAB PO ONE (09:11)
[2020-09-14] MEDS: FINASTERIDE 5 MG TAB PO SCH (09:14)
[2020-09-14] MEDS: lisinopril 40 MG TAB PO SCH (09:14)
[2020-09-14] MEDS: amLODIPine BESYLATE 5 MG TAB PO SCH (09:14)
[2020-09-14] MEDS: CLINDAMYCIN 600 MG in DEXTROSE 5% 50 ML IV SCH ×2 (09:39→18:19)
--- NOTE | 2020-09-14 17:32 | Hospitalist Progress Note ---
Date of Service September 14, 2020 Assessment & Plan (1) Dysphagia: (1) Aspiration into airway: Unresponsiveness at home likely due to aspiration Acute hypoxic respiratory failure Possible aspiration pneumonia -as per ED notes "This is an 85-year-old male brought in from home via EMS due to a sudden change in mental status leading to unresponsiveness witnessed by the . The reported to EMS he had been having difficulty swallowing for 3 days, this evening suddenly appeared to be choking or gagging and then went unresponsive in front of her. She noted he did not appear to be breathing so she started doing CPR and called 911. On EMS arrival patient had a pulse and was hypertensive although had agonal respirations. They inserted an OPA without difficulty and began bagging the patient. denies any prior GI history. Stated he does have a history of dementia but has been fairly active and independent otherwise. No recent illness or change in medications. They did call for medical command for orders for etomidate in order to secure the patient's airway as even with bagging and improving oxygenation he continued to be unresponsive. Patient was intubated by EMS prior to arrival with a 7.5 ET tube. EMS did note that while they had a clear visualization of the airway there appeared to be emesis in the posterior oropharynx that required suctioning. No blood was noted. No other evidence of airway edema or foreign body. Patient given Versed 7.5 mg and fentanyl 150 mcg post intubation for sedation in route. There was additional emesis that required in line suctioning. Patient's blood pressure was improved upon arrival here, patient being bagged easily, and was still unresponsive." -admission CTA: No pulmonary emboli identified, Multifocal groundglass opacities within the lungs which favor an infectious process or sequela of aspiration, Moderately distended debris-filled esophagus. -he was given initially Zosyn and Ertapenem, currently on Ertapenem alone since the day time of 09/06/2020, can continue for now -Patient was extubated on 09/06/2020, currently on room air oxygen 09/14/19 alert, oriented x 2 afebrile, saturating well on room air Has already received 5 days of ertapenem IV (+) aspiration signs noted 09/13/19 repeat CXR bibasilar infiltrates Speech Tx re-consulted, recommend to continue present diet- strict aspirations precaution permissive aspiration discussed with patiet's to preserve quality of life, agreeable with plan of care started Clindamycin Day #1/5 monitor Moderate to severe dysphagia -09/07/2020 ICU physician expressed concerns of overall prognosis of the patient despite recent extubation because of history of dysphagia. -09/08/2020 speech therapist informed hospitalist that patient is not outright choking based on the video swallow study but the risk of aspiration in future is still present because patient is impulsive with eating the food. hospitalist accepted recommendations from speech therapist that with an oral diet, the patient will have to be closely supervised and this has been done by nursing staff s/p EGD: unremarkable GI service does not recommend PEG tube placement at this point Speech Therapist recommending minced/moist diet, strict aspiration precautions per above Informed RN to have patient be supervised with his meals at all times -- will discuss with Speech Tx and GI again tomorrow (2) Alzheimer's dementia: History of Alzheimer's dementia - one to one observation - PRN Zyprexa ordered for agitation - Calm and cooperative (3) BPH (benign prostatic hyperplasia): -madrigal placed by urology service on 09/06/2020 while under ICU level of care - per Urologist: Leave catheter indwelling for 1 week or can remove this Tuesday. Remove only if patient able to stand to void. Start finasteride for possible BPH. - remove Madrigal Cath (4) Aortic stenosis: -history of severe aortic stenosis, last echo 07/2020 ([facility]) (5) PSVT (paroxysmal supraventricular tachycardia) -09/08/2020 Patient noted to have run of SVT and cardiology was consulted Given IV metoprolol while n.p.o. -no SVT since -Transition to metoprolol to 12.5 mg twice daily (6) History of Hypertension - lisinopril and amlodipine - increase Amlodipine 10mg po daily (7) Type 2 diabetes mellitus - monitor blood sugars - sliding scale insulin as needed Full Code Status - on admission Disposition - awaiting acceptance to [facility] Admission and Anticipated Discharge Date Admission Date: September 06, 2020 Subjective Follow-up for aspiration pneumonia, severe dysphagia etc. Seen resting in bed, comfortable, not in distress, sitting up Oriented X2 but occasionally gets confused and repetitive Per [employer], patient had some mild coughing with breakfast today Patient denies having redness of breath, cough, chills No other symptoms Review of Systems Review of Systems: All systems reviewed & are unremarkable except as noted in Subjective Physical Exam Physical Exam: General- oriented x 2 not in distress, speaks in sentences with no effort or accessory muscle use Eyes- anicteric Neck- no JVD Lungs-faint rales at the bases, no wheezing, good air entry bilaterally Heart- normal rate, regular rhythm; no murmurs Abdomen- normal bowel sounds, nondistended, soft, nontender Extremities- no pretibial edema, no calf tenderness Neuro- alert, oriented x 2; no gross focal neurologic deficits Skin- warm & dry Results & Data Results & Data ([facility]) Vital Signs (Past 12 Hours) Vital Signs Temp Pulse Pulse Resp BP Pulse Ox 09/14/20 16:32 56 L 09/14/20 14:59 37.3 C 57 L 18 137/62 97 09/14/20 10:58 36.9 C 54 L 18 119/57 L 95 09/14/20 07:33 37.1 C 60 18 166/68 H 94 09/14/20 07:00 57 L
[2020-09-14] MEDS ORDERED: ERTAPENEM SODIUM 1,000 MG in SODIUM CHLORIDE 0.9% 50 ML IV SCH (22:00)
[2020-09-15] MEDS: CLINDAMYCIN 600 MG in DEXTROSE 5% 50 ML IV SCH ×3 (01:24→17:54)
[2020-09-15] MEDS: METOPROLOL TARTRATE 25 MG TAB PO SCH ×3 (08:32→21:01)
[2020-09-15] MEDS: lisinopril 40 MG TAB PO SCH (08:33)
[2020-09-15] MEDS: amLODIPine BESYLATE 5 MG TAB PO SCH (08:33)
[2020-09-15] MEDS: FINASTERIDE 5 MG TAB PO SCH (08:33)
[2020-09-15] MEDS: INSULIN ASPART 100 UNITS/ML 3 ML PEN SC SCH ×4 (08:58→22:09)
[2020-09-15] MEDS ORDERED: MICONAZOLE NITRATE POWDER 43 GM EXT PRN (18:11)
--- NOTE | 2020-09-15 20:28 | Hospitalist Progress Note ---
Date of Service September 15, 2020 Assessment & Plan (1) Dysphagia: (1) Aspiration into airway: Unresponsiveness at home likely due to aspiration Acute hypoxic respiratory failure Possible aspiration pneumonia -as per ED notes "This is an 85-year-old male brought in from home via EMS due to a sudden change in mental status leading to unresponsiveness witnessed by the . The reported to EMS he had been having difficulty swallowing for 3 days, this evening suddenly appeared to be choking or gagging and then went unresponsive in front of her. She noted he did not appear to be breathing so she started doing CPR and called 911. On EMS arrival patient had a pulse and was hypertensive although had agonal respirations. They inserted an OPA without difficulty and began bagging the patient. denies any prior GI history. Stated he does have a history of dementia but has been fairly active and independent otherwise. No recent illness or change in medications. They did call for medical command for orders for etomidate in order to secure the patient's airway as even with bagging and improving oxygenation he continued to be unresponsive. Patient was intubated by EMS prior to arrival with a 7.5 ET tube. EMS did note that while they had a clear visualization of the airway there appeared to be emesis in the posterior oropharynx that required suctioning. No blood was noted. No other evidence of airway edema or foreign body. Patient given Versed 7.5 mg and fentanyl 150 mcg post intubation for sedation in route. There was additional emesis that required in line suctioning. Patient's blood pressure was improved upon arrival here, patient being bagged easily, and was still unresponsive." -admission CTA: No pulmonary emboli identified, Multifocal groundglass opacities within the lungs which favor an infectious process or sequela of aspiration, Moderately distended debris-filled esophagus. -he was given initially Zosyn and Ertapenem, currently on Ertapenem alone since the day time of 09/06/2020, can continue for now -Patient was extubated on 09/06/2020, currently on room air oxygen 09/15/19 alert, oriented x 1 afebrile, saturating well on room air Has already received 5 days of ertapenem IV (+) aspiration signs noted 09/13/19 repeat CXR bibasilar infiltrates Speech Tx re-consulted, recommend to continue present diet- strict aspirations precaution permissive aspiration discussed with patiet's to preserve quality of life, agreeable with plan of care PEG tube not recommended by GI service Clindamycin Day #2/5 monitor Moderate to severe dysphagia -09/07/2020 ICU physician expressed concerns of overall prognosis of the patient despite recent extubation because of history of dysphagia. -09/08/2020 speech therapist informed hospitalist that patient is not outright choking based on the video swallow study but the risk of aspiration in future is still present because patient is impulsive with eating the food. hospitalist accepted recommendations from speech therapist that with an oral diet, the patient will have to be closely supervised and this has been done by nursing staff s/p EGD: unremarkable GI service does not recommend PEG tube placement at this point Speech Therapist recommending minced/moist diet, strict aspiration precautions per above Informed RN to have patient be supervised with his meals at all times (2) Alzheimer's dementia: History of Alzheimer's dementia - one to one observation - PRN Zyprexa ordered for agitation - Calm and cooperative (3) BPH (benign prostatic hyperplasia): - madrigal placed by urology service on 09/06/2020 while under ICU level of care - per Urologist: Leave catheter indwelling for 1 week or can remove this Tuesday. Remove only if patient able to stand to void. Start finasteride for possible BPH. - remove Madrigal Cath (4) Aortic stenosis: -history of severe aortic stenosis, last echo 07/2020 ([facility]) (5) PSVT (paroxysmal supraventricular tachycardia) -09/08/2020 Patient noted to have run of SVT and cardiology was consulted Given IV metoprolol while n.p.o. -no SVT since -Transition to metoprolol to 12.5 mg twice daily (6) History of Hypertension - lisinopril and amlodipine - increase Amlodipine 10mg po daily (7) Type 2 diabetes mellitus - monitor blood sugars - sliding scale insulin as needed Full Code Status - on admission Disposition - awaiting acceptance to [facility] Admission and Anticipated Discharge Date Admission Date: September 06, 2020 Subjective Follow-up for aspiration, etc. Seen resting in bed, comfortable, not in distress, sitting up Denies cough, shortness of breath, chest Per RN, patient had no signs of aspiration during breakfast today No other symptoms Review of Systems Review of Systems: All systems reviewed & are unremarkable except as noted in Subjective Physical Exam Physical Exam: General- oriented x 1, not in distress, speaks in sentences with no effort or accessory muscle use Eyes- anicteric Neck- no JVD Lungs-very mild rales at the bases, no wheezing Heart- normal rate, regular rhythm; no murmurs Abdomen- normal bowel sounds, nondistended, soft, nontender Extremities- no pretibial edema, no calf tenderness Neuro- alert, oriented x 1; no gross focal neurologic deficits Skin- warm & dry Results & Data Results & Data ([facility]) Vital Signs (Past 12 Hours) Vital Signs Temp Pulse Pulse Resp BP BP Pulse Ox 09/15/20 18:50 36.9 C 56 L 20 152/68 H 95 09/15/20 16:23 56 L 09/15/20 15:16 36.5 C 54 L 20 132/70 97 09/15/20 11:00 36.6 C 56 L 18 115/61 94
[2020-09-15] MEDS: hydrALAZINE HCL 20 MG/ML VIAL IV PRN (21:03)
[2020-09-16] MEDS: CLINDAMYCIN 600 MG in DEXTROSE 5% 50 ML IV SCH ×3 (03:20→17:05)
[2020-09-16] MEDS: INSULIN ASPART 100 UNITS/ML 3 ML PEN SC SCH ×4 (08:02→20:40)
[2020-09-16] MEDS: METOPROLOL TARTRATE 25 MG TAB PO SCH ×2 (08:03→20:39)
[2020-09-16] MEDS: FINASTERIDE 5 MG TAB PO SCH (08:07)
[2020-09-16] MEDS: amLODIPine BESYLATE 5 MG TAB PO SCH (08:07)
[2020-09-16] MEDS: lisinopril 40 MG TAB PO SCH (08:07)
[2020-09-16] MEDS: OLANZAPINE 2.5 MG TAB PO PRN (18:19)
--- NOTE | 2020-09-16 21:36 | Hospitalist Progress Note ---
Date of Service delayed entry date of service below September 16, 2020 Assessment & Plan (1) Dysphagia: (1) Aspiration into airway: Unresponsiveness at home likely due to aspiration Acute hypoxic respiratory failure Possible aspiration pneumonia - Patient was intubated by EMS prior to arrival -admission CTA: No pulmonary emboli identified, Multifocal groundglass opacities within the lungs which favor an infectious process or sequela of aspiration, Moderately distended debris-filled esophagus. -Patient was extubated on 09/06/2020, currently on room air oxygen 09/16/19 alert, oriented x 1-2 afebrile, saturating well on room air Has already received 5 days of ertapenem IV (+) aspiration signs noted 09/13/19 repeat CXR bibasilar infiltrates Speech Tx re-consulted, recommend to continue present diet- strict aspirations precaution permissive aspiration discussed with patiet's to preserve quality of life, agreeable with plan of care PEG tube not recommended by GI service Clindamycin Day #3/ monitor Moderate to severe dysphagia -09/07/2020 ICU physician expressed concerns of overall prognosis of the patient despite recent extubation because of history of dysphagia. -09/08/2020 speech therapist informed hospitalist that patient is not outright choking based on the video swallow study but the risk of aspiration in future is still present because patient is impulsive with eating the food. hospitalist accepted recommendations from speech therapist that with an oral diet, the patient will have to be closely supervised and this has been done by nursing staff s/p EGD: unremarkable GI service does not recommend PEG tube placement at this point Speech Therapist recommending minced/moist diet, strict aspiration precautions seems to be tolerating minced/moist diet so far Informed RN to have patient be supervised with his meals at all times (need to emphasize this at the SNF as well, also discussed with ) (2) Alzheimer's dementia: History of Alzheimer's dementia - one to one observation - PRN Zyprexa ordered for agitation - Calm and cooperative [id number] today (3) BPH (benign prostatic hyperplasia): - madrigal placed by urology service on 09/06/2020 while under ICU level of care - per Urologist: Leave catheter indwelling for 1 week or can remove this Tuesday. Remove only if patient able to stand to void. Started finasteride for possible BPH. - remove Madrigal Cath (4) Aortic stenosis: -history of severe aortic stenosis, last echo 07/2020 ([facility]) (5) PSVT (paroxysmal supraventricular tachycardia) -09/08/2020 Patient noted to have run of SVT and cardiology was consulted Given IV metoprolol while n.p.o. -no SVT since -Transition to metoprolol to 12.5 mg twice daily (6) History of Hypertension - lisinopril and amlodipine - increase Amlodipine 10mg po daily (7) Type 2 diabetes mellitus - monitor blood sugars - sliding scale insulin as needed Full Code Status - on admission Disposition - awaiting acceptance to [facility], needs to be off 1:1 observation Admission and Anticipated Discharge Date Admission Date: September 06, 2020 Subjective ff up for aspiration pneumonia, etc seen resting in bed, sitting up calm, cooperative, oriented x 1-2 answers simple questions appropriately but mostly confused, easily distracted, tangential, repetitive states he feels fine overall no cough, dyspnea, chest pain per RN, patient tolerating minced/moist diet well so far no other issues Review of Systems Review of Systems: All systems reviewed & are unremarkable except as noted in Subjective Physical Exam Physical Exam: General- oriented x 2, not in distress, speaks in sentences with no effort or accessory muscle use Eyes- anicteric Neck- no JVD Lungs- clear BS BL Heart- normal rate, regular rhythm; no murmurs Abdomen- normal bowel sounds, nondistended, soft, nontender Extremities- no pretibial edema, no calf tenderness Neuro- alert, oriented x 2; no new gross focal neurologic deficits Skin- warm & dry Results & Data Results & Data ([facility]) Vital Signs (Past 12 Hours) Vital Signs Temp Pulse Pulse Resp BP Pulse Ox 09/16/20 19:55 36.8 C 63 18 150/73 H 98 09/16/20 15:55 36.5 C 58 L 20 144/57 H 95 09/16/20 14:23 57 L 09/16/20 11:50 36.3 C L 72 20 131/61 95
[2020-09-17] MEDS: CLINDAMYCIN 600 MG in DEXTROSE 5% 50 ML IV SCH ×3 (02:11→17:56)
[2020-09-17] MEDS: INSULIN ASPART 100 UNITS/ML 3 ML PEN SC SCH ×4 (09:03→20:17)
[2020-09-17] MEDS: amLODIPine BESYLATE 5 MG TAB PO SCH (09:03)
[2020-09-17] MEDS: FINASTERIDE 5 MG TAB PO SCH (09:03)
[2020-09-17] MEDS: METOPROLOL TARTRATE 25 MG TAB PO SCH ×2 (09:03→20:28)
[2020-09-17] MEDS: lisinopril 40 MG TAB PO SCH (09:03)
[2020-09-17 09:32] LABS: Hematocrit (blood only) 40.8 % (42-52); Hemoglobin 13.5 g/dL (14.0-18.0); Mean Corpuscular Hemoglobin 31.2 pg (25-34); Mean Corpuscular Hgb Conc 33.1 g/dL (32-36); Mean Corpuscular Volume 94.2 fL (80-100); Mean Platelet Volume 9.1 fL (7.4-10.4); Platelet Count 297 K/uL (130-400); RDW Coefficient of Variation 12.5 % (11.5-14.5); RDW Standard Deviation 43.3 fL (36.4-46.3); Red Blood Count 4.33 M/uL (4.7-6.1); White Blood Count 7.55 K/uL (4.8-10.8)
[2020-09-17 10:06] LABS: BUN Creatinine Ratio 19.2 (10-20); Calcium 8.9 mg/dl (8.5-10.1); Est GFR (African American) 91.2; Est GFR (Non-African American) 78.7; Magnesium 2.5 mg/dl (1.8-2.4); Phosphorus 4.2 mg/dl (2.5-4.9); Potassium 4.1 mmol/L (3.5-5.1)
--- NOTE | 2020-09-17 11:00 | Hospitalist Progress Note ---
Date of Service September 17, 2020 Assessment & Plan (1) Dysphagia: (1) Aspiration into airway: Unresponsiveness at home likely due to aspiration Acute hypoxic respiratory failure Possible aspiration pneumonia - Patient was intubated by EMS prior to arrival -admission CTA: No pulmonary emboli identified, Multifocal groundglass opacities within the lungs which favor an infectious process or sequela of aspiration, Moderately distended debris-filled esophagus. -Patient was extubated on 09/06/2020, currently on room air oxygen 09/16/19 alert, oriented x 1-2 afebrile, saturating well on room air Has already received 5 days of ertapenem IV (+) aspiration signs noted 09/13/19 repeat CXR bibasilar infiltrates Speech Tx re-consulted, recommend to continue present diet- strict aspirations precaution permissive aspiration discussed with patiet's to preserve quality of life, agreeable with plan of care PEG tube not recommended by GI service Clindamycin Day #4/5 monitor Moderate to severe dysphagia -09/07/2020 ICU physician expressed concerns of overall prognosis of the patient despite recent extubation because of history of dysphagia. -09/08/2020 speech therapist informed hospitalist that patient is not outright choking based on the video swallow study but the risk of aspiration in future is still present because patient is impulsive with eating the food. hospitalist accepted recommendations from speech therapist that with an oral diet, the patient will have to be closely supervised and this has been done by nursing staff s/p EGD: unremarkable GI service does not recommend PEG tube placement at this point Speech Therapist recommending minced/moist diet, strict aspiration precautions seems to be tolerating minced/moist diet so far Informed RN to have patient be supervised with his meals at all times (need to emphasize this at the SNF as well, also discussed with ) (2) Alzheimer's dementia: History of Alzheimer's dementia - one to one observation - PRN Zyprexa ordered for agitation - Calm and cooperative [id number] today (3) BPH (benign prostatic hyperplasia): - madrigal placed by urology service on 09/06/2020 while under ICU level of care - per Urologist: Leave catheter indwelling for 1 week or can remove this Tuesday. Remove only if patient able to stand to void. Started finasteride for possible BPH. - removed Madrigal Cath on 09/16/20, pt is voiding (needed straight cath overnight -09/17) (4) Aortic stenosis: -history of severe aortic stenosis, last echo 07/2020 ([facility]) (5) PSVT (paroxysmal supraventricular tachycardia) -09/08/2020 Patient noted to have run of SVT and cardiology was consulted Given IV metoprolol while n.p.o. -no SVT since -Transition to metoprolol to 12.5 mg twice daily (6) History of Hypertension - lisinopril and amlodipine - increase Amlodipine 10mg po daily (7) Type 2 diabetes mellitus - monitor blood sugars - sliding scale insulin as needed Full Code Status - on admission Disposition - awaiting acceptance to [facility], needs to be off 1:1 observation, now on check q15 min Admission and Anticipated Discharge Date Admission Date: September 06, 2020 Subjective Pt is laying in bed, a [employer] magazine laying in his lap, pleasant, he is in NAD. Also observed pt while walking with PT. Pt's speech is somewhat slurred per staff that is unchanged. Pt denies any fever, chills, chest pain, shortness of breath, abd. pain. Review of Systems Review of Systems: All systems reviewed & are unremarkable except as noted in HPI & below Constitutional: no fever and no chills Respiratory: no cough and no dyspnea Cardiovascular: no chest pain and no palpitations Gastrointestinal: no abdominal pain, no nausea and no vomiting Physical Exam Physical Exam: General- elderly male laying in bed , in NAD, awake and alert, oriented x 2, speaks in sentences with no effort or accessory muscle use Eyes- anicteric Neck- no JVD Lungs- diffuse rhonchi, no wheezing, breathing comfortably on room air Heart- normal rate, regular rhythm; + syst. murmur 3/6 Abdomen- normal bowel sounds, nondistended, soft, nontender Extremities- no pretibial edema, no calf tenderness : Madrigal removed (on 09/16/20) Neuro- alert, oriented x 2; no new gross focal neurologic deficits Skin- warm & dry Results & Data Results & Data ([facility]) Vital Signs (Past 12 Hours) Vital Signs Temp Pulse Resp BP BP Pulse Ox 09/17/20 09:02 36.3 C L 54 L 166/67 H 96 09/17/20 02:45 36.7 C 55 L 21 168/71 H 96 09/17/20 00:29 36.5 C 53 L 19 164/67 H 96 Laboratory Results 09/17/20 09/17/20 09/17/20 Range/Units 09:20 09:20 08:58 WBC 7.55 (4.8-10.8) K/uL RBC 4.33 L (4.7-6.1) M/uL Hgb 13.5 L (14.0-18.0) g/dL Hct 40.8 L (42-52) % MCV 94.2 (80-100) fL MCH 31.2 (25-34) pg MCHC 33.1 (32-36) g/dL RDW Std Deviation 43.3 (36.4-46.3) fL RDW Coeff of Ailyn 12.5 (11.5-14.5) % Plt Count 297 (130-400) K/uL MPV 9.1 (7.4-10.4) fL Sodium 138 (136-145) mmol/L Potassium 4.1 (3.5-5.1) mmol/L Chloride 106 (98-107) mmol/L Carbon Dioxide 28 (21-32) mmol/L Anion Gap 4.0 (3-11) BUN 17 (7-18) mg/dl Creatinine 0.87 (0.6-1.4) mg/dl Est Cr Clr Drug Dosing 58.0 ml/min Est GFR ( Amer) 91.2 Est GFR (Non-Af Amer) 78.7 BUN/Creatinine Ratio 19.2 (10-20) Glucose 98 (70-99) mg/dl POC Glucose 88 (70-99) mg/dl Calcium 8.9 (8.5-10.1) mg/dl Phosphorus 4.2 (2.5-4.9) mg/dl Magnesium 2.5 H (1.8-2.4) mg/dl 09/16/20 09/16/20 09/16/20 Range/Units 20:34 16:41 11:37 WBC (4.8-10.8) K/uL RBC (4.7-6.1) M/uL Hgb (14.0-18.0) g/dL Hct (42-52) % MCV (80-100) fL MCH (25-34) pg MCHC (32-36) g/dL RDW Std Deviation (36.4-46.3) fL RDW Coeff of Ailyn (11.5-14.5) % Plt Count (130-400) K/uL MPV (7.4-10.4) fL Sodium (136-145) mmol/L Potassium (3.5-5.1) mmol/L Chloride (98-107) mmol/L Carbon Dioxide (21-32) mmol/L Anion Gap (3-11) BUN (7-18) mg/dl Creatinine (0.6-1.4) mg/dl Est Cr Clr Drug Dosing ml/min Est GFR ( Amer) Est GFR (Non-Af Amer) BUN/Creatinine Ratio (10-20) Glucose (70-99) mg/dl POC Glucose 90 107 H 109 H (70-99) mg/dl Calcium (8.5-10.1) mg/dl Phosphorus (2.5-4.9) mg/dl Magnesium (1.8-2.4) mg/dl Medications Administered Current Inpatient Medications Acetaminophen (Acetaminophen 325 Mg Tab) 650 mg PO Q6H PRN PRN Reason: Fever Stop: 10/13/20 20:21 Last Admin: 09/13/20 20:39 Dose: 650 mg Documented by: Amlodipine Besylate (Amlodipine Besylate 5 Mg Tab) 10 mg PO [facility] Stop: 10/15/20 08:59 Last Admin: 09/17/20 09:03 Dose: 10 mg Documented by: Dextrose (Dextrose 50% 50 Ml Syringe) 25 - 50 ml IV UD PRN; Protocol PRN Reason: Hypoglycemia Protocol Stop: 10/06/20 06:29 Last Admin: 09/08/20 05:51 Dose: 25 ml Documented by: Finasteride (Finasteride 5 Mg Tab) 5 mg PO [facility] Stop: 10/11/20 08:59 Last Admin: 09/17/20 09:03 Dose: 5 mg Documented by: Glucagon (Glucagon For Inj 1 Mg Vial) 1 mg SQ UD PRN; Protocol PRN Reason: Hypoglycemia Protocol Stop: 10/06/20 06:29 Glucose (Glucose 40% Gel 15 Gm Tube) 15 - 30 gm PO UD PRN; Protocol PRN Reason: Hypoglycemia Protocol Stop: 10/06/20 06:29 Glucose (Glucose 10 Tabs/Tube) 4 - 8 tabs PO UD PRN; Protocol PRN Reason: Hypoglycemia Protocol Stop: 10/06/20 06:29 Hydralazine HCl (Hydralazine Hcl 20 Mg/Ml Vial) 10 mg IV Q6H PRN PRN Reason: hypertension Stop: 10/12/20 17:44 Last Admin: 09/15/20 21:03 Dose: 10 mg Documented by: Clindamycin Phosphate 600 mg/ (Dextrose) 54 mls @ 100 mls/hr IV Q8H [facility] Stop: 09/21/20 09:59 Last Infusion: 09/17/20 10:44 Dose: Infused Documented by: Insulin Aspart (Insulin Aspart 100 Units/Ml 3 Ml Pen) 0 units SC ACHS [facility] Stop: 10/08/20 20:59 Last Admin: 09/17/20 09:03 Dose: Not Given Documented by: Lisinopril (Lisinopril 40 Mg Tab) 40 mg PO DAILY [facility] Stop: 10/11/20 15:29 Last Admin: 09/17/20 09:03 Dose: 40 mg Documented by: Metoprolol Tartrate (Metoprolol Tartrate 1 Mg/Ml Vial) 2.5 mg IV Q6 PRN PRN Reason: Tachycardia Stop: 10/09/20 00:00 Last Admin: 09/09/20 05:17 Dose: 2.5 mg Documented by: Metoprolol Tartrate (Metoprolol Tartrate 25 Mg Tab) 12.5 mg PO BID [facility] Stop: 10/11/20 20:59 Last Admin: 09/17/20 09:03 Dose: 12.5 mg Documented by: Miconazole Nitrate (Miconazole Nitrate Powder 43 Gm) 1 appln EXT PRN PRN PRN Reason: reddened buttocks Stop: 10/15/20 18:10 Miscellaneous (Carbohydrates For Hypoglycemia ) 15 - 30 gm PO UD PRN PRN Reason: Hypoglycemia Treatment Stop: 10/06/20 06:29 Olanzapine (Olanzapine 2.5 Mg Tab) 2.5 mg PO DAILY PRN PRN Reason: Agitation Stop: 10/11/20 08:59 Last Admin: 09/16/20 18:19 Dose: 2.5 mg Documented by:
[2020-09-18] MEDS: CLINDAMYCIN 600 MG in DEXTROSE 5% 50 ML IV SCH ×3 (02:44→17:16)
[2020-09-18 07:23] LABS: Hematocrit (blood only) 37.7 % (42-52); Hemoglobin 12.4 g/dL (14.0-18.0); Mean Corpuscular Hemoglobin 30.8 pg (25-34); Mean Corpuscular Hgb Conc 32.9 g/dL (32-36); Mean Corpuscular Volume 93.8 fL (80-100); Mean Platelet Volume 9.1 fL (7.4-10.4); Platelet Count 295 K/uL (130-400); RDW Coefficient of Variation 12.6 % (11.5-14.5); RDW Standard Deviation 43.3 fL (36.4-46.3); Red Blood Count 4.02 M/uL (4.7-6.1); White Blood Count 8.53 K/uL (4.8-10.8)
[2020-09-18 07:47] LABS: BUN Creatinine Ratio 19.7 (10-20); Calcium 8.3 mg/dl (8.5-10.1); Creatinine Clr Calc Pharmacy 60.1 ml/min; Est GFR (African American) 92.5; Est GFR (Non-African American) 79.8; Potassium 3.9 mmol/L (3.5-5.1)
[2020-09-18] MEDS: INSULIN ASPART 100 UNITS/ML 3 ML PEN SC SCH ×4 (07:48→21:14)
[2020-09-18] MEDS: amLODIPine BESYLATE 5 MG TAB PO SCH (08:07)
[2020-09-18] MEDS: FINASTERIDE 5 MG TAB PO SCH (08:07)
[2020-09-18] MEDS: METOPROLOL TARTRATE 25 MG TAB PO SCH ×2 (08:07→21:14)
[2020-09-18] MEDS: lisinopril 40 MG TAB PO SCH (08:07)
--- NOTE | 2020-09-18 09:37 | Hospitalist Progress Note ---
Date of Service September 18, 2020 Assessment & Plan (1) Aspiration into airway: (1) Dysphagia: (1) Aspiration into airway: Unresponsiveness at home likely due to aspiration Acute hypoxic respiratory failure Possible aspiration pneumonia - Patient was intubated by EMS prior to arrival -admission CTA: No pulmonary emboli identified, Multifocal groundglass opacities within the lungs which favor an infectious process or sequela of aspiration, Moderately distended debris-filled esophagus. -Patient was extubated on 09/06/2020, currently on room air oxygen 09/16/19 alert, oriented x 1-2 afebrile, saturating well on room air Has already received 5 days of ertapenem IV (+) aspiration signs noted 09/13/19 repeat CXR bibasilar infiltrates Speech Tx re-consulted, recommend to continue present diet- strict aspirations precaution permissive aspiration discussed with patiet's to preserve quality of life, agreeable with plan of care PEG tube not recommended by GI service Clindamycin Day #5/ monitor Moderate to severe dysphagia -09/07/2020 ICU physician expressed concerns of overall prognosis of the patient despite recent extubation because of history of dysphagia. -09/08/2020 speech therapist informed hospitalist that patient is not outright choking based on the video swallow study but the risk of aspiration in future is still present because patient is impulsive with eating the food. hospitalist accepted recommendations from speech therapist that with an oral diet, the patient will have to be closely supervised and this has been done by nursing staff s/p EGD: unremarkable GI service does not recommend PEG tube placement at this point Speech Therapist recommending minced/moist diet, strict aspiration precautions seems to be tolerating minced/moist diet so far Informed RN to have patient be supervised with his meals at all times (need to emphasize this at the SNF as well, also discussed with ) (2) Alzheimer's dementia: (2) Alzheimer's dementia: History of Alzheimer's dementia - one to one observation - PRN Zyprexa ordered for agitation - Calm and cooperative [id number] today (3) BPH (benign prostatic hyperplasia): (3) BPH (benign prostatic hyperplasia): - madrigal placed by urology service on 09/06/2020 while under ICU level of care - per Urologist: Leave catheter indwelling for 1 week or can remove this Tuesday. Remove only if patient able to stand to void. Started finasteride for possible BPH. - removed Madrigal Cath on 09/16/20, pt is voiding (needed straight cath overnight 09/16-09/17) (4) Aortic stenosis: Aortic stenosis: -history of severe aortic stenosis, last echo 07/2020 ([facility]) (5) PSVT (paroxysmal supraventricular tachycardia) -09/08/2020 Patient noted to have run of SVT and cardiology was consulted Given IV metoprolol while n.p.o. -no SVT since -Transition to metoprolol to 12.5 mg twice daily (6) History of Hypertension - lisinopril and amlodipine - increase Amlodipine 10mg po daily (7) Type 2 diabetes mellitus - monitor blood sugars - sliding scale insulin as needed Full Code Status - on admission Disposition - awaiting acceptance to [facility], needs to be off 1:1 observation, now on check q15 min Admission and Anticipated Discharge Date Admission Date: September 06, 2020 Subjective Pt seen in follow up of aspiration pna and other med. problems. Pt is sitting up in a chair, reading magazines, he is in NAD. Pt's speech is somewhat slurred per staff that is unchanged. Pt denies any fever, chills, chest pain, shortness of breath, abd. pain. Review of Systems Review of Systems: All systems reviewed & are unremarkable except as noted in HPI & below Constitutional: no fever and no chills Respiratory: + cough (improved); no dyspnea Cardiovascular: no chest pain and no palpitations Gastrointestinal: no abdominal pain, no nausea and no vomiting Physical Exam Physical Exam: General- elderly male in NAD, awake and alert, oriented x 2, speaks in sentences with no effort or accessory muscle use Eyes- anicteric Neck- no JVD Lungs- diffuse rhonchi, no wheezing, breathing comfortably on room air Heart- normal rate, regular rhythm; + syst. murmur 3/6 Abdomen- normal bowel sounds, nondistended, soft, nontender Extremities- no pretibial edema, no calf tenderness : Madrigal removed (on 09/16/20) Neuro- alert, oriented x 2; no new gross focal neurologic deficits Skin- warm & dry Results & Data Results & Data ([facility]) Vital Signs (Past 12 Hours) Vital Signs Temp Pulse Pulse Resp BP Pulse Ox 09/18/20 07:10 36.7 C 50 L 16 124/52 L 97 09/18/20 04:00 36.7 C 57 L 18 152/68 H 94 09/18/20 02:16 50 L 09/17/20 23:00 36.5 C 55 L 18 143/64 H 96 Laboratory Results 09/18/20 09/18/20 09/18/20 Range/Units 07:36 06:59 06:59 WBC 8.53 (4.8-10.8) K/uL RBC 4.02 L (4.7-6.1) M/uL Hgb 12.4 L (14.0-18.0) g/dL Hct 37.7 L (42-52) % MCV 93.8 (80-100) fL MCH 30.8 (25-34) pg MCHC 32.9 (32-36) g/dL RDW Std Deviation 43.3 (36.4-46.3) fL RDW Coeff of Ailyn 12.6 (11.5-14.5) % Plt Count 295 (130-400) K/uL MPV 9.1 (7.4-10.4) fL Sodium 137 (136-145) mmol/L Potassium 3.9 (3.5-5.1) mmol/L Chloride 106 (98-107) mmol/L Carbon Dioxide 27 (21-32) mmol/L Anion Gap 4.0 (3-11) BUN 16 (7-18) mg/dl Creatinine 0.84 (0.6-1.4) mg/dl Est Cr Clr Drug Dosing 60.1 ml/min Est GFR ( Amer) 92.5 Est GFR (Non-Af Amer) 79.8 BUN/Creatinine Ratio 19.7 (10-20) Glucose 87 (70-99) mg/dl POC Glucose 86 (70-99) mg/dl Calcium 8.3 L (8.5-10.1) mg/dl Phosphorus (2.5-4.9) mg/dl Magnesium (1.8-2.4) mg/dl 09/17/20 09/17/20 09/17/20 Range/Units 20:13 16:35 11:35 WBC (4.8-10.8) K/uL RBC (4.7-6.1) M/uL Hgb (14.0-18.0) g/dL Hct (42-52) % MCV (80-100) fL MCH (25-34) pg MCHC (32-36) g/dL RDW Std Deviation (36.4-46.3) fL RDW Coeff of Ailyn (11.5-14.5) % Plt Count (130-400) K/uL MPV (7.4-10.4) fL Sodium (136-145) mmol/L Potassium (3.5-5.1) mmol/L Chloride (98-107) mmol/L Carbon Dioxide (21-32) mmol/L Anion Gap (3-11) BUN (7-18) mg/dl Creatinine (0.6-1.4) mg/dl Est Cr Clr Drug Dosing ml/min Est GFR ( Amer) Est GFR (Non-Af Amer) BUN/Creatinine Ratio (10-20) Glucose (70-99) mg/dl POC Glucose 96 110 H 106 H (70-99) mg/dl Calcium (8.5-10.1) mg/dl Phosphorus (2.5-4.9) mg/dl Magnesium (1.8-2.4) mg/dl 09/17/20 Range/Units 09:20 WBC (4.8-10.8) K/uL RBC (4.7-6.1) M/uL Hgb (14.0-18.0) g/dL Hct (42-52) % MCV (80-100) fL MCH (25-34) pg MCHC (32-36) g/dL RDW Std Deviation (36.4-46.3) fL RDW Coeff of Ailyn (11.5-14.5) % Plt Count (130-400) K/uL MPV (7.4-10.4) fL Sodium 138 (136-145) mmol/L Potassium 4.1 (3.5-5.1) mmol/L Chloride 106 (98-107) mmol/L Carbon Dioxide 28 (21-32) mmol/L Anion Gap 4.0 (3-11) BUN 17 (7-18) mg/dl Creatinine 0.87 (0.6-1.4) mg/dl Est Cr Clr Drug Dosing 58.0 ml/min Est GFR ( Amer) 91.2 Est GFR (Non-Af Amer) 78.7 BUN/Creatinine Ratio 19.2 (10-20) Glucose 98 (70-99) mg/dl POC Glucose (70-99) mg/dl Calcium 8.9 (8.5-10.1) mg/dl Phosphorus 4.2 (2.5-4.9) mg/dl Magnesium 2.5 H (1.8-2.4) mg/dl Medications Administered Current Inpatient Medications Acetaminophen (Acetaminophen 325 Mg Tab) 650 mg PO Q6H PRN PRN Reason: Fever Stop: 10/13/20 20:21 Last Admin: 09/13/20 20:39 Dose: 650 mg Documented by: Amlodipine Besylate (Amlodipine Besylate 5 Mg Tab) 10 mg PO [facility] Stop: 10/15/20 08:59 Last Admin: 09/18/20 08:07 Dose: 10 mg Documented by: Dextrose (Dextrose 50% 50 Ml Syringe) 25 - 50 ml IV UD PRN; Protocol PRN Reason: Hypoglycemia Protocol Stop: 10/06/20 06:29 Last Admin: 09/08/20 05:51 Dose: 25 ml Documented by: Finasteride ([facility] 5 Mg Tab) [facility]: 10/11/20 08:59 Last Admin: 09/18/20 08:07 Dose: 5 mg Documented by: Glucagon (Glucagon For Inj 1 Mg Vial) 1 mg SQ UD PRN; Protocol PRN Reason: Hypoglycemia Protocol Stop: 10/06/20 06:29 Glucose (Glucose 40% Gel 15 Gm Tube) 15 - 30 gm PO UD PRN; Protocol PRN Reason: Hypoglycemia Protocol Stop: 10/06/20 06:29 Glucose (Glucose 10 Tabs/Tube) 4 - 8 tabs PO UD PRN; Protocol PRN Reason: Hypoglycemia Protocol Stop: 10/06/20 06:29 Hydralazine HCl (Hydralazine Hcl 20 Mg/Ml Vial) 10 mg IV Q6H PRN PRN Reason: hypertension Stop: 10/12/20 17:44 Last Admin: 09/15/20 21:03 Dose: 10 mg Documented by: Clindamycin Phosphate 600 mg/ (Dextrose) 54 mls @ 100 mls/hr IV Q8H [facility] Stop: 09/21/20 09:59 Last Infusion: 09/18/20 03:19 Dose: Infused Documented by: Insulin Aspart (Insulin Aspart 100 Units/Ml 3 Ml Pen) 0 units SC ACHS [facility] Stop: 10/08/20 20:59 Last Admin: 09/18/20 07:48 Dose: Not Given Documented by: Lisinopril (Lisinopril 40 Mg Tab) 40 mg PO DAILY [facility] Stop: 10/11/20 15:29 Last Admin: 09/18/20 08:07 Dose: 40 mg Documented by: Metoprolol Tartrate (Metoprolol Tartrate 1 Mg/Ml Vial) 2.5 mg IV Q6 PRN PRN Reason: Tachycardia Stop: 10/09/20 00:00 Last Admin: 09/09/20 05:17 Dose: 2.5 mg Documented by: Metoprolol Tartrate (Metoprolol Tartrate 25 Mg Tab) 12.5 mg PO BID [facility] Stop: 10/11/20 20:59 Last Admin: 09/18/20 08:07 Dose: 12.5 mg Documented by: Miconazole Nitrate (Miconazole Nitrate Powder 43 Gm) 1 appln EXT PRN PRN PRN Reason: reddened buttocks Stop: 10/15/20 18:10 Miscellaneous (Carbohydrates For Hypoglycemia ) 15 - 30 gm PO UD PRN PRN Reason: Hypoglycemia Treatment Stop: 10/06/20 06:29 Olanzapine (Olanzapine 2.5 Mg Tab) 2.5 mg PO DAILY PRN PRN Reason: Agitation Stop: 10/11/20 08:59 Last Admin: 09/16/20 18:19 Dose: 2.5 mg Documented by: (1) Aspiration into airway Encounter type: initial encounter Qualified Code(s): T17.908A - Unspecified foreign body in respiratory tract, part unspecified causing other injury, initial encounter (2) Aortic stenosis Cardiac valve disease etiology: nonrheumatic Qualified Code(s): I35.0 - Nonrheumatic aortic (valve) stenosis
[2020-09-19] MEDS: CLINDAMYCIN 600 MG in DEXTROSE 5% 50 ML IV SCH ×3 (02:04→17:27)
[2020-09-19 07:09] LABS: Hematocrit (blood only) 35.5 % (42-52); Hemoglobin 11.9 g/dL (14.0-18.0); Mean Corpuscular Hemoglobin 31.3 pg (25-34); Mean Corpuscular Hgb Conc 33.5 g/dL (32-36); Mean Corpuscular Volume 93.4 fL (80-100); Platelet Count 302 K/uL (130-400); RDW Coefficient of Variation 12.6 % (11.5-14.5); RDW Standard Deviation 42.9 fL (36.4-46.3); White Blood Count 8.53 K/uL (4.8-10.8)
[2020-09-19 07:39] LABS: BUN Creatinine Ratio 21.4 (10-20); Calcium 8.7 mg/dl (8.5-10.1); Creatinine Clr Calc Pharmacy 53.7 ml/min; Est GFR (African American) 85.3; Est GFR (Non-African American) 73.6; Magnesium 2.2 mg/dl (1.8-2.4)
[2020-09-19 07:45] LABS: Phosphorus 3.5 mg/dl (2.5-4.9)
[2020-09-19] MEDS: INSULIN ASPART 100 UNITS/ML 3 ML PEN SC SCH ×4 (08:20→20:58)
[2020-09-19] MEDS: lisinopril 40 MG TAB PO SCH (08:43)
[2020-09-19] MEDS: FINASTERIDE 5 MG TAB PO SCH (08:43)
[2020-09-19] MEDS: METOPROLOL TARTRATE 25 MG TAB PO SCH ×2 (08:43→20:57)
[2020-09-19] MEDS: amLODIPine BESYLATE 5 MG TAB PO SCH (08:43)
[2020-09-19] MEDS: guaiFENesin 600 MG TABCR PO SCH ×2 (08:43→20:58)
--- NOTE | 2020-09-19 23:39 | Hospitalist Progress Note ---
Date of Service September 19, 2020 Assessment & Plan (1) Aspiration into airway: (1) Dysphagia: (1) Aspiration into airway: Unresponsiveness at home likely due to aspiration Acute hypoxic respiratory failure Possible aspiration pneumonia - Patient was intubated by EMS prior to arrival -admission CTA: No pulmonary emboli identified, Multifocal groundglass opacities within the lungs which favor an infectious process or sequela of aspiration, Moderately distended debris-filled esophagus. -Patient was extubated on 09/06/2020, currently on room air oxygen 09/16/19 alert, oriented x 1-2 afebrile, saturating well on room air Has already received 5 days of ertapenem IV (+) aspiration signs noted 09/13/19 repeat CXR bibasilar infiltrates Speech Tx re-consulted, recommend to continue present diet- strict aspirations precaution permissive aspiration discussed with patiet's to preserve quality of life, agreeable with plan of care PEG tube not recommended by GI service Clindamycin Day #6 monitor Moderate to severe dysphagia -09/07/2020 ICU physician expressed concerns of overall prognosis of the patient despite recent extubation because of history of dysphagia. -09/08/2020 speech therapist informed hospitalist that patient is not outright choking based on the video swallow study but the risk of aspiration in future is still present because patient is impulsive with eating the food. hospitalist accepted recommendations from speech therapist that with an oral diet, the patient will have to be closely supervised and this has been done by nursing staff s/p EGD: unremarkable GI service does not recommend PEG tube placement at this point Speech Therapist recommending minced/moist diet, strict aspiration precautions seems to be tolerating minced/moist diet so far Informed RN to have patient be supervised with his meals at all times (need to emphasize this at the SNF as well, also discussed with ) (2) Alzheimer's dementia: (2) Alzheimer's dementia: History of Alzheimer's dementia - one to one observation - PRN Zyprexa ordered for agitation - Calm and cooperative [id number] yesterday, now again w/ 1:1 sitter (3) BPH (benign prostatic hyperplasia): (3) BPH (benign prostatic hyperplasia): - madrigal placed by urology service on 09/06/2020 while under ICU level of care - per Urologist: Leave catheter indwelling for 1 week or can remove this Tuesday. Remove only if patient able to stand to void. Started finasteride for possible BPH. - removed Madrigal Cath on 09/16/20, pt is voiding (4) Aortic stenosis: Aortic stenosis: -history of severe aortic stenosis, last echo 07/2020 ([facility]) (5) PSVT (paroxysmal supraventricular tachycardia) -09/08/2020 Patient noted to have run of SVT and cardiology was consulted Given IV metoprolol while n.p.o. -no SVT since -Transition to metoprolol to 12.5 mg twice daily, however now bradycardic, will hold (6) History of Hypertension - lisinopril and amlodipine - increased Amlodipine 10mg po daily (7) Type 2 diabetes mellitus - monitor blood sugars - sliding scale insulin as needed Full Code Status - on admission Disposition - awaiting acceptance to [facility], needs to be off 1:1 observation Admission and Anticipated Discharge Date Admission Date: September 06, 2020 Subjective Pt seen in follow up of aspiration pna and other med. problems. Pt is laying in bed, he is in NAD. he has 1:1 sitter as he was getting up from bed last night w/o notifying nursing staff. Will discuss w/ nursing staff if still necessary and if q15 min checks could be done. Pt denies any fever, chills, chest pain, shortness of breath, abd. pain. Review of Systems Review of Systems: All systems reviewed & are unremarkable except as noted in HPI & below Constitutional: no fever and no chills Respiratory: + cough (improved); no dyspnea Cardiovascular: no chest pain and no palpitations Gastrointestinal: no abdominal pain, no nausea and no vomiting Physical Exam Physical Exam: General- elderly male in NAD, awake and alert, oriented x 2, speaks in sentences with no effort or accessory muscle use Eyes- anicteric Neck- no JVD Lungs- diffuse rhonchi, no wheezing, breathing comfortably on room air Heart- normal rate, regular rhythm; + syst. murmur 3/6 Abdomen- normal bowel sounds, nondistended, soft, nontender Extremities- no pretibial edema, no calf tenderness : Madrigal removed (on 09/16/20) Neuro- alert, oriented x 2; no new gross focal neurologic deficits Skin- warm & dry Results & Data Results & Data ([facility]) Vital Signs (Past 12 Hours) Vital Signs Temp Pulse Resp BP BP Pulse Ox 09/19/20 19:14 36.8 C 53 L 16 135/70 99 09/19/20 15:33 36.4 C L 78 18 136/70 99 09/19/20 11:40 36.4 C L 52 L 20 108/56 L 96 Laboratory Results 09/19/20 09/19/20 09/19/20 Range/Units 20:10 16:28 11:31 WBC (4.8-10.8) K/uL RBC (4.7-6.1) M/uL Hgb (14.0-18.0) g/dL Hct (42-52) % MCV (80-100) fL MCH (25-34) pg MCHC (32-36) g/dL RDW Std Deviation (36.4-46.3) fL RDW Coeff of Ailyn (11.5-14.5) % Plt Count (130-400) K/uL MPV (7.4-10.4) fL Sodium (136-145) mmol/L Potassium (3.5-5.1) mmol/L Chloride (98-107) mmol/L Carbon Dioxide (21-32) mmol/L Anion Gap (3-11) BUN (7-18) mg/dl Creatinine (0.6-1.4) mg/dl Est Cr Clr Drug Dosing ml/min Est GFR ( Amer) Est GFR (Non-Af Amer) BUN/Creatinine Ratio (10-20) Glucose (70-99) mg/dl POC Glucose 105 H 106 H 98 (70-99) mg/dl Calcium (8.5-10.1) mg/dl Phosphorus (2.5-4.9) mg/dl Magnesium (1.8-2.4) mg/dl 09/19/20 09/19/20 09/19/20 Range/Units 07:41 06:43 06:43 WBC 8.53 (4.8-10.8) K/uL RBC 3.80 L (4.7-6.1) M/uL Hgb 11.9 L (14.0-18.0) g/dL Hct 35.5 L (42-52) % MCV 93.4 (80-100) fL MCH 31.3 (25-34) pg MCHC 33.5 (32-36) g/dL RDW Std Deviation 42.9 (36.4-46.3) fL RDW Coeff of Ailyn 12.6 (11.5-14.5) % Plt Count 302 (130-400) K/uL MPV 9.0 (7.4-10.4) fL Sodium 138 (136-145) mmol/L Potassium 4.0 (3.5-5.1) mmol/L Chloride 107 (98-107) mmol/L Carbon Dioxide 25 (21-32) mmol/L Anion Gap 6.0 (3-11) BUN 20 H (7-18) mg/dl Creatinine 0.94 (0.6-1.4) mg/dl Est Cr Clr Drug Dosing 53.7 ml/min Est GFR ( Amer) 85.3 Est GFR (Non-Af Amer) 73.6 BUN/Creatinine Ratio 21.4 H (10-20) Glucose 83 (70-99) mg/dl POC Glucose 80 (70-99) mg/dl Calcium 8.7 (8.5-10.1) mg/dl Phosphorus 3.5 (2.5-4.9) mg/dl Magnesium 2.2 (1.8-2.4) mg/dl Medications Administered Current Inpatient Medications Acetaminophen (Acetaminophen 325 Mg Tab) 650 mg PO Q6H PRN PRN Reason: Fever Stop: 10/13/20 20:21 Last Admin: 09/13/20 20:39 Dose: 650 mg Documented by: Amlodipine Besylate (Amlodipine Besylate 5 Mg Tab) 10 mg PO [facility] Stop: 10/15/20 08:59 Last Admin: 09/19/20 08:43 Dose: 10 mg Documented by: Dextrose (Dextrose 50% 50 Ml Syringe) 25 - 50 ml IV UD PRN; Protocol PRN Reason: Hypoglycemia Protocol Stop: 10/06/20 06:29 Last Admin: 09/08/20 05:51 Dose: 25 ml Documented by: Finasteride (Finasteride 5 Mg Tab) 5 mg PO [facility] Stop: 10/11/20 08:59 Last Admin: 09/19/20 08:43 Dose: 5 mg Documented by: Glucagon (Glucagon For Inj 1 Mg Vial) 1 mg SQ UD PRN; Protocol PRN Reason: Hypoglycemia Protocol Stop: 10/06/20 06:29 Glucose (Glucose 40% Gel 15 Gm Tube) 15 - 30 gm PO UD PRN; Protocol PRN Reason: Hypoglycemia Protocol Stop: 10/06/20 06:29 Glucose (Glucose 10 Tabs/Tube) 4 - 8 tabs PO UD PRN; Protocol PRN Reason: Hypoglycemia Protocol Stop: 10/06/20 06:29 Guaifenesin (Guaifenesin 600 Mg Tabcr) 600 mg PO Q12 [facility] Stop: 10/19/20 08:59 Last Admin: 09/19/20 20:58 Dose: 600 mg Documented by: Hydralazine HCl (Hydralazine Hcl 20 Mg/Ml Vial) 10 mg IV Q6H PRN PRN Reason: hypertension Stop: 10/12/20 17:44 Last Admin: 09/15/20 21:03 Dose: 10 mg Documented by: Clindamycin Phosphate 600 mg/ (Dextrose) 54 mls @ 100 mls/hr IV Q8H [facility] Stop: 09/21/20 09:59 Last Infusion: 09/19/20 18:23 Dose: Infused Documented by: Insulin Aspart (Insulin Aspart 100 Units/Ml 3 Ml Pen) 0 units SC ACHS [facility] Stop: 10/08/20 20:59 Last Admin: 09/19/20 20:58 Dose: Not Given Documented by: Lisinopril (Lisinopril 40 Mg Tab) 40 mg PO DAILY [facility] Stop: 10/11/20 15:29 Last Admin: 09/19/20 08:43 Dose: 40 mg Documented by: Metoprolol Tartrate (Metoprolol Tartrate 1 Mg/Ml Vial) 2.5 mg IV Q6 PRN PRN Reason: Tachycardia Stop: 10/09/20 00:00 Last Admin: 09/09/20 05:17 Dose: 2.5 mg Documented by: Metoprolol Tartrate (Metoprolol Tartrate 25 Mg Tab) 12.5 mg PO BID [facility] Stop: 10/11/20 20:59 Last Admin: 09/19/20 20:57 Dose: Not Given Documented by: Miconazole Nitrate (Miconazole Nitrate Powder 43 Gm) 1 appln EXT PRN PRN PRN Reason: reddened buttocks Stop: 10/15/20 18:10 Miscellaneous (Carbohydrates For Hypoglycemia ) 15 - 30 gm PO UD PRN PRN Reason: Hypoglycemia Treatment Stop: 10/06/20 06:29 Olanzapine (Olanzapine 2.5 Mg Tab) 2.5 mg PO DAILY PRN PRN Reason: Agitation Stop: 10/11/20 08:59 Last Admin: 09/16/20 18:19 Dose: 2.5 mg Documented by: (1) Aspiration into airway Encounter type: initial encounter Qualified Code(s): T17.908A - Unspecified foreign body in respiratory tract, part unspecified causing other injury, initial encounter (2) Aortic stenosis Cardiac valve disease etiology: nonrheumatic Qualified Code(s): I35.0 - Nonrheumatic aortic (valve) stenosis
[2020-09-20] MEDS: CLINDAMYCIN 600 MG in DEXTROSE 5% 50 ML IV SCH ×3 (01:18→18:10)
[2020-09-20] MEDS: lisinopril 40 MG TAB PO SCH (08:43)
[2020-09-20] MEDS: FINASTERIDE 5 MG TAB PO SCH (08:43)
[2020-09-20] MEDS: METOPROLOL TARTRATE 25 MG TAB PO SCH ×2 (08:43→20:34)
[2020-09-20] MEDS: amLODIPine BESYLATE 5 MG TAB PO SCH (08:44)
[2020-09-20] MEDS: guaiFENesin 600 MG TABCR PO SCH ×2 (08:45→20:34)
[2020-09-20] MEDS: INSULIN ASPART 100 UNITS/ML 3 ML PEN SC SCH ×4 (08:46→20:34)
--- NOTE | 2020-09-20 09:49 | Hospitalist Progress Note ---
Date of Service September 20, 2020 Assessment & Plan (1) Aspiration into airway: (1) Dysphagia: (1) Aspiration into airway: Unresponsiveness at home likely due to aspiration Acute hypoxic respiratory failure Possible aspiration pneumonia - Patient was intubated by EMS prior to arrival -admission CTA: No pulmonary emboli identified, Multifocal groundglass opacities within the lungs which favor an infectious process or sequela of aspiration, Moderately distended debris-filled esophagus. -Patient was extubated on 09/06/2020, currently on room air oxygen 09/16/19 alert, oriented x 1-2 afebrile, saturating well on room air Has already received 5 days of ertapenem IV (+) aspiration signs noted 09/13/19 repeat CXR bibasilar infiltrates Speech Tx re-consulted, recommend to continue present diet- strict aspirations precaution permissive aspiration discussed with patiet's to preserve quality of life, agreeable with plan of care PEG tube not recommended by GI service Clindamycin Day #7, course finished IS, flutter valve. mucinex Clinically pt much improved, ready for discharge Moderate to severe dysphagia -09/07/2020 ICU physician expressed concerns of overall prognosis of the patient despite recent extubation because of history of dysphagia. -09/08/2020 speech therapist informed hospitalist that patient is not outright choking based on the video swallow study but the risk of aspiration in future is still present because patient is impulsive with eating the food. hospitalist accepted recommendations from speech therapist that with an oral diet, the patient will have to be closely supervised and this has been done by nursing staff s/p EGD: unremarkable GI service does not recommend PEG tube placement at this point Speech Therapist recommending minced/moist diet, strict aspiration precautions seems to be tolerating minced/moist diet so far Informed RN to have patient be supervised with his meals at all times (need to emphasize this at the SNF as well, also discussed with ) (2) Alzheimer's dementia: (2) Alzheimer's dementia: History of Alzheimer's dementia - PRN Zyprexa ordered for agitation - Calm and cooperative, reading magazine [id number] observation checks (3) BPH (benign prostatic hyperplasia): (3) BPH (benign prostatic hyperplasia): - madrigal placed by urology service on 09/06/2020 while under ICU level of care - per Urologist: Leave catheter indwelling for 1 week or can remove this Saturday. Remove only if patient able to stand to void. Started finasteride for possible BPH. - removed Madrigal Cath on 09/16/20, pt is voiding (4) Aortic stenosis: Aortic stenosis: -history of severe aortic stenosis, last echo 07/2020 ([facility]) (5) PSVT (paroxysmal supraventricular tachycardia) -09/08/2020 Patient noted to have run of SVT and cardiology was consulted Given IV metoprolol while n.p.o. -no SVT since -Transition to metoprolol to 12.5 mg twice daily, however now bradycardic, will hold (6) History of Hypertension - lisinopril and amlodipine - increased Amlodipine 10mg po daily (7) Type 2 diabetes mellitus - monitor blood sugars - sliding scale insulin as needed Full Code Status - on admission Disposition - awaiting acceptance to [facility] Admission and Anticipated Discharge Date Admission Date: September 06, 2020 Subjective Pt seen in follow up of aspiration pna and other med. problems. Pt is sitting up in bed, he is in NAD. He is not on 1:1 observation any more, q15 min checks. He is reading / looking through his [facility] magazine again. Pt denies any fever, chills, chest pain, shortness of breath, abd. pain. Review of Systems Review of Systems: All systems reviewed & are unremarkable except as noted in HPI & below Constitutional: no fever and no chills Respiratory: + cough (much improved); no dyspnea Cardiovascular: no chest pain and no palpitations Gastrointestinal: no abdominal pain, no nausea and no vomiting Physical Exam Physical Exam: General- elderly male in NAD, awake and alert, oriented x 2, speaks in sentences with no effort or accessory muscle use Eyes- anicteric Neck- no JVD Lungs- very mild rhonchi (much improved), no wheezing, breathing comfortably on room air Heart- bradycardic; + syst. murmur 3/6 Abdomen- normal bowel sounds, nondistended, soft, nontender Extremities- no pretibial edema, no calf tenderness : Madrigal removed (on 09/16/20) Neuro- alert, oriented x 2; no new gross focal neurologic deficits Skin- warm & dry Results & Data Results & Data ([facility]) Vital Signs (Past 12 Hours) Vital Signs Temp Pulse Pulse Resp BP Pulse Ox 09/20/20 07:38 36.4 C L 46 L 18 164/62 H 97 09/20/20 07:25 50 L 09/20/20 03:00 36.6 C 59 L 18 157/61 H 98 09/20/20 02:14 54 L 09/19/20 23:48 36.5 C 75 18 118/56 L 94 Laboratory Results 09/20/20 09/20/20 09/20/20 Range/Units 11:37 10:25 10:25 WBC 7.74 (4.8-10.8) K/uL RBC 3.92 L (4.7-6.1) M/uL Hgb 12.3 L (14.0-18.0) g/dL Hct 36.9 L (42-52) % MCV 94.1 (80-100) fL MCH 31.4 (25-34) pg MCHC 33.3 (32-36) g/dL RDW Std Deviation 43.5 (36.4-46.3) fL RDW Coeff of Ailyn 12.6 (11.5-14.5) % Plt Count 316 (130-400) K/uL MPV 9.2 (7.4-10.4) fL Sodium 136 (136-145) mmol/L Potassium 4.1 (3.5-5.1) mmol/L Chloride 105 (98-107) mmol/L Carbon Dioxide 30 (21-32) mmol/L Anion Gap 1.0 L (3-11) BUN 19 H (7-18) mg/dl Creatinine 1.01 (0.6-1.4) mg/dl Est Cr Clr Drug Dosing 50.0 ml/min Est GFR ( Amer) 78.2 Est GFR (Non-Af Amer) 67.5 BUN/Creatinine Ratio 18.9 (10-20) Glucose 95 (70-99) mg/dl POC Glucose 102 H (70-99) mg/dl Calcium 8.5 (8.5-10.1) mg/dl 09/20/20 09/19/20 09/19/20 Range/Units 07:46 20:10 16:28 WBC (4.8-10.8) K/uL RBC (4.7-6.1) M/uL Hgb (14.0-18.0) g/dL Hct (42-52) % MCV (80-100) fL MCH (25-34) pg MCHC (32-36) g/dL RDW Std Deviation (36.4-46.3) fL RDW Coeff of Ailyn (11.5-14.5) % Plt Count (130-400) K/uL MPV (7.4-10.4) fL Sodium (136-145) mmol/L Potassium (3.5-5.1) mmol/L Chloride (98-107) mmol/L Carbon Dioxide (21-32) mmol/L Anion Gap (3-11) BUN (7-18) mg/dl Creatinine (0.6-1.4) mg/dl Est Cr Clr Drug Dosing ml/min Est GFR ( Amer) Est GFR (Non-Af Amer) BUN/Creatinine Ratio (10-20) Glucose (70-99) mg/dl POC Glucose 169 H 105 H 106 H (70-99) mg/dl Calcium (8.5-10.1) mg/dl Medications Administered Current Inpatient Medications Acetaminophen (Acetaminophen 325 Mg Tab) 650 mg PO Q6H PRN PRN Reason: Fever Stop: 10/13/20 20:21 Last Admin: 09/13/20 20:39 Dose: 650 mg Documented by: Amlodipine Besylate (Amlodipine Besylate 5 Mg Tab) 10 mg PO [facility] Stop: 10/15/20 08:59 Last Admin: 09/20/20 08:44 Dose: 10 mg Documented by: Dextrose (Dextrose 50% 50 Ml Syringe) 25 - 50 ml IV UD PRN; Protocol PRN Reason: Hypoglycemia Protocol Stop: 10/06/20 06:29 Last Admin: 09/08/20 05:51 Dose: 25 ml Documented by: Finasteride (Finasteride 5 Mg Tab) 5 mg PO [facility] Stop: 10/11/20 08:59 Last Admin: 09/20/20 08:43 Dose: 5 mg Documented by: Glucagon (Glucagon For Inj 1 Mg Vial) 1 mg SQ UD PRN; Protocol PRN Reason: Hypoglycemia Protocol Stop: 10/06/20 06:29 Glucose (Glucose 40% Gel 15 Gm Tube) 15 - 30 gm PO UD PRN; Protocol PRN Reason: Hypoglycemia Protocol Stop: 10/06/20 06:29 Glucose (Glucose 10 Tabs/Tube) 4 - 8 tabs PO UD PRN; Protocol PRN Reason: Hypoglycemia Protocol Stop: 10/06/20 06:29 Guaifenesin (Guaifenesin 600 Mg Tabcr) 600 mg PO Q12 [facility] Stop: 10/19/20 08:59 Last Admin: 09/20/20 08:45 Dose: 600 mg Documented by: Hydralazine HCl (Hydralazine Hcl 20 Mg/Ml Vial) 10 mg IV Q6H PRN PRN Reason: hypertension Stop: 10/12/20 17:44 Last Admin: 09/15/20 21:03 Dose: 10 mg Documented by: Clindamycin Phosphate 600 mg/ (Dextrose) 54 mls @ 100 mls/hr IV Q8H [facility] Stop: 09/21/20 09:59 Last Infusion: 09/20/20 01:46 Dose: Infused Documented by: Insulin Aspart (Insulin Aspart 100 Units/Ml 3 Ml Pen) 0 units SC ACHS [facility] Stop: 10/08/20 20:59 Last Admin: 09/20/20 08:46 Dose: Not Given Documented by: Lisinopril (Lisinopril 40 Mg Tab) 40 mg PO DAILY [facility] Stop: 10/11/20 15:29 Last Admin: 09/20/20 08:43 Dose: 40 mg Documented by: Metoprolol Tartrate (Metoprolol Tartrate 1 Mg/Ml Vial) 2.5 mg IV Q6 PRN PRN Reason: Tachycardia Stop: 10/09/20 00:00 Last Admin: 09/09/20 05:17 Dose: 2.5 mg Documented by: Metoprolol Tartrate (Metoprolol Tartrate 25 Mg Tab) 12.5 mg PO BID [facility] Stop: 10/11/20 20:59 Last Admin: 09/20/20 08:43 Dose: 12.5 mg Documented by: Miconazole Nitrate (Miconazole Nitrate Powder 43 Gm) 1 appln EXT PRN PRN PRN Reason: reddened buttocks Stop: 10/15/20 18:10 Miscellaneous (Carbohydrates For Hypoglycemia ) 15 - 30 gm PO UD PRN PRN Reason: Hypoglycemia Treatment Stop: 10/06/20 06:29 Olanzapine (Olanzapine 2.5 Mg Tab) 2.5 mg PO DAILY PRN PRN Reason: Agitation Stop: 10/11/20 08:59 Last Admin: 09/16/20 18:19 Dose: 2.5 mg Documented by: (1) Aortic stenosis Cardiac valve disease etiology: nonrheumatic Qualified Code(s): I35.0 - Nonrheumatic aortic (valve) stenosis (2) Aspiration into airway Encounter type: initial encounter Qualified Code(s): T17.908A - Unspecified foreign body in respiratory tract, part unspecified causing other injury, initial encounter
[2020-09-20 10:42] LABS: Hematocrit (blood only) 36.9 % (42-52); Hemoglobin 12.3 g/dL (14.0-18.0); Mean Corpuscular Hemoglobin 31.4 pg (25-34); Mean Corpuscular Hgb Conc 33.3 g/dL (32-36); Mean Corpuscular Volume 94.1 fL (80-100); Mean Platelet Volume 9.2 fL (7.4-10.4); Platelet Count 316 K/uL (130-400); RDW Coefficient of Variation 12.6 % (11.5-14.5); RDW Standard Deviation 43.5 fL (36.4-46.3); Red Blood Count 3.92 M/uL (4.7-6.1); White Blood Count 7.74 K/uL (4.8-10.8)
[2020-09-20 11:07] LABS: BUN Creatinine Ratio 18.9 (10-20); Calcium 8.5 mg/dl (8.5-10.1); Est GFR (African American) 78.2; Est GFR (Non-African American) 67.5; Potassium 4.1 mmol/L (3.5-5.1)
[2020-09-21] MEDS: CLINDAMYCIN 600 MG in DEXTROSE 5% 50 ML IV SCH (01:11)
[2020-09-21] MEDS: METOPROLOL TARTRATE 25 MG TAB PO SCH ×2 (08:17→20:00)
[2020-09-21] MEDS: guaiFENesin 600 MG TABCR PO SCH ×2 (08:17→21:10)
[2020-09-21] MEDS: lisinopril 40 MG TAB PO SCH (08:17)
[2020-09-21] MEDS: FINASTERIDE 5 MG TAB PO SCH (08:18)
[2020-09-21] MEDS: amLODIPine BESYLATE 5 MG TAB PO SCH (08:18)
--- NOTE | 2020-09-21 10:28 | Hospitalist Progress Note ---
Date of Service September 21, 2020 Assessment & Plan (1) Aspiration into airway: (1) Dysphagia: (1) Aspiration into airway: Unresponsiveness at home likely due to aspiration Acute hypoxic respiratory failure Possible aspiration pneumonia - Patient was intubated by EMS prior to arrival -admission CTA: No pulmonary emboli identified, Multifocal groundglass opacities within the lungs which favor an infectious process or sequela of aspiration, Moderately distended debris-filled esophagus. -Patient was extubated on 09/06/2020, currently on room air oxygen 09/16/19 alert, oriented x 1-2 afebrile, saturating well on room air Has already received 5 days of ertapenem IV (+) aspiration signs noted 09/13/19 repeat CXR bibasilar infiltrates Speech Tx re-consulted, recommend to continue present diet- strict aspirations precaution permissive aspiration discussed with patiet's to preserve quality of life, agreeable with plan of care PEG tube not recommended by GI service Clindamycin Day #7, course finished IS, flutter valve. mucinex Clinically pt much improved, ready for discharge Moderate to severe dysphagia -09/07/2020 ICU physician expressed concerns of overall prognosis of the patient despite recent extubation because of history of dysphagia. -09/08/2020 speech therapist informed hospitalist that patient is not outright choking based on the video swallow study but the risk of aspiration in future is still present because patient is impulsive with eating the food. hospitalist accepted recommendations from speech therapist that with an oral diet, the patient will have to be closely supervised and this has been done by nursing staff s/p EGD: unremarkable GI service does not recommend PEG tube placement at this point Speech Therapist recommending minced/moist diet, strict aspiration precautions seems to be tolerating minced/moist diet so far Informed RN to have patient be supervised with his meals at all times (need to emphasize this at the SNF as well, also discussed with ) (2) Alzheimer's dementia: (2) Alzheimer's dementia: History of Alzheimer's dementia - PRN Zyprexa ordered for agitation - Calm and cooperative, reading magazine - now on no observation (3) BPH (benign prostatic hyperplasia): (3) BPH (benign prostatic hyperplasia): - madrigal placed by urology service on 09/06/2020 while under ICU level of care - per Urologist: Leave catheter indwelling for 1 week or can remove this Tuesday. Remove only if patient able to stand to void. Started finasteride for possible BPH. - removed Madrigal Cath on 09/16/20, pt is voiding (4) Aortic stenosis: Aortic stenosis: -history of severe aortic stenosis, last echo 07/2020 ([facility]) (5) PSVT (paroxysmal supraventricular tachycardia) -09/08/2020 Patient noted to have run of SVT and cardiology was consulted Given IV metoprolol while n.p.o. -no SVT since -Transition to metoprolol to 12.5 mg twice daily, however now bradycardic, will hold (6) History of Hypertension - lisinopril and amlodipine - increased Amlodipine 10mg po daily (7) Type 2 diabetes mellitus - monitor blood sugars - sliding scale insulin as needed Full Code Status - on admission Disposition - awaiting acceptance to [facility] Admission and Anticipated Discharge Date Admission Date: September 06, 2020 Subjective Pt seen in follow up of aspiration pna and other med. problems. Pt is sitting up in chair today reading magazines. He is in NAD. No observation required at this time. Pt denies any fever, chills, chest pain, shortness of breath, abd. pain. Review of Systems Review of Systems: All systems reviewed & are unremarkable except as noted in HPI & below Constitutional: no fever and no chills Respiratory: + cough (much improved); no dyspnea Cardiovascular: no chest pain and no palpitations Gastrointestinal: no abdominal pain, no nausea and no vomiting Physical Exam Physical Exam: General- elderly male in NAD, awake and alert, oriented x 2, speaks in sentences with no effort or accessory muscle use Eyes- anicteric Neck- no JVD Lungs- very mild rhonchi (much improved), no wheezing, breathing comfortably on room air Heart- RRR + syst. murmur 3/6 Abdomen- normal bowel sounds, nondistended, soft, nontender Extremities- no pretibial edema, no calf tenderness : Madrigal removed (on 09/16/20) Neuro- alert, oriented x 2; no new gross focal neurologic deficits Skin- warm & dry Results & Data Results & Data ([facility]) Vital Signs (Past 12 Hours) Vital Signs Temp Pulse Pulse Pulse Resp BP BP 09/21/20 08:21 35.6 C L 61 61 16 105/54 L 09/21/20 00:33 52 L 09/20/20 22:37 36.6 C 52 L 16 140/60 Pulse Ox 09/21/20 08:21 99 09/21/20 00:33 09/20/20 22:37 96 Medications Administered Current Inpatient Medications Acetaminophen (Acetaminophen 325 Mg Tab) 650 mg PO Q6H PRN PRN Reason: Fever Stop: 10/13/20 20:21 Last Admin: 09/13/20 20:39 Dose: 650 mg Documented by: Amlodipine Besylate (Amlodipine Besylate 5 Mg Tab) [facility] Stop: 10/15/20 08:59 Last Admin: 09/21/20 08:18 Dose: 10 mg Documented by: Dextrose (Dextrose 50% 50 Ml Syringe) 25 - 50 ml IV UD PRN; Protocol PRN Reason: Hypoglycemia Protocol Stop: 10/06/20 06:29 Last Admin: 09/08/20 05:51 Dose: 25 ml Documented by: Finasteride (Finasteride 5 Mg Tab) 5 mg PO [facility] Stop: 10/11/20 08:59 Last Admin: 09/21/20 08:18 Dose: 5 mg Documented by: Glucagon (Glucagon For Inj 1 Mg Vial) 1 mg SQ UD PRN; Protocol PRN Reason: Hypoglycemia Protocol Stop: 10/06/20 06:29 Glucose (Glucose 40% Gel 15 Gm Tube) 15 - 30 gm PO UD PRN; Protocol PRN Reason: Hypoglycemia Protocol Stop: 10/06/20 06:29 Glucose (Glucose 10 Tabs/Tube) 4 - 8 tabs PO UD PRN; Protocol PRN Reason: Hypoglycemia Protocol Stop: 10/06/20 06:29 Guaifenesin (Guaifenesin 600 Mg Tabcr) 600 mg PO Q12 [facility] Stop: 10/19/20 08:59 Last Admin: 09/21/20 08:17 Dose: 600 mg Documented by: Hydralazine HCl (Hydralazine Hcl 20 Mg/Ml Vial) 10 mg IV Q6H PRN PRN Reason: hypertension Stop: 10/12/20 17:44 Last Admin: 09/15/20 21:03 Dose: 10 mg Documented by: Insulin Aspart (Insulin Aspart 100 Units/Ml 3 Ml Pen) 0 units SC [facility] Stop: 10/08/20 20:59 Last Admin: 09/20/20 20:34 Dose: Not Given Documented by: Lisinopril (Lisinopril 40 Mg Tab) 40 mg PO DAILY [facility] Stop: 10/11/20 15:29 Last Admin: 09/21/20 08:17 Dose: 40 mg Documented by: Metoprolol Tartrate (Metoprolol Tartrate 1 Mg/Ml Vial) 2.5 mg IV Q6 PRN PRN Reason: Tachycardia Stop: 10/09/20 00:00 Last Admin: 09/09/20 05:17 Dose: 2.5 mg Documented by: Metoprolol Tartrate (Metoprolol Tartrate 25 Mg Tab) 12.5 mg PO BID [facility] Stop: 10/11/20 20:59 Last Admin: 09/21/20 08:17 Dose: Not Given Documented by: Miconazole Nitrate (Miconazole Nitrate Powder 43 Gm) 1 appln EXT PRN PRN PRN Reason: reddened buttocks Stop: 10/15/20 18:10 Miscellaneous (Carbohydrates For Hypoglycemia ) 15 - 30 gm PO UD PRN PRN Reason: Hypoglycemia Treatment Stop: 10/06/20 06:29 Olanzapine (Olanzapine 2.5 Mg Tab) 2.5 mg PO DAILY PRN PRN Reason: Agitation Stop: 10/11/20 08:59 Last Admin: 09/16/20 18:19 Dose: 2.5 mg Documented by: (1) Aspiration into airway Encounter type: initial encounter Qualified Code(s): T17.908A - Unspecified foreign body in respiratory tract, part unspecified causing other injury, initial encounter (2) Aortic stenosis Cardiac valve disease etiology: nonrheumatic Qualified Code(s): I35.0 - Nonrheumatic aortic (valve) stenosis
[2020-09-21] MEDS: INSULIN ASPART 100 UNITS/ML 3 ML PEN SC SCH ×4 (11:16→20:27)
[2020-09-22] MEDS: lisinopril 40 MG TAB PO SCH (07:26)
[2020-09-22] MEDS: METOPROLOL TARTRATE 25 MG TAB PO SCH ×2 (07:26→20:19)
[2020-09-22] MEDS: amLODIPine BESYLATE 5 MG TAB PO SCH (07:27)
[2020-09-22] MEDS: guaiFENesin 600 MG TABCR PO SCH ×2 (07:27→20:19)
[2020-09-22] MEDS: FINASTERIDE 5 MG TAB PO SCH (07:27)
[2020-09-22] MEDS: INSULIN ASPART 100 UNITS/ML 3 ML PEN SC SCH ×4 (07:43→21:06)
--- NOTE | 2020-09-22 08:19 | Hospitalist Progress Note ---
Date of Service September 22, 2020 Assessment & Plan (1) Aspiration into airway: (1) Dysphagia: (1) Aspiration into airway: Unresponsiveness at home likely due to aspiration Acute hypoxic respiratory failure Possible aspiration pneumonia - Patient was intubated by EMS prior to arrival -admission CTA: No pulmonary emboli identified, Multifocal groundglass opacities within the lungs which favor an infectious process or sequela of aspiration, Moderately distended debris-filled esophagus. -Patient was extubated on 09/06/2020, currently on room air oxygen 09/16/19 alert, oriented x 1-2 afebrile, saturating well on room air Has already received 5 days of ertapenem IV (+) aspiration signs noted 09/13/19 repeat CXR bibasilar infiltrates Speech Tx re-consulted, recommend to continue present diet- strict aspirations precaution permissive aspiration discussed with patiet's to preserve quality of life, agreeable with plan of care PEG tube not recommended by GI service Clindamycin Day #7, course finished IS, flutter valve. mucinex Clinically pt much improved, ready for discharge Moderate to severe dysphagia -09/07/2020 ICU physician expressed concerns of overall prognosis of the patient despite recent extubation because of history of dysphagia. -09/08/2020 speech therapist informed hospitalist that patient is not outright choking based on the video swallow study but the risk of aspiration in future is still present because patient is impulsive with eating the food. hospitalist accepted recommendations from speech therapist that with an oral diet, the patient will have to be closely supervised and this has been done by nursing staff s/p EGD: unremarkable GI service does not recommend PEG tube placement at this point Speech Therapist recommending minced/moist diet, strict aspiration precautions seems to be tolerating minced/moist diet so far Informed RN to have patient be supervised with his meals at all times (need to emphasize this at the SNF as well, also discussed with ) (2) Alzheimer's dementia: (2) Alzheimer's dementia: History of Alzheimer's dementia - PRN Zyprexa ordered for agitation - Calm and cooperative, reading magazine - now on no observation (3) BPH (benign prostatic hyperplasia): (3) BPH (benign prostatic hyperplasia): - madrigal placed by urology service on 09/06/2020 while under ICU level of care - per Urologist: Leave catheter indwelling for 1 week or can remove this Tuesday. Remove only if patient able to stand to void. Started finasteride for possible BPH. - removed Madrigal Cath on 09/16/20, pt is voiding (4) Aortic stenosis: Aortic stenosis: -history of severe aortic stenosis, last echo 07/2020 ([facility]) (5) PSVT (paroxysmal supraventricular tachycardia) -09/08/2020 Patient noted to have run of SVT and cardiology was consulted Given IV metoprolol while n.p.o. -no SVT since -Transition to metoprolol to 12.5 mg twice daily, however now bradycardic, will discontinue (6) History of Hypertension - lisinopril and amlodipine - increased Amlodipine 10mg po daily (7) Type 2 diabetes mellitus - monitor blood sugars - sliding scale insulin as needed Full Code Status - on admission Disposition - awaiting acceptance to [facility] Admission and Anticipated Discharge Date Admission Date: September 06, 2020 Subjective Pt seen in follow up of aspiration pna and other med. problems. Pt is sitting up in chair today reading magazines. He is in NAD. No observation required at this time. Pt denies any fever, chills, chest pain, shortness of breath, abd. pain. Review of Systems Review of Systems: All systems reviewed & are unremarkable except as noted in HPI & below Constitutional: no fever and no chills Respiratory: + cough (much improved); no dyspnea Cardiovascular: no chest pain and no palpitations Gastrointestinal: no abdominal pain, no nausea and no vomiting Physical Exam Physical Exam: General- elderly male in NAD, awake and alert, oriented x 2, speaks in sentences with no effort or accessory muscle use Eyes- anicteric Neck- no JVD Lungs- very mild rhonchi (much improved), no wheezing, breathing comfortably on room air Heart- RRR + syst. murmur 3/6 Abdomen- normal bowel sounds, nondistended, soft, nontender Extremities- no pretibial edema, no calf tenderness : Madrigal removed (on 09/16/20) Neuro- alert, oriented x 2; no new gross focal neurologic deficits Skin- warm & dry Results & Data Results & Data ([facility]) Vital Signs (Past 12 Hours) Vital Signs Temp Pulse Pulse Resp BP Pulse Ox 09/22/20 08:00 62 09/22/20 07:18 36.4 C L 53 L 18 152/66 H 98 09/22/20 03:05 36.6 C 57 L 18 161/66 H 98 09/21/20 23:09 58 L 09/21/20 22:10 36.7 C 60 18 134/62 98 Laboratory Results 09/22/20 09/21/20 09/21/20 Range/Units 07:35 20:16 16:40 POC Glucose 92 137 H 156 H (70-99) mg/dl 09/21/20 Range/Units 11:33 POC Glucose 104 H (70-99) mg/dl Medications Administered Current Inpatient Medications Acetaminophen (Acetaminophen 325 Mg Tab) 650 mg PO Q6H PRN PRN Reason: Fever Stop: 10/13/20 20:21 Last Admin: 09/13/20 20:39 Dose: 650 mg Documented by: Amlodipine Besylate (Amlodipine Besylate 5 Mg Tab) 10 mg PO QAM [facility] Stop: 10/15/20 08:59 Last Admin: 09/22/20 07:27 Dose: 10 mg Documented by: Dextrose (Dextrose 50% 50 Ml Syringe) 25 - 50 ml IV UD PRN; Protocol PRN Reason: Hypoglycemia Protocol Stop: 10/06/20 06:29 Last Admin: 09/08/20 05:51 Dose: 25 ml Documented by: Finasteride (Finasteride 5 Mg Tab) 5 mg PO QAM [facility] Stop: 10/11/20 08:59 Last Admin: 09/22/20 07:27 Dose: 5 mg Documented by: Glucagon (Glucagon For Inj 1 Mg Vial) 1 mg SQ UD PRN; Protocol PRN Reason: Hypoglycemia Protocol Stop: 10/06/20 06:29 Glucose (Glucose 40% Gel 15 Gm Tube) 15 - 30 gm PO UD PRN; Protocol PRN Reason: Hypoglycemia Protocol Stop: 10/06/20 06:29 Glucose (Glucose 10 Tabs/Tube) 4 - 8 tabs PO UD PRN; Protocol PRN Reason: Hypoglycemia Protocol Stop: 10/06/20 06:29 Guaifenesin (Guaifenesin 600 Mg Tabcr) 600 mg PO Q12 [facility] Stop: 10/19/20 08:59 Last Admin: 09/22/20 07:27 Dose: 600 mg Documented by: Hydralazine HCl (Hydralazine Hcl 20 Mg/Ml Vial) 10 mg IV Q6H PRN PRN Reason: hypertension Stop: 10/12/20 17:44 Last Admin: 09/15/20 21:03 Dose: 10 mg Documented by: Insulin Aspart (Insulin Aspart 100 Units/Ml 3 Ml Pen) 0 units SC ACHS [facility] Stop: 10/08/20 20:59 Last Admin: 09/22/20 07:43 Dose: Not Given Documented by: Lisinopril (Lisinopril 40 Mg Tab) 40 mg PO DAILY [facility] Stop: 10/11/20 15:29 Last Admin: 09/22/20 07:26 Dose: 40 mg Documented by: Metoprolol Tartrate (Metoprolol Tartrate 1 Mg/Ml Vial) 2.5 mg IV Q6 PRN PRN Reason: Tachycardia Stop: 10/09/20 00:00 Last Admin: 09/09/20 05:17 Dose: 2.5 mg Documented by: Metoprolol Tartrate (Metoprolol Tartrate 25 Mg Tab) 12.5 mg PO BID [facility] Stop: 10/11/20 20:59 Last Admin: 09/22/20 07:26 Dose: 12.5 mg Documented by: Miconazole Nitrate (Miconazole Nitrate Powder 43 Gm) 1 appln EXT PRN PRN PRN Reason: reddened buttocks Stop: 10/15/20 18:10 Miscellaneous (Carbohydrates For Hypoglycemia ) 15 - 30 gm PO UD PRN PRN Reason: Hypoglycemia Treatment Stop: 10/06/20 06:29 Olanzapine (Olanzapine 2.5 Mg Tab) 2.5 mg PO DAILY PRN PRN Reason: Agitation Stop: 10/11/20 08:59 Last Admin: 09/16/20 18:19 Dose: 2.5 mg Documented by: (1) Aortic stenosis Cardiac valve disease etiology: nonrheumatic Qualified Code(s): I35.0 - Nonrheumatic aortic (valve) stenosis (2) Aspiration into airway Encounter type: initial encounter Qualified Code(s): T17.908A - Unspecified foreign body in respiratory tract, part unspecified causing other injury, initial encounter
[2020-09-23] MEDS: hydrALAZINE HCL 20 MG/ML VIAL IV PRN (05:03)
[2020-09-23] MEDS: guaiFENesin 600 MG TABCR PO SCH (08:14)
[2020-09-23] MEDS: FINASTERIDE 5 MG TAB PO SCH (08:15)
[2020-09-23] MEDS: amLODIPine BESYLATE 5 MG TAB PO SCH (08:15)
[2020-09-23] MEDS: lisinopril 40 MG TAB PO SCH (08:15)
[2020-09-23] MEDS: INSULIN ASPART 100 UNITS/ML 3 ML PEN SC SCH ×2 (08:28→12:00)
[2020-09-23] MEDS: METOPROLOL TARTRATE 25 MG TAB PO SCH (08:30)
--- NOTE | 2020-09-23 11:44 | Hospitalist Progress Note ---
Date of Service September 23, 2020 Assessment & Plan (1) Aspiration into airway: (1) Dysphagia: (1) Aspiration into airway: Unresponsiveness at home likely due to aspiration Acute hypoxic respiratory failure Aspiration pneumonia - Patient was intubated by EMS prior to arrival -admission CTA: No pulmonary emboli identified, Multifocal groundglass opacities within the lungs which favor an infectious process or sequela of aspiration, Moderately distended debris-filled esophagus. -Patient was extubated on 09/06/2020, currently on room air oxygen 09/16/19 alert, oriented x 1-2 afebrile, saturating well on room air Has already received 5 days of ertapenem IV (+) aspiration signs noted 09/13/19 repeat CXR bibasilar infiltrates Speech Tx re-consulted, recommend to continue present diet- strict aspirations precaution permissive aspiration discussed with patiet's to preserve quality of life, agreeable with plan of care PEG tube not recommended by GI service Clindamycin Day #7, course finished IS, flutter valve. mucinex Clinically pt much improved, ready for discharge Moderate to severe dysphagia -09/07/2020 ICU physician expressed concerns of overall prognosis of the patient despite recent extubation because of history of dysphagia. -09/08/2020 speech therapist informed hospitalist that patient is not outright choking based on the video swallow study but the risk of aspiration in future is still present because patient is impulsive with eating the food. hospitalist accepted recommendations from speech therapist that with an oral diet, the patient will have to be closely supervised and this has been done by nursing staff s/p EGD: unremarkable GI service does not recommend PEG tube placement at this point Speech Therapist recommending minced/moist diet, strict aspiration precautions seems to be tolerating minced/moist diet so far Informed RN to have patient be supervised with his meals at all times (need to emphasize this at the SNF as well, also discussed with ) (2) Alzheimer's dementia: (2) Alzheimer's dementia: History of Alzheimer's dementia - PRN Zyprexa ordered for agitation - Calm and cooperative, reading magazine - now on no observation (3) BPH (benign prostatic hyperplasia): (3) BPH (benign prostatic hyperplasia): - madrigal placed by urology service on 09/06/2020 while under ICU level of care - per Urologist: Leave catheter indwelling for 1 week or can remove this Tuesday. Remove only if patient able to stand to void. Started finasteride for possible BPH. - removed Madrigal Cath on 09/16/20, pt is voiding (4) Aortic stenosis: Aortic stenosis: -history of severe aortic stenosis, last echo 07/2020 ([facility]) (5) PSVT (paroxysmal supraventricular tachycardia) -09/08/2020 Patient noted to have run of SVT and cardiology was consulted Given IV metoprolol while n.p.o. -no SVT since -Transitioned to metoprolol to 12.5 mg twice daily, however then bradycardic, discontinued (6) History of Hypertension - lisinopril and amlodipine - increased Amlodipine 10mg po daily (7) Type 2 diabetes mellitus - monitor blood sugars - sliding scale insulin as needed Full Code Status - on admission Disposition - awaiting acceptance to [facility] Admission and Anticipated Discharge Date Admission Date: September 06, 2020 Subjective Pt seen in follow up of aspiration pna and other med. problems. Pt is laying in bed today watching TV. He is in NAD. No observation required at this time. Pt denies any fever, chills, chest pain, shortness of breath, abd. pain. Pt using IS and flutter valve w/o any difficulty but needs to be reminded. Review of Systems Review of Systems: All systems reviewed & are unremarkable except as noted in HPI & below Constitutional: no fever and no chills Respiratory: no cough and no dyspnea Cardiovascular: no chest pain and no palpitations Gastrointestinal: no abdominal pain, no nausea and no vomiting Physical Exam Physical Exam: General- elderly male in NAD, awake and alert, oriented x 2, speaks in sentences with no effort or accessory muscle use Eyes- anicteric Neck- no JVD Lungs- very mild rhonchi (much improved), no wheezing, breathing comfortably on room air Heart- RRR + syst. murmur 3/6 Abdomen- normal bowel sounds, nondistended, soft, nontender Extremities- no pretibial edema, no calf tenderness Neuro- alert, oriented x 2; no new gross focal neurologic deficits Skin- warm & dry Results & Data Results & Data ([facility]) Vital Signs (Past 12 Hours) Vital Signs Temp Pulse Pulse Resp BP BP Pulse Ox 09/23/20 11:32 36.2 C L 54 L 16 141/55 H 98 09/23/20 07:15 36.5 C 54 L 18 135/63 98 09/23/20 06:56 50 L 09/23/20 04:35 36.5 C 52 L 20 170/67 H 98 (1) Aortic stenosis Cardiac valve disease etiology: nonrheumatic Qualified Code(s): I35.0 - Nonrheumatic aortic (valve) stenosis (2) Aspiration into airway Encounter type: initial encounter Qualified Code(s): T17.908A - Unspecified foreign body in respiratory tract, part unspecified causing other injury, initial encounter
--- NOTE | 2020-09-23 12:00 | Discharge Summary ---
Date of Service September 23, 2020 Admission HPI Per Admitting Provider This is an 85-year-old male with past medical history significant for type 2 diabetes, not on any medications, hyperlipidemia, chronic rhinitis, ascending aortic dilatation, severe aortic valve stenosis, history of mitral valve vegetation, hypertension, mitral valve insufficiency, benign neoplasm of colon, nocturnal enuresis, sensorineural hearing loss, Alzheimer's dementia, history of prostate cancer, who lives with his . As per , the patient has significant dementia. He knows his name, knows his , but keeps on repeating the same thing. His appetite is good, he is supposed to use cane while walking, but ambulates without any support and is lately falling frequently and for last few weeks ago, he is also having some episodes of choking after eating. His asked him to use his dentures before eating but does not use them and he complains of food stuck in his throat and she has to do Heimlich maneuver few times.Tonight he had a good dinner and he used his dentures tonight and he went to sleep. He sleeps downstairs in his cave and in the middle of night around 2:00-2:30 a.m., he woke up and came upstairs and his sister who is visiting noticed him and she called his that he is not looking good and when she came and saw the patient, he was pointing his hand to his throat and chest. He was not able to speak, when they asked whether he ate anything, they took him to the bathroom to make him vomit, but in the bathroom suddenly he collapsed and became unresponsive. They called EMS and when the EMS came, and there was a pulse and they started bagging him and his oxygen saturation was okay and BP was somewhat high, but as he was still unresponsive, they decided to intubate him to protect his airway. He was intubated without any difficulty. They found some vomitus in the back of his throat, which was aspirated and the patient was given Versed and fentanyl after that the patient was brought into the hospital.Patient was still unresponsive in the ER. His labs were unremarkable. His imaging studies, he had CT of the head,CTA chest and CT of abdomen and pelvis were done which showed mid thoracic dilatation and possible atelectasis with aspiration. Currently trying to open his eyes, but still mostly unresponsive. Vitals are stable on the monitor. His initial ABG with point of care pH of 7.26, pCO2 was 59, pO2 was 339 and bicarbonate was 27, oxygen was 100% on vent. Initial labs were okay. SARS-CoV-2 were negative. in the room. She is okay with full code for short term, but does not want him to be on it senior living if no chance of recovery. ER also gave him Zosyn and fluids. Admission Exam Per Admitting Provider GENERAL: The patient is status post intubation and sedated. VITAL SIGNS: Temperature afebrile, pulse 61, respiratory rate 17, blood pressure 169/70, oxygen 100% on mechanical vent. HEENT: Pupils pinpoint sluggish to react to light, patient is status post intubation. NECK: No neck masses seen. CARDIOVASCULAR: S1, S2, regular, no murmur, no gallop. RESPIRATORY SYSTEM: Normal AP diameter. No accessory muscle use. No wheezing, no crackles. ABDOMEN: Soft, bowel sounds present. No distention. CENTRAL NERVOUS SYSTEM: The patient is currently intubated and sedated, moves his left foot to painful stimuli. EXTREMITIES: No edema, no erythema. Principal Diagnosis Unresponsive d/t Acute hypoxic respiratory failure Aspiration into airway Aspiration pneumonia Moderate to severe dysphagia Alzheimer's dementia Discharge Exam General- elderly male in NAD, awake and alert, oriented x 2, speaks in sentences with no effort or accessory muscle use Eyes- anicteric Neck- no JVD Lungs- very mild rhonchi (much improved), no wheezing, breathing comfortably on room air Heart- RRR + syst. murmur 3/6 Abdomen- normal bowel sounds, nondistended, soft, nontender Extremities- no pretibial edema, no calf tenderness Neuro- alert, oriented x 2; no new gross focal neurologic deficits Skin- warm & dry Discharge Data Allergies Allergy/AdvReac Type Severity Reaction Status Date / Time Penicillins Allergy Unknown UNKNOWN Verified 09/06/20 03:06 REACTION - HAPPENED A CHILD Consultations 09/06/20 06:09 Consult Case Management - Discharge Planning Routine 09/06/20 07:59 Consult Urology Routine 09/06/20 08:00 Consult Gastroenterology Routine 09/08/20 10:14 Consult Cardiology Routine Procedures Performed Operation Date: 09/10/20 07:00 Actual Procedures p Esophagogastroduodenoscopy(Not Applicable) - Jody THarlan Corbett, Operation Date: 09/10/20 16:00 <No data on this case meets the specified criteria> Ordered Studies 09/06/20 02:52 CT head/brain wo con Urgent IMPRESSION: No acute intracranial findings. 09/06/20 02:57 CT abd pelvis IV con only Urgent IMPRESSION: 1. Moderate to large amount of stool within the colon and rectum. 2. No bowel obstruction. No bowel wall thickening. 09/06/20 03:02 CT angio chest PE protocol Urgent IMPRESSION: 1. No pulmonary emboli identified. 2. Multifocal groundglass opacities within the lungs which favor an infectious process or sequela of aspiration. 3. Moderately distended debris-filled esophagus. 4. Moderate cardiomegaly. 5. Ectatic ascending aorta, measuring 4.3 cm. 6. Tip of endotracheal tube 4 cm above the rima. 09/08/20 13:00 FL video swallow Routine Hospital Course (1) Aspiration into airway: (1) Dysphagia: (1) Aspiration into airway: Unresponsiveness at home likely due to aspiration Acute hypoxic respiratory failure Aspiration pneumonia - Patient was intubated by EMS prior to arrival -admission CTA: No pulmonary emboli identified, Multifocal groundglass opacities within the lungs which favor an infectious process or sequela of aspiration, Moderately distended debris-filled esophagus. -Patient was extubated on 09/06/2020, currently on room air oxygen 09/16/19 alert, oriented x 1-2 afebrile, saturating well on room air Has already received 5 days of ertapenem IV (+) aspiration signs noted 09/13/19 repeat CXR bibasilar infiltrates Speech Tx re-consulted, recommend to continue present diet- strict aspirations precaution permissive aspiration discussed with patiet's to preserve quality of life, agreeable with plan of care PEG tube not recommended by GI service Clindamycin Day #7, course finished IS, flutter valve. mucinex Clinically pt much improved, ready for discharge Moderate to severe dysphagia -09/07/2020 ICU physician expressed concerns of overall prognosis of the patient despite recent extubation because of history of dysphagia. -09/08/2020 speech therapist informed hospitalist that patient is not outright choking based on the video swallow study but the risk of aspiration in future is still present because patient is impulsive with eating the food. hospitalist accepted recommendations from speech therapist that with an oral diet, the patient will have to be closely supervised and this has been done by nursing staff s/p EGD: unremarkable GI service does not recommend PEG tube placement at this point Speech Therapist recommending minced/moist diet, strict aspiration precautions seems to be tolerating minced/moist diet so far Informed RN to have patient be supervised with his meals at all times (need to emphasize this at the SNF as well, also discussed with ) (2) Alzheimer's dementia: (2) Alzheimer's dementia: History of Alzheimer's dementia - PRN Zyprexa ordered for agitation - Calm and cooperative, reading magazine - now on no observation (3) BPH (benign prostatic hyperplasia): (3) BPH (benign prostatic hyperplasia): - madrigal placed by urology service on 09/06/2020 while under ICU level of care - per Urologist: Leave catheter indwelling for 1 week or can remove this Tuesday. Remove only if patient able to stand to void. Started finasteride for possible BPH. - removed Madrigal Cath on 09/16/20, pt is voiding (4) Aortic stenosis: Aortic stenosis: -history of severe aortic stenosis, last echo 07/2020 ([facility]) (5) PSVT (paroxysmal supraventricular tachycardia) -09/08/2020 Patient noted to have run of SVT and cardiology was consulted Given IV metoprolol while n.p.o. -no SVT since -Transitioned to metoprolol to 12.5 mg twice daily, however then bradycardic, discontinued Ectatic ascending aorta, - measuring 4.3 cm. -found on chest CT during ER work up - follow up as outpt (6) History of Hypertension - lisinopril and amlodipine - increased Amlodipine 10mg po daily (7) Type 2 diabetes mellitus - monitor blood sugars - sliding scale insulin as needed Full Code Status - on admission Disposition - [facility] Total Time Total Time Spent Total Time Spent (In Minutes): 40 Total Time Includes: Examination of the Patient, Discharge Planning, Medication Reconciliation and Communication With Other Providers Discharge Plan Discharge Items Patient Disposition: Transfer Inpatient Rehab Fac Reason For Visit: UNRESPONSIVE Discharge Diagnosis: Unresponsive d/t Acute hypoxic respiratory failure Aspiration into airway Aspiration pneumonia Moderate to severe dysphagia Alzheimer's dementia Activity: Per Instructions section Non-emergency contact: Primary Care Provider Call non-emergency contact if: you have any medication questions and your symptoms worsen Follow-up/Referrals: Juan Michel, DO [Primary Care Provider] - Diet: Carb Consistent or DM2 Diet Comment: STRICT ASPIRATION PRECAUTIONS, MINCED AND MOIST DIET Addtl Attending Provider Instructions: Follow up with primary care provider in 1-2 weeks. Continue using flutter valve and incentive spirometer every 4 hrs while awake. You amlodipine was increased to 10 mg daily to help with your higher blood pressure. Strict aspiration precautions Pending Studies at Discharge: No Stand-Alone Forms: My [facility] Skilled Items Patient informed of condition?: Yes DNR: No Discharge Level of Care: Acute rehab Communicable Disease: No Discharge Prognosis: Stable Lines: None Urinary Catheter: No Medications and DC Order Prescriptions: New guaifenesin [Mucinex] 600 mg Tablet Extended Release 12hr 600 mg PO Q12 5 Days Qty: 10 RF: 0 amlodipine [Norvasc] 5 mg Tablet 10 mg PO QAM 14 Days Qty: 28 RF: 0 finasteride [Proscar] 5 mg Tablet 5 mg PO QAM Qty: 30 RF: 0 Continued atorvastatin 40 mg tablet 40 mg PO DAILY RF: 0 folic acid 1 mg tablet 1 mg PO DAILY RF: 0 lisinopril 40 mg tablet 40 mg PO DAILY RF: 0 aspirin [Children's Aspirin] 81 mg Tablet,Chewable 81 mg PO DAILY RF: 0 multivitamin Tablet 1 tab PO DAILY RF: 0 cinnamon bark [Cinnamon] 500 mg Capsule 500 mg PO DAILY RF: 0 omega-3 fatty acids 1,000 mg Capsule 1,000 mg PO DAILY RF: 0 Discontinued amlodipine 5 mg tablet 5 mg PO DAILY RF: 0 Discharge Orders: Discharge Order (Routine); Ordered 09/23/20 Ordered By: Sohail Briceno Admission Data Admit Date/Time: 09/06/20 05:20 Attending Provider: Sohail Briceno Admit Provider: Dev Foster Primary Care Provider: Juan Michel Other Providers: Lenny Aviles ; [facility] ; Greg Jarquin ; Maite Weaver ; Greg Samuel ; Carlos Roblero
== END 2020-09-23 14:16 | DRG 208 ==
LOC: ED 02:44 → 1E 05:20 → SUATTDRO 05:20 → 1E 06:32 → 2S 09-08 01:55 → 2W 09-11 22:04